=== PATIENT | male | born 1955 | race Caucasian/White ===

== ENCOUNTER 2017-11-30 12:35 | Inpatient (IN) ==
[2017-11-30] MEDS ORDERED: DUONEB 0.5 MG/3 MG ONE (12:55)
--- NOTE | 2017-11-30 13:34 | DR.GENAD ---
HPI - PCP Primary Care Physician: carolyn weller - HPI Comment HPI Comment: GETTING WORSE. NO FEVER. - Complaint/Symptoms Chief Complaint Doctors Comments: SWELLING AND REDNESS RT LEG TIMES 9 DAYS. Chief Complaint:: pt. stated his right lower leg has been swelling and very red for 9 days and it hasnt got any better - Nurses notes reviewed Nurses Notes Review: Yes - Source History Provided: Patient - Mode of Arrival Mode of Arrival: Ambulatory - Timing Onset of Chief Complaint: 11/27/17 Came on: Suddenly - Duration Duration: Constant Duration: Days - Severity Severity: Moderate PMH - PMH Past Medical History: Yes Past Medical History: Asthma Past Surgical History: Yes Surgical History: Tonsillectomy - Family History History of Family Medical Conditions: Yes Family Medical History: Cancer - Social History Does patient currently use any type of tobacco product: Yes Have you used tobacco products in the last 12 months: Yes Type of Tobacco Use: Cigarettes How many years tobacco product used: 25 Does any household member use tobacco: No Alcohol Use: Occasionally Do you use any recreational Drugs:: No Lives With: Mom Lives Where: Home - infectious screening In the last 2 months have you had wt loss of >10#?: NO Have you had fever, night sweats or hemotysis?: No Have you traveled outside the country in the last 6 months?: No Isolation: Standard ROS - Review of Systems Constitutional: No Symptoms Reported Eyes: No Symptoms Reported ENTM: No Symptoms Reported Respiratoy: No Symptoms Reported Cardiovascular: No Symptoms Reported Gastrointestinal/Abdominal: No Symptoms Reported Genitourinary: No Symptoms Reported Neurological: No Symptoms Reported Musculoskeletal: Right, Leg (SWELLING AND PAIN.) Integumentary: Bruises Hematologic/Lymphatic: No Symptoms Reported Endocrine: No Symptoms Reported All Other Systems: Reviewed and Negative PE - General Limitations: No Limitations General Appearance: Alert - Head Head Exam: Normal Inspection - Eyes Eye exam: Normal Appearance - ENT ENT Exam: Normal External Ear Exam External Ear Exam: Normal External Inspection TM/Canal Exam: Bilateral Normal Nose Exam: Normal Nose Exam Mouth Exam: Normal Inspection Throat Exam: Normal Inspection - Neck Neck Exam: Normal Inspection - Chest Chest Inspection: Symmetric Chest Wall Rise - Respiratory Respiratory Exam: Normal Lung Sounds Bilat Respiratory Exam: Bilateral Clear to Auscultation - Cardiovascular Cardiovascular Exam: Regular Rate, Normal Rhythm, Normal Heart Sounds - Abdominal Exam Abdominal Exam: Normal Inspection - Extremities Extremities Exam: Tenderness (RT LEG TENDER AND SWOLLEN.) - Vital Signs Vitals: Temperature 96.6 F Pulse Rate 99 Respiratory Rate 16 Blood Pressure 122/86 O2 Sat by Pulse Oximetry 97 MDM - Additional Information Additional Information Obtained From: Family - Differential Diagnosis Differential Diagnosis: CELLULITIS, CONTUSION, FRACTURE, STRAIN. Course - Treatment Treatment: SEE ORDERS. - Education/Counseling Education/Counseling: Patient, Education Educated On: Treatment, Needs for Follow Up ROR - Labs Reviewed Laboratory Results Reviewed?: Yes Result Diagrams: 12/18/17 06:17 12/18/17 06:17 - XRAY XRAY Findings: REPORT DISCUSS WITH PATIENT. - Diagnosis Discharge Problem: Cellulitis of right lower leg - Discharge Plan Condition: Stable
[2017-11-30 13:47] LABS: BASOPHILS # (AUTO) 0.1 X10^3/uL (0.0-0.1); BASOPHILS % (AUTO) 0.5 % (0.2-1.0); HEMATOCRIT 44.7 % (42.0-54.0); HEMOGLOBIN 15.7 g/dL (13.5-18.0); LYMPHOCYTES # (AUTO) 0.7 X10^3/uL (1.3-2.9); LYMPHOCYTES % (AUTO) 3.8 % (21.0-51.0); MEAN CORPUSCULAR HEMOGLOBIN 33.8 pg (27.0-34.0); MEAN CORPUSCULAR HGB CONC 35.1 g/dL (33.0-35.0); MEAN CORPUSCULAR VOLUME 96.3 fL (80.0-100.0); MEAN PLATELET VOLUME 8.4 fL (7.4-11.0); MONOCYTES # (AUTO) 0.5 x10^3/uL (0.3-0.8); NEUTROPHILS % (AUTO) 92.7 % (42.0-75.0); PLATELET COUNT 205 X10^3/uL (150.0-450.0); RED BLOOD COUNT 4.64 X10^6/uL (4.7-6.0); RED CELL DISTRIBUTION WIDTH 13.3 % (11.6-16.5); WHITE BLOOD COUNT 17.3 X10^3/uL (3.6-10.0)
--- NOTE | 2017-11-30 13:50 | RAD ---
Examination: Right lower leg, AP and lateral views History: Redness and swelling, infection Findings: No tibial or fibular abnormality is noted. There is no evidence for trauma or osteomyelitis . There is diffuse soft tissue swelling involving the lower leg. No abnormal calcification is identif ied. Impression: Soft tissue swelling, no significant osseous abnormality. Reported By:
[2017-11-30 14:09] LABS: ALANINE AMINOTRANSFERASE 17 Units/L (12-78); ALBUMIN 3.1 g/dL (3.4-5.0); ALKALINE PHOSPHATASE 94 Units/L (46-116); ASPARTATE AMINO TRANSFERASE 15 Units/L (15-37); BLOOD UREA NITROGEN 18 mg/dL (7-18); CALCIUM 8.3 mg/dL (8.5-10.1); CARBON DIOXIDE 28.3 mmol/L (21-32); CHLORIDE 98 mmol/L (98-107); COR NA(FOR HYPERGLY) 136 mmol/L (136-145); CREATININE 1.44 mg/dL (0.70-1.30); SODIUM 135 mmol/L (136-145); TOTAL PROTEIN 7.6 g/dL (6.4-8.2); eGFR NON BLACK RACES 52 (>60)
[2017-11-30 14:31] LABS: BAND NEUTROPHILS % 5 % (0-10); PLATELET MORPHOLOGY COMMENT NORMAL (NORMAL)
[2017-11-30 14:54] LABS: LACTIC ACID 1.4 mmol/L (0.4-2.0)
--- NOTE | 2017-11-30 16:24 | VAS ---
HISTORY: Right leg pain, infection, elevated D-dimer, edema, erythema Study: Right lower extremity venous Doppler Comparison: None TECHNIQUE: Multiple bundy scale as well as spectral and color flow Doppler images of the deep venous system were obtained of the right lower extremity. FINDINGS: The deep venous system of the Right lower extremity was evaluated from the level of the common femora l vein through the popliteal vein. Normal color flow and augmentation can be observed. In addition, normal compression is seen throughout the deep venous system. There is right inguinal lymphadenopath y with preservation of a echogenic fatty fibrovascular core and which is likely reactive. IMPRESSION: Negative for DVT. Probable reactive right inguinal lymphadenopathy. Reported By:
[2017-11-30] MEDS ORDERED: VANCOMYCIN HCL 1 GM VIAL 1 G in D5W 250 ML IV 250 ML IV SCH (17:00)
[2017-11-30] MEDS ORDERED: PHARMACY CONSULT - VANCOMYCIN XX SCH (17:00)
[2017-11-30] MEDS: NS 1000 ML 1,000 ML IV SCH (17:30)
[2017-11-30] MEDS ORDERED: NS 250 ML IV 250 ML IV ONE (18:19)
[2017-11-30] MEDS ORDERED: VANCOMYCIN HCL 1 GM VIAL ONE (18:19)
[2017-11-30] MEDS ORDERED: VANCOMYCIN HCL 500 MG VIAL ONE (18:20)
[2017-11-30] MEDS: VANCOMYCIN HCL 500 MG VIAL 250 MG, VANCOMYCIN HCL 1 GM VIAL 1 G in NS 250 ML IV 250 ML IV SCH (18:22)
[2017-11-30] MEDS: ZOSYN VIAL 3.375 GRAMS 3.375 G in NS 100 ML IV + SPIKE MINIBAG* 100 ML IV SCH (21:34)
[2017-12-01] MEDS: DUONEB 0.5 MG/3 MG NEB SCH ×5 (00:15→20:52)
[2017-12-01] MEDS ORDERED: TYLENOL 325 MG TAB PO PRN (04:55)
[2017-12-01] MEDS: ZOSYN VIAL 3.375 GRAMS 3.375 G in NS 100 ML IV + SPIKE MINIBAG* 100 ML IV SCH ×2 (05:07→13:57)
[2017-12-01] MEDS: NS 1000 ML 1,000 ML IV SCH ×2 (05:07→11:19)
[2017-12-01 06:31] LABS: BASOPHILS % (AUTO) 0.3 % (0.2-1.0); EOSINOPHILS % (AUTO) 0.1 % (0.9-2.9); HEMATOCRIT 38.5 % (42.0-54.0); HEMOGLOBIN 13.4 g/dL (13.5-18.0); LYMPHOCYTES # (AUTO) 0.7 X10^3/uL (1.3-2.9); LYMPHOCYTES % (AUTO) 4.2 % (21.0-51.0); MEAN CORPUSCULAR HEMOGLOBIN 33.5 pg (27.0-34.0); MEAN CORPUSCULAR HGB CONC 34.7 g/dL (33.0-35.0); MEAN CORPUSCULAR VOLUME 96.4 fL (80.0-100.0); MEAN PLATELET VOLUME 9.2 fL (7.4-11.0); MONOCYTES # (AUTO) 0.6 x10^3/uL (0.3-0.8); MONOCYTES % (AUTO) 4.2 % (0.0-13.0); NEUTROPHILS % (AUTO) 91.2 % (42.0-75.0); PLATELET COUNT 175 X10^3/uL (150.0-450.0); RED BLOOD COUNT 3.99 X10^6/uL (4.7-6.0); WHITE BLOOD COUNT 15.4 X10^3/uL (3.6-10.0)
[2017-12-01 06:47] LABS: ALANINE AMINOTRANSFERASE 15 Units/L (12-78); ALBUMIN 2.4 g/dL (3.4-5.0); ALKALINE PHOSPHATASE 77 Units/L (46-116); ASPARTATE AMINO TRANSFERASE 17 Units/L (15-37); BLOOD UREA NITROGEN 16 mg/dL (7-18); CALCIUM 7.6 mg/dL (8.5-10.1); CARBON DIOXIDE 25.5 mmol/L (21-32); CHLORIDE 98 mmol/L (98-107); COR CA(FOR HYPOALB) 8.9 mg/dL (8.5-10.1); COR NA(FOR HYPERGLY) 135 mmol/L (136-145); CREATININE 1.12 mg/dL (0.70-1.30); SODIUM 133 mmol/L (136-145); TOTAL PROTEIN 6.5 g/dL (6.4-8.2); eGFR NON BLACK RACES > 60 (>60)
[2017-12-01 07:24] LABS: BAND NEUTROPHILS % 6 % (0-10)
[2017-12-01 07:25] LABS: PLATELET MORPHOLOGY COMMENT NORMAL (NORMAL)
[2017-12-01] MEDS: VANCOMYCIN HCL 500 MG VIAL 250 MG, VANCOMYCIN HCL 1 GM VIAL 1 G in NS 250 ML IV 250 ML IV SCH (11:19)
[2017-12-01] MEDS: VANCOMYCIN HCL 500 MG VIAL 750 MG in D5W 250 ML IV 250 ML IV SCH ×2 (16:11→22:46)
--- NOTE | 2017-12-01 18:21 | DR.H&P ---
H&P - History & Physical for Day of: H&P Date: 11/30/17 - Chief Complaint Chief Complaint: RIGHT LOWER LEG PAIN, REDNESS - History of Present Illness History of Present Illness: 62 WM ER AMISSION AFTER PRESENTING WITH CIRUMFERENCIAL REDNESS AND CO SWELLING AND REDNESS TO RLE, PT DENIES KNOWN INJURY. 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 PT HAS PMH OF COPD, CURRENT SMOKER. PT HAS NEGATIVE US IN ER AND STABLE TIB/FIB XRAY. PT ADMITTED FOR IV ATBX, BLOOD AND WOUND CULTURES - Past Medical History Past Medical History: Asthma - Past Surgical History Surgical History: Tonsillectomy - Family History Family Medical History: Diabetes Mellitus, Cancer - Social History Does patient currently use any type of tobacco product: Yes Have you used tobacco products in the last 12 months: Yes Type of Tobacco Use: Cigarettes How many years tobacco product used: 20 Does any household member use tobacco: No Alcohol Use: Occasionally Drug Use: Prescription Drugs - Medications Home Medications: albuterol sulfate [Ventolin HFA] 1 inh INHALATION QIDRESP PRN 11/30/17 [History Confirmed 11/30/17] - Review of Systems Constitutional: Fever Eyes: No Symptoms Reported ENT: No Symptoms Reported Respiratory: Shortness of Breath Cardiovascular: No Symptoms Reported Gastrointestinal: No Symptoms Reported Genitourinary: No Symptoms Reported Musculoskeletal: Leg Pain Skin: Rash, Wound Neurological: No Symptoms Reported - Physical Exam Vital Signs: Temperature 98.9 F Pulse Rate [Bilateral Brachial 105 ] Pulse Rate 112 Respiratory Rate 18 Blood Pressure [Left Arm] 104/94 Blood Pressure 122/86 O2 Sat by Pulse Oximetry 95 Oriented: Normal Eyes: Normal Ear: Normal Nose: Normal Throat: Normal Respiratory: RLL Exp. Wheeze, LLL Exp. Wheeze Cardiovascular: Normal, Edema : Normal Auscultation: Bowel Sounds: Normal Palpation: Normal Tenderness: Normal Skin: Rash, Red, Tender, Hot, Wound (RUPTURED VESICULAR LESIONS TO RLE WITH DIFFUSE CIRCUMFERENTIAL REDNESS) Musculoskeletal: Right, Leg, Swelling, Tender Psychiatric: Normal Speech Pattern: Clear - Assessment/Plan (1) Cellulitis of right lower leg Status: Acute Plan: ADMIT, VANCOMYCIN IV, BLOOD AND WOUND CULTURES. BP MONITORING, COPD RESP CONSULT. REPEAT AM LABS, VERIFY HOME MEDS. PAIN CONTROL (2) Open wound of right lower extremity Status: Acute (3) COPD (chronic obstructive pulmonary disease) Status: Acute - Allergies Allergies/Adverse Reactions: Allergies Allergy/AdvReac Type Severity Reaction Status Date / Time No Known Drug Allergies Allergy Verified 11/30/17 12:36
--- NOTE | 2017-12-01 18:25 | PCM.PROG ---
Progress Note - Progress Note for Day of Date: 12/01/17 - Subjective Subjective: 62 WM ER ADMISSION ON 11/30 WITH RLE CELLULITIS. PT CO PAIN TO RLE, REDNESS ACCESSENDING UP INNER THIGH. PLAN TO CONTINUE PAIN CONTROL, IV ATBX, CULTURES PENDING - Past Medical Family Social History Past Med/Fam/Surg Hx: No changes since H&P Allergies: Allergies No Known Drug Allergies Allergy (Verified 11/30/17 12:36) - Review of Systems ROS: No change since H&P - Vital Signs and I&O's Vital Signs: Temperature 98.9 F Pulse Rate [Bilateral Brachial 105 ] Pulse Rate 112 Respiratory Rate 18 Blood Pressure [Left Arm] 104/94 Blood Pressure 122/86 O2 Sat by Pulse Oximetry 95 Intake and Output: Intake & Output 11/29/17 11/30/17 12/01/17 12/02/17 11:59 11:59 11:59 11:59 Intake Total 1600 / 1600 1320 / 1320 Balance 1600 / 1600 1320 / 1320 - Physical Exam Oriented: Normal Eyes: Normal Ear: Normal Nose: Normal Throat: Normal Respiratory: Wheezes Cardiovascular: Normal, Edema : Normal Auscultation: Bowel Sounds: Normal Tenderness: Normal Skin: Rash, Red, Tender, Hot, Wound (RUPTURED VESICULAR LESIONS TO RLE WITH DIFFUSE CIRCUMFERENTIAL REDNESS) Musculoskeletal: Right, Leg, Swelling, Tender Psychiatric: Normal Speech Pattern: Clear - Laboratory and Diagnostics Result Diagrams: 12/01/17 05:33 12/01/17 05:33 Labs: 11/30/17 13:44 Leg - Right Gram Stain - Final 11/30/17 13:44 Leg - Right Wound Culture - Preliminary Laboratory WBC 15.4 X10^3/uL (3.6-10.0) H 12/01/17 05:33 RBC 3.99 X10^6/uL (4.7-6.0) L 12/01/17 05:33 Hgb 13.4 g/dL (13.5-18.0) L D 12/01/17 05:33 Hct 38.5 % (42.0-54.0) L 12/01/17 05:33 MCV 96.4 fL (80.0-100.0) 12/01/17 05:33 MCH 33.5 pg (27.0-34.0) 12/01/17 05:33 MCHC 34.7 g/dL (33.0-35.0) 12/01/17 05:33 RDW 13.0 % (11.6-16.5) 12/01/17 05:33 Plt Count 175 X10^3/uL (150.0-450.0) 12/01/17 05:33 Plt Count Comment Adequate (ADEQUATE) 12/01/17 05:33 MPV 9.2 fL (7.4-11.0) 12/01/17 05:33 Neut % (Auto) 91.2 % (42.0-75.0) H 12/01/17 05:33 Lymph % (Auto) 4.2 % (21.0-51.0) L 12/01/17 05:33 [place] % (Auto) 4.2 % (0.0-13.0) 12/01/17 05:33 Eos % (Auto) 0.1 % (0.9-2.9) L 12/01/17 05:33 Baso % (Auto) 0.3 % (0.2-1.0) 12/01/17 05:33 Neut # (Auto) 14.0 x10^3/uL (2.2-4.8) H 12/01/17 05:33 Lymph # (Auto) 0.7 X10^3/uL (1.3-2.9) L 12/01/17 05:33 [place] # (Auto) 0.6 x10^3/uL (0.3-0.8) 12/01/17 05:33 Eos # (Auto) 0.0 x10^3/uL (0.0-0.2) 12/01/17 05:33 Baso # (Auto) 0.0 X10^3/uL (0.0-0.1) 12/01/17 05:33 Absolute Nucleated RBC 0.0 /100WBC 12/01/17 05:33 Total Counted 100 12/01/17 05:33 Neutrophils % (Manual) 82 % (39-76) H 12/01/17 05:33 Band Neutrophils % 6 % (0-10) 12/01/17 05:33 Lymphocytes % (Manual) 9 % (13-43) L 12/01/17 05:33 Monocytes % (Manual) 3 % (4-9) L 12/01/17 05:33 Plt Morphology Comment Normal (NORMAL) 12/01/17 05:33 RBC Morphology Normal (NORMAL) 12/01/17 05:33 D-Dimer 1990 ng/mL (0-400) H* 11/30/17 14:07 Sodium 133 mmol/L (136-145) L 12/01/17 05:33 Corrected Sodium 135 mmol/L (136-145) L 12/01/17 05:33 Potassium 3.6 mmol/L (3.5-5.1) 12/01/17 05:33 Chloride 98 mmol/L (98-107) 12/01/17 05:33 Carbon Dioxide 25.5 mmol/L (21-32) 12/01/17 05:33 BUN 16 mg/dL (7-18) 12/01/17 05:33 Creatinine 1.12 mg/dL (0.70-1.30) 12/01/17 05:33 Est GFR (MDRD) Af Amer > 60 (>60) 12/01/17 05:33 Est GFR (MDRD) Non-Af > 60 (>60) 12/01/17 05:33 Glucose 168 mg/dL (65-99) H 12/01/17 05:33 Lactic Acid 1.4 mmol/L (0.4-2.0) 11/30/17 14:07 Calcium 7.6 mg/dL (8.5-10.1) L 12/01/17 05:33 Corrected Calcium 8.9 mg/dL (8.5-10.1) 12/01/17 05:33 Total Bilirubin 0.50 mg/dL (0.2-1.0) 12/01/17 05:33 AST 17 Units/L (15-37) 12/01/17 05:33 ALT 15 Units/L (12-78) 12/01/17 05:33 Alkaline Phosphatase 77 Units/L (46-116) 12/01/17 05:33 C-Reactive Protein 290.00 mg/L (0-3.0) H 11/30/17 13:41 Total Protein 6.5 g/dL (6.4-8.2) 12/01/17 05:33 Albumin 2.4 g/dL (3.4-5.0) L 12/01/17 05:33 Globulin 4.1 g/dL (2.5-4.5) 12/01/17 05:33 Albumin/Globulin Ratio 0.6 Ratio (1.1-2.1) L 12/01/17 05:33 - Plan (1) Cellulitis of right lower leg Status: Acute Plan: VANCOMYCIN IV, BLOOD AND WOUND CULTURES. BP MONITORING, COPD RESP CONSULT. REPEAT AM LABS, VERIFY HOME MEDS. PAIN CONTROL (2) Open wound of right lower extremity Status: Acute (3) COPD (chronic obstructive pulmonary disease) Status: Acute
[2017-12-01 20:56] LABS: CREATININE 1.13 mg/dL (0.70-1.30); VANCOMYCIN,TROUGH 16.8 ug/mL (15-20)
[2017-12-01] MEDS: NORCO 10/325 TAB PO PRN (21:00)
[2017-12-01] MEDS: COLACE CAP 100 MG PO SCH (22:44)
[2017-12-01] MEDS: ZOSYN VIAL 4.5 GRAMS 4.5 G in NS 100 ML IV + SPIKE MINIBAG* 100 ML IV SCH (22:50)
[2017-12-02] MEDS: NS 1000 ML 1,000 ML IV SCH ×3 (02:00→16:46)
[2017-12-02] MEDS: ZOSYN VIAL 4.5 GRAMS 4.5 G in NS 100 ML IV + SPIKE MINIBAG* 100 ML IV SCH ×3 (05:51→22:22)
[2017-12-02] MEDS: VANCOMYCIN HCL 500 MG VIAL 750 MG in D5W 250 ML IV 250 ML IV SCH ×3 (05:51→22:10)
[2017-12-02] MEDS: DUONEB 0.5 MG/3 MG NEB SCH ×4 (07:47→20:46)
[2017-12-02 09:23] LABS: BASOPHILS # (AUTO) 0.1 X10^3/uL (0.0-0.1); BASOPHILS % (AUTO) 0.6 % (0.2-1.0); EOSINOPHILS # (AUTO) 0.1 x10^3/uL (0.0-0.2); EOSINOPHILS % (AUTO) 0.9 % (0.9-2.9); HEMATOCRIT 38.3 % (42.0-54.0); HEMOGLOBIN 13.1 g/dL (13.5-18.0); LYMPHOCYTES # (AUTO) 0.9 X10^3/uL (1.3-2.9); LYMPHOCYTES % (AUTO) 7.6 % (21.0-51.0); MEAN CORPUSCULAR HEMOGLOBIN 33.2 pg (27.0-34.0); MEAN CORPUSCULAR HGB CONC 34.2 g/dL (33.0-35.0); MEAN CORPUSCULAR VOLUME 97.2 fL (80.0-100.0); MEAN PLATELET VOLUME 9.2 fL (7.4-11.0); MONOCYTES # (AUTO) 0.7 x10^3/uL (0.3-0.8); MONOCYTES % (AUTO) 5.8 % (0.0-13.0); NEUTROPHILS # (AUTO) 10.5 x10^3/uL (2.2-4.8); NEUTROPHILS % (AUTO) 85.1 % (42.0-75.0); PLATELET COUNT 185 X10^3/uL (150.0-450.0); RED BLOOD COUNT 3.94 X10^6/uL (4.7-6.0); RED CELL DISTRIBUTION WIDTH 12.8 % (11.6-16.5); WHITE BLOOD COUNT 12.4 X10^3/uL (3.6-10.0)
[2017-12-02 09:38] LABS: ALANINE AMINOTRANSFERASE 22 Units/L (12-78); ALBUMIN 2.3 g/dL (3.4-5.0); ALKALINE PHOSPHATASE 82 Units/L (46-116); ASPARTATE AMINO TRANSFERASE 27 Units/L (15-37); BLOOD UREA NITROGEN 11 mg/dL (7-18); CALCIUM 7.5 mg/dL (8.5-10.1); CARBON DIOXIDE 30.5 mmol/L (21-32); CHLORIDE 100 mmol/L (98-107); COR CA(FOR HYPOALB) 8.9 mg/dL (8.5-10.1); COR NA(FOR HYPERGLY) 137 mmol/L (136-145); SODIUM 136 mmol/L (136-145); TOTAL PROTEIN 6.4 g/dL (6.4-8.2); eGFR NON BLACK RACES > 60 (>60)
--- NOTE | 2017-12-02 09:41 | RAD ---
HISTORY: COPD, shortness of breath Study: Single-view chest Comparison: No priors Findings: Trachea is midline. There is cardiomegaly with aortic uncoiling and very mild pulmonary vascular armando estion. There is mild lung hyperinflation. Increased interstitial markings are present bilaterally wh ich may be chronic. No consolidation, pleural fluid or pneumothorax is seen. Osseous structures are i ntact. Osseous structures are intact. IMPRESSION: Hypertensive configuration. Hyperinflation of the lungs with increased interstitial markings which may be chronic. No consolidati on is seen. Reported By:
[2017-12-02] MEDS: NORCO 10/325 TAB PO PRN (11:31)
[2017-12-02] MEDS ORDERED: PHARMACY COMMENT IV NR (13:30)
--- NOTE | 2017-12-02 17:46 | PCM.PROG ---
Progress Note - Progress Note for Day of Date: 12/09/17 - Subjective Subjective: 62 WM ER ADMISSION ON 11/30 WITH RLE CELLULITIS. PT CO PAIN TO RLE, REDNESS ACCESSENDING UP INNER THIGH, WHICH HAS IMPROVED SLIGHTLY SINCE ADDING ZOSYN AND VANCOMYCIN IV. PLAN TO CONTINUE PAIN CONTROL, IV ATBX, CULTURES PENDING - Past Medical Family Social History Past Med/Fam/Surg Hx: No changes since H&P Allergies: Allergies No Known Drug Allergies Allergy (Verified 11/30/17 12:36) - Review of Systems ROS: No change since H&P - Vital Signs and I&O's Vital Signs: Temperature 97.4 F Pulse Rate [Bilateral Brachial 102 ] Pulse Rate 104 Respiratory Rate 20 Blood Pressure [Left Arm] 127/79 Blood Pressure 122/86 O2 Sat by Pulse Oximetry 95 Intake and Output: Intake & Output 11/30/17 12/01/17 12/02/17 12/03/17 11:59 11:59 11:59 11:59 Intake Total 1600 / 1600 5490 / 5490 2220 / 2220 Balance 1600 / 1600 5490 / 5490 2220 / 2220 - Physical Exam Oriented: Normal Eyes: Normal Ear: Normal Nose: Normal Throat: Normal Respiratory: Wheezes Cardiovascular: Normal, Edema : Normal Auscultation: Bowel Sounds: Normal Tenderness: Normal Skin: Rash, Red, Tender, Hot, Wound (RUPTURED VESICULAR LESIONS TO RLE WITH DIFFUSE CIRCUMFERENTIAL REDNESS) Musculoskeletal: Right, Leg, Swelling, Tender Psychiatric: Normal Speech Pattern: Clear, Appropriate - Laboratory and Diagnostics Result Diagrams: 12/02/17 09:10 12/02/17 09:10 Labs: 11/30/17 14:13 Blood Blood Culture - Preliminary 11/30/17 14:07 Blood Blood Culture - Preliminary 11/30/17 13:44 Leg - Right Gram Stain - Final 11/30/17 13:44 Leg - Right Wound Culture - Preliminary Laboratory WBC 12.4 X10^3/uL (3.6-10.0) H 12/02/17 09:10 RBC 3.94 X10^6/uL (4.7-6.0) L 12/02/17 09:10 Hgb 13.1 g/dL (13.5-18.0) L 12/02/17 09:10 Hct 38.3 % (42.0-54.0) L 12/02/17 09:10 MCV 97.2 fL (80.0-100.0) 12/02/17 09:10 MCH 33.2 pg (27.0-34.0) 12/02/17 09:10 MCHC 34.2 g/dL (33.0-35.0) 12/02/17 09:10 RDW 12.8 % (11.6-16.5) 12/02/17 09:10 Plt Count 185 X10^3/uL (150.0-450.0) 12/02/17 09:10 Plt Count Comment Adequate (ADEQUATE) 12/01/17 05:33 MPV 9.2 fL (7.4-11.0) 12/02/17 09:10 Neut % (Auto) 85.1 % (42.0-75.0) H 12/02/17 09:10 Lymph % (Auto) 7.6 % (21.0-51.0) L 12/02/17 09:10 [place] % (Auto) 5.8 % (0.0-13.0) 12/02/17 09:10 Eos % (Auto) 0.9 % (0.9-2.9) 12/02/17 09:10 Baso % (Auto) 0.6 % (0.2-1.0) 12/02/17 09:10 Neut # (Auto) 10.5 x10^3/uL (2.2-4.8) H 12/02/17 09:10 Lymph # (Auto) 0.9 X10^3/uL (1.3-2.9) L 12/02/17 09:10 [place] # (Auto) 0.7 x10^3/uL (0.3-0.8) 12/02/17 09:10 Eos # (Auto) 0.1 x10^3/uL (0.0-0.2) 12/02/17 09:10 Baso # (Auto) 0.1 X10^3/uL (0.0-0.1) 12/02/17 09:10 Absolute Nucleated RBC 0.1 /100WBC 12/02/17 09:10 Total Counted 100 12/01/17 05:33 Neutrophils % (Manual) 82 % (39-76) H 12/01/17 05:33 Band Neutrophils % 6 % (0-10) 12/01/17 05:33 Lymphocytes % (Manual) 9 % (13-43) L 12/01/17 05:33 Monocytes % (Manual) 3 % (4-9) L 12/01/17 05:33 Plt Morphology Comment Normal (NORMAL) 12/01/17 05:33 RBC Morphology Normal (NORMAL) 12/01/17 05:33 D-Dimer 1990 ng/mL (0-400) H* 11/30/17 14:07 Sodium 136 mmol/L (136-145) 12/02/17 09:10 Corrected Sodium 137 mmol/L (136-145) 12/02/17 09:10 Potassium 3.6 mmol/L (3.5-5.1) 12/02/17 09:10 Chloride 100 mmol/L (98-107) 12/02/17 09:10 Carbon Dioxide 30.5 mmol/L (21-32) 12/02/17 09:10 BUN 11 mg/dL (7-18) 12/02/17 09:10 Creatinine 1.10 mg/dL (0.70-1.30) 12/02/17 09:10 Est GFR (MDRD) Af Amer > 60 (>60) 12/02/17 09:10 Est GFR (MDRD) Non-Af > 60 (>60) 12/02/17 09:10 Glucose 134 mg/dL (65-99) H 12/02/17 09:10 Lactic Acid 1.4 mmol/L (0.4-2.0) 11/30/17 14:07 Calcium 7.5 mg/dL (8.5-10.1) L 12/02/17 09:10 Corrected Calcium 8.9 mg/dL (8.5-10.1) 12/02/17 09:10 Total Bilirubin 0.50 mg/dL (0.2-1.0) 12/02/17 09:10 AST 27 Units/L (15-37) 12/02/17 09:10 ALT 22 Units/L (12-78) 12/02/17 09:10 Alkaline Phosphatase 82 Units/L (46-116) 12/02/17 09:10 C-Reactive Protein 290.00 mg/L (0-3.0) H 11/30/17 13:41 Total Protein 6.4 g/dL (6.4-8.2) 12/02/17 09:10 Albumin 2.3 g/dL (3.4-5.0) L 12/02/17 09:10 Globulin 4.1 g/dL (2.5-4.5) 12/02/17 09:10 Albumin/Globulin Ratio 0.6 Ratio (1.1-2.1) L 12/02/17 09:10 Vancomycin Trough 16.8 ug/mL (15-20) 12/01/17 20:36 - Plan (1) Cellulitis of right lower leg Status: Acute Plan: IV ANTIBIOTICS, BLOOD AND WOUND CULTURES. BP MONITORING, COPD RESP CONSULT. REPEAT AM LABS, VERIFY HOME MEDS. PAIN CONTROL (2) Open wound of right lower extremity Status: Acute (3) COPD (chronic obstructive pulmonary disease) Status: Acute
[2017-12-02] MEDS: COLACE CAP 100 MG PO SCH (22:10)
[2017-12-03] MEDS: DUONEB 0.5 MG/3 MG NEB SCH ×5 (03:03→20:25)
[2017-12-03 05:50] LABS: VANCOMYCIN,TROUGH 11.2 ug/mL (15-20)
[2017-12-03] MEDS: ZOSYN VIAL 4.5 GRAMS 4.5 G in NS 100 ML IV + SPIKE MINIBAG* 100 ML IV SCH ×3 (06:03→22:05)
[2017-12-03 06:12] LABS: BASOPHILS % (AUTO) 0.3 % (0.2-1.0); EOSINOPHILS # (AUTO) 0.1 x10^3/uL (0.0-0.2); HEMOGLOBIN 12.8 g/dL (13.5-18.0); LYMPHOCYTES # (AUTO) 0.8 X10^3/uL (1.3-2.9); LYMPHOCYTES % (AUTO) 6.6 % (21.0-51.0); MEAN CORPUSCULAR HEMOGLOBIN 33.5 pg (27.0-34.0); MEAN CORPUSCULAR HGB CONC 34.5 g/dL (33.0-35.0); MEAN CORPUSCULAR VOLUME 97.1 fL (80.0-100.0); MEAN PLATELET VOLUME 9.2 fL (7.4-11.0); MONOCYTES # (AUTO) 0.8 x10^3/uL (0.3-0.8); MONOCYTES % (AUTO) 6.7 % (0.0-13.0); NEUTROPHILS # (AUTO) 10.4 x10^3/uL (2.2-4.8); NEUTROPHILS % (AUTO) 85.4 % (42.0-75.0); PLATELET COUNT 203 X10^3/uL (150.0-450.0); RED BLOOD COUNT 3.81 X10^6/uL (4.7-6.0); WHITE BLOOD COUNT 12.2 X10^3/uL (3.6-10.0)
[2017-12-03] MEDS: NS 1000 ML 1,000 ML IV SCH ×3 (06:22→23:54)
[2017-12-03] MEDS: VANCOMYCIN HCL 500 MG VIAL 750 MG in D5W 250 ML IV 250 ML IV SCH ×3 (06:23→21:08)
[2017-12-03 06:30] LABS: ALANINE AMINOTRANSFERASE 37 Units/L (12-78); ALBUMIN 2.1 g/dL (3.4-5.0); ALKALINE PHOSPHATASE 95 Units/L (46-116); ASPARTATE AMINO TRANSFERASE 45 Units/L (15-37); BLOOD UREA NITROGEN 7 mg/dL (7-18); CALCIUM 7.2 mg/dL (8.5-10.1); CHLORIDE 105 mmol/L (98-107); COR CA(FOR HYPOALB) 8.7 mg/dL (8.5-10.1); COR NA(FOR HYPERGLY) 142 mmol/L (136-145); CREATININE 1.06 mg/dL (0.70-1.30); SODIUM 141 mmol/L (136-145); TOTAL PROTEIN 6.1 g/dL (6.4-8.2); eGFR NON BLACK RACES > 60 (>60)
[2017-12-03] MEDS ORDERED: K-RIDER 10 MEQ/NS 100 ML 10 MEQ/100 ML BAG IV PRN (07:03)
[2017-12-03] MEDS ORDERED: POTASSIUM CHLORIDE LIQ 20 MEQ UDC PO PRN (07:03)
[2017-12-03] MEDS ORDERED: POTASSIUM CHL 60 MEQ/NS 0.45% 500 ML IV PRN (07:03)
--- NOTE | 2017-12-03 07:26 | RAD ---
HISTORY: Shortness of breath Study: Chest AP portable Comparison: 12/02/2017 Findings: The heart is enlarged. No congestive heart failure is noted. The lungs are well inflated and free of acute alveolar infiltrates. No pleural effusions are identified. The bony thorax is unremarkable. IMPRESSION: Moderate cardiomegaly without congestive heart failure No infiltrates Reported By:
[2017-12-03] MEDS: K-LYTE EFFERVESCENT PO PRN (09:31)
[2017-12-03] MEDS: SILVADENE TOP SCH ×2 (11:28→22:05)
--- NOTE | 2017-12-03 13:06 | PCM.PROG ---
Progress Note - Progress Note for Day of Date: 12/03/17 - Subjective Subjective: 62 WM ER ADMISSION ON 11/30 WITH RLE CELLULITIS. PT CO PAIN TO RLE, REDNESS ACCESSENDING UP INNER THIGH, WHICH HAS IMPROVED SLIGHTLY SINCE ADDING ZOSYN AND VANCOMYCIN IV. PLAN TO CONTINUE PAIN CONTROL, IV ATBX, CULTURES POSTIVE FOR STAPH. PT CO INCREASED PRESSURE AND SWELLING WHEN HE AMBULATED, INCREASED FLUID COLLECTION TO INSIDE RIGHT LOWER LEG POSSIBLE ABSCESS, DISCUSSED SURGICAL CONSULT - Past Medical Family Social History Past Med/Fam/Surg Hx: No changes since H&P Allergies: Allergies No Known Drug Allergies Allergy (Verified 11/30/17 12:36) - Review of Systems ROS: No change since H&P - Vital Signs and I&O's Vital Signs: Temperature 98.2 F Pulse Rate [Apical] 102 Pulse Rate [Bilateral Brachial 112 ] Pulse Rate 102 Respiratory Rate 22 Blood Pressure [Left Arm] 156/96 Blood Pressure 122/86 O2 Sat by Pulse Oximetry 97 Intake and Output: Intake & Output 12/01/17 12/02/17 12/03/17 12/04/17 11:59 11:59 11:59 11:59 Intake Total 1600 / 1600 5490 / 5490 3980 / 3980 Balance 1600 / 1600 5490 / 5490 3980 / 3980 - Physical Exam Oriented: Normal Eyes: Normal Ear: Normal Nose: Normal Throat: Normal Respiratory: Wheezes Cardiovascular: Normal, Edema : Normal Auscultation: Bowel Sounds: Normal Tenderness: Normal Skin: Rash, Red, Tender, Hot, Wound (RUPTURED VESICULAR LESIONS TO RLE WITH DIFFUSE CIRCUMFERENTIAL REDNESS) Musculoskeletal: Right, Leg, Swelling, Tender Psychiatric: Normal Speech Pattern: Clear, Appropriate - Laboratory and Diagnostics Result Diagrams: 12/03/17 05:28 12/03/17 05:28 Labs: 12/03/17 10:51 Leg - Right Gram Stain - Final 12/01/17 05:45 Blood Blood Culture - Preliminary 12/01/17 05:33 Blood Blood Culture - Preliminary 11/30/17 13:44 Leg - Right Gram Stain - Final 11/30/17 13:44 Leg - Right Wound Culture - Final 11/30/17 14:13 Blood Blood Culture - Preliminary 11/30/17 14:07 Blood Blood Culture - Preliminary Laboratory WBC 12.2 X10^3/uL (3.6-10.0) H 12/03/17 05:28 RBC 3.81 X10^6/uL (4.7-6.0) L 12/03/17 05:28 Hgb 12.8 g/dL (13.5-18.0) L 12/03/17 05:28 Hct 37.0 % (42.0-54.0) L 12/03/17 05:28 MCV 97.1 fL (80.0-100.0) 12/03/17 05:28 MCH 33.5 pg (27.0-34.0) 12/03/17 05:28 MCHC 34.5 g/dL (33.0-35.0) 12/03/17 05:28 RDW 13.0 % (11.6-16.5) 12/03/17 05:28 Plt Count 203 X10^3/uL (150.0-450.0) 12/03/17 05:28 Plt Count Comment Adequate (ADEQUATE) 12/01/17 05:33 MPV 9.2 fL (7.4-11.0) 12/03/17 05:28 Neut % (Auto) 85.4 % (42.0-75.0) H 12/03/17 05:28 Lymph % (Auto) 6.6 % (21.0-51.0) L 12/03/17 05:28 [place] % (Auto) 6.7 % (0.0-13.0) 12/03/17 05:28 Eos % (Auto) 1.0 % (0.9-2.9) 12/03/17 05:28 Baso % (Auto) 0.3 % (0.2-1.0) 12/03/17 05:28 Neut # (Auto) 10.4 x10^3/uL (2.2-4.8) H 12/03/17 05:28 Lymph # (Auto) 0.8 X10^3/uL (1.3-2.9) L 12/03/17 05:28 [place] # (Auto) 0.8 x10^3/uL (0.3-0.8) 12/03/17 05:28 Eos # (Auto) 0.1 x10^3/uL (0.0-0.2) 12/03/17 05:28 Baso # (Auto) 0.0 X10^3/uL (0.0-0.1) 12/03/17 05:28 Absolute Nucleated RBC 0.0 /100WBC 12/03/17 05:28 Total Counted 100 12/01/17 05:33 Neutrophils % (Manual) 82 % (39-76) H 12/01/17 05:33 Band Neutrophils % 6 % (0-10) 12/01/17 05:33 Lymphocytes % (Manual) 9 % (13-43) L 12/01/17 05:33 Monocytes % (Manual) 3 % (4-9) L 12/01/17 05:33 Plt Morphology Comment Normal (NORMAL) 12/01/17 05:33 RBC Morphology Normal (NORMAL) 12/01/17 05:33 D-Dimer 1990 ng/mL (0-400) H* 11/30/17 14:07 Sodium 141 mmol/L (136-145) 12/03/17 05:28 Corrected Sodium 142 mmol/L (136-145) 12/03/17 05:28 Potassium 3.4 mmol/L (3.5-5.1) L 12/03/17 05:28 Chloride 105 mmol/L (98-107) 12/03/17 05:28 Carbon Dioxide 28.0 mmol/L (21-32) 12/03/17 05:28 BUN 7 mg/dL (7-18) 12/03/17 05:28 Creatinine 1.06 mg/dL (0.70-1.30) 12/03/17 05:28 Est GFR (MDRD) Af Amer > 60 (>60) 12/03/17 05:28 Est GFR (MDRD) Non-Af > 60 (>60) 12/03/17 05:28 Glucose 148 mg/dL (65-99) H 12/03/17 05:28 Lactic Acid 1.4 mmol/L (0.4-2.0) 11/30/17 14:07 Calcium 7.2 mg/dL (8.5-10.1) L 12/03/17 05:28 Corrected Calcium 8.7 mg/dL (8.5-10.1) 12/03/17 05:28 Magnesium 2.0 mg/dL (1.7-2.9) 12/03/17 05:28 Total Bilirubin 0.60 mg/dL (0.2-1.0) 12/03/17 05:28 AST 45 Units/L (15-37) H 12/03/17 05:28 ALT 37 Units/L (12-78) 12/03/17 05:28 Alkaline Phosphatase 95 Units/L (46-116) 12/03/17 05:28 C-Reactive Protein 290.00 mg/L (0-3.0) H 11/30/17 13:41 Total Protein 6.1 g/dL (6.4-8.2) L 12/03/17 05:28 Albumin 2.1 g/dL (3.4-5.0) L 12/03/17 05:28 Globulin 4.0 g/dL (2.5-4.5) 12/03/17 05:28 Albumin/Globulin Ratio 0.5 Ratio (1.1-2.1) L 12/03/17 05:28 Vancomycin Trough 11.2 ug/mL (15-20) L 12/03/17 05:28 - Plan (1) Cellulitis of right lower leg Status: Acute Plan: IV ANTIBIOTICS, BLOOD AND WOUND CULTURES. BP MONITORING, COPD RESP CONSULT. REPEAT AM LABS, VERIFY HOME MEDS. PAIN CONTROL (2) Open wound of right lower extremity Status: Acute (3) COPD (chronic obstructive pulmonary disease) Status: Acute (4) Leg abscess Status: Acute Plan: RLE CELLULITIS WITH POSSIBLE ABSCESS FORMATION, CONSULT SURGEON
[2017-12-03] MEDS: LOVENOX INJ 40 MG SYR SC SCH (14:54)
[2017-12-03] MEDS: NORCO 10/325 TAB PO PRN ×2 (15:02→21:07)
[2017-12-03] MEDS: TORADOL 30 MG VIAL IVP PRN ×2 (15:25→23:54)
--- NOTE | 2017-12-03 15:34 | CT ---
Indication: Cellulitis . Exam: CT scan right lower leg without contrast. Technique: Axial spiral images were obtained from the distal femur through the left ankle without con trast. Coronal and sagittal MPGR reconstructions were performed. Findings: The distal visualized distal femoral condyle is intact. The tibia and fibula are intact . T he ankle mortise is intact and the visualized ankle is unremarkable . There is moderate to severe str anding and edema in the subcutaneous soft tissues beginning along the distal femur and extending infe riorly around the knee and calf region down to the ankle and along the dorsum of the foot . There is no obvious focal fluid collection or mass seen . There is no air in the soft tissues . The underlying musculature is intact and normal density. There is a small effusion in the knee joint with asymmetry of femoral notch . The patella is intact . There is no periosteal reaction. Impression: Extensive cellulitis and/or edema throughout the visualized right lower leg extending around the ankl e and into the dorsum of the foot with no obvious focal fluid collection or abscess seen. No acute bony abnormality seen. Small effusion in the right knee. Reported By:
[2017-12-03] MEDS: COLACE CAP 100 MG PO SCH (21:08)
[2017-12-03] MEDS ORDERED: STERILE WATER IRRIGATION IR ONE (22:29)
[2017-12-04 06:01] LABS: BASOPHILS # (AUTO) 0.1 X10^3/uL (0.0-0.1); BASOPHILS % (AUTO) 1.2 % (0.2-1.0); EOSINOPHILS # (AUTO) 0.3 x10^3/uL (0.0-0.2); EOSINOPHILS % (AUTO) 3.1 % (0.9-2.9); HEMATOCRIT 38.2 % (42.0-54.0); HEMOGLOBIN 13.3 g/dL (13.5-18.0); LYMPHOCYTES # (AUTO) 1.1 X10^3/uL (1.3-2.9); LYMPHOCYTES % (AUTO) 9.9 % (21.0-51.0); MEAN CORPUSCULAR HEMOGLOBIN 33.8 pg (27.0-34.0); MEAN CORPUSCULAR HGB CONC 34.7 g/dL (33.0-35.0); MEAN CORPUSCULAR VOLUME 97.4 fL (80.0-100.0); MEAN PLATELET VOLUME 9.6 fL (7.4-11.0); MONOCYTES # (AUTO) 0.8 x10^3/uL (0.3-0.8); MONOCYTES % (AUTO) 7.7 % (0.0-13.0); NEUTROPHILS # (AUTO) 8.4 x10^3/uL (2.2-4.8); NEUTROPHILS % (AUTO) 78.1 % (42.0-75.0); PLATELET COUNT 241 X10^3/uL (150.0-450.0); RED BLOOD COUNT 3.93 X10^6/uL (4.7-6.0); RED CELL DISTRIBUTION WIDTH 13.3 % (11.6-16.5); WHITE BLOOD COUNT 10.7 X10^3/uL (3.6-10.0)
[2017-12-04 06:06] LABS: ALANINE AMINOTRANSFERASE 41 Units/L (12-78); ALBUMIN 2.1 g/dL (3.4-5.0); ALKALINE PHOSPHATASE 130 Units/L (46-116); ASPARTATE AMINO TRANSFERASE 37 Units/L (15-37); BLOOD UREA NITROGEN 9 mg/dL (7-18); CALCIUM 8.5 mg/dL (8.5-10.1); CARBON DIOXIDE 28.7 mmol/L (21-32); CHLORIDE 102 mmol/L (98-107); COR NA(FOR HYPERGLY) 139 mmol/L (136-145); CREATININE 1.03 mg/dL (0.70-1.30); SODIUM 138 mmol/L (136-145); TOTAL PROTEIN 6.4 g/dL (6.4-8.2); eGFR NON BLACK RACES > 60 (>60)
[2017-12-04] MEDS: ZOSYN VIAL 4.5 GRAMS 4.5 G in NS 100 ML IV + SPIKE MINIBAG* 100 ML IV SCH ×3 (06:10→21:05)
[2017-12-04] MEDS: VANCOMYCIN HCL 500 MG VIAL 750 MG in D5W 250 ML IV 250 ML IV SCH ×2 (06:10→14:34)
[2017-12-04] MEDS: DUONEB 0.5 MG/3 MG NEB SCH ×5 (07:08→21:51)
[2017-12-04] MEDS: LOVENOX INJ 40 MG SYR SC SCH (08:34)
[2017-12-04] MEDS: SILVADENE TOP SCH ×2 (08:35→21:15)
[2017-12-04] MEDS: POTASSIUM CHL 40 MEQ/NS 0.45% 500 ML IV PRN (08:53)
[2017-12-04] MEDS: NS 1000 ML 1,000 ML IV SCH ×3 (09:14→17:10)
--- NOTE | 2017-12-04 11:22 | DR.PROGNOT ---
Hospital Progress Notes - Progress Note for Day of: Progress Note Date: 12/04/17 - Chief Complaint Chief Complaint: feeling better today with less pain and pressure .. still having serous drainage from the open areas . all cultures are negative so far . Vancomycin level 11.2 with normal renal function . afebrile - Past Medical Family Social History Past Med/Fam/Surg Hx: No changes since H&P Allergies: Allergies No Known Drug Allergies Allergy (Verified 11/30/17 12:36) - Review Of Systems ROS: No change since H&P - Vital Signs Vital Signs: Temperature 97.4 F Pulse Rate [Right Brachial] 98 Pulse Rate [Apical] 102 Pulse Rate [Bilateral Brachial 123 ] Pulse Rate 111 Respiratory Rate 22 Blood Pressure [Right Arm] 128/77 Blood Pressure [Left Arm] 157/73 Blood Pressure 122/86 O2 Sat by Pulse Oximetry 92 - Physical Exam Oriented: Normal Eyes: Normal Ear: Normal Nose: Normal Throat: Normal Respiratory: Wheezes Cardiovascular: Normal, Edema : Normal GI:Auscultation: Normal GI:Palpation: Normal GI: Tenderness: Normal Skin: Rash, Red, Tender, Hot, Wound (DIFFUSE CIRCUMFERENTIAL erythema involving the whole RT LEG UP TO THE KNEE with streaks of erythema extending to the groin .), Other Musculoskeletal: Right, Leg, Swelling, Tender Psychiatric: Normal Speech Pattern: Clear, Appropriate - Laboratory and Diagnostics Result Diagrams: 12/04/17 04:26 12/04/17 04:26 Labs: 12/03/17 10:51 Leg - Right Gram Stain - Final 12/03/17 10:51 Leg - Right Wound Culture - Preliminary 12/01/17 05:45 Blood Blood Culture - Preliminary 12/01/17 05:33 Blood Blood Culture - Preliminary 11/30/17 13:44 Leg - Right Gram Stain - Final 11/30/17 13:44 Leg - Right Wound Culture - Final 11/30/17 14:13 Blood Blood Culture - Preliminary 11/30/17 14:07 Blood Blood Culture - Preliminary Laboratory WBC 10.7 X10^3/uL (3.6-10.0) H 12/04/17 04:26 RBC 3.93 X10^6/uL (4.7-6.0) L 12/04/17 04:26 Hgb 13.3 g/dL (13.5-18.0) L 12/04/17 04:26 Hct 38.2 % (42.0-54.0) L 12/04/17 04:26 MCV 97.4 fL (80.0-100.0) 12/04/17 04:26 MCH 33.8 pg (27.0-34.0) 12/04/17 04:26 MCHC 34.7 g/dL (33.0-35.0) 12/04/17 04:26 RDW 13.3 % (11.6-16.5) 12/04/17 04:26 Plt Count 241 X10^3/uL (150.0-450.0) 12/04/17 04:26 Plt Count Comment Adequate (ADEQUATE) 12/01/17 05:33 MPV 9.6 fL (7.4-11.0) 12/04/17 04:26 Neut % (Auto) 78.1 % (42.0-75.0) H 12/04/17 04:26 Lymph % (Auto) 9.9 % (21.0-51.0) L 12/04/17 04:26 [place] % (Auto) 7.7 % (0.0-13.0) 12/04/17 04:26 Eos % (Auto) 3.1 % (0.9-2.9) H 12/04/17 04:26 Baso % (Auto) 1.2 % (0.2-1.0) H 12/04/17 04:26 Neut # (Auto) 8.4 x10^3/uL (2.2-4.8) H 12/04/17 04:26 Lymph # (Auto) 1.1 X10^3/uL (1.3-2.9) L 12/04/17 04:26 [place] # (Auto) 0.8 x10^3/uL (0.3-0.8) 12/04/17 04:26 Eos # (Auto) 0.3 x10^3/uL (0.0-0.2) H 12/04/17 04:26 Baso # (Auto) 0.1 X10^3/uL (0.0-0.1) 12/04/17 04:26 Absolute Nucleated RBC 0.0 /100WBC 12/04/17 04:26 Total Counted 100 12/01/17 05:33 Neutrophils % (Manual) 82 % (39-76) H 12/01/17 05:33 Band Neutrophils % 6 % (0-10) 12/01/17 05:33 Lymphocytes % (Manual) 9 % (13-43) L 12/01/17 05:33 Monocytes % (Manual) 3 % (4-9) L 12/01/17 05:33 Plt Morphology Comment Normal (NORMAL) 12/01/17 05:33 RBC Morphology Normal (NORMAL) 12/01/17 05:33 D-Dimer 1990 ng/mL (0-400) H* 11/30/17 14:07 Sodium 138 mmol/L (136-145) 12/04/17 04:26 Corrected Sodium 139 mmol/L (136-145) 12/04/17 04:26 Potassium 3.2 mmol/L (3.5-5.1) L 12/04/17 04:26 Chloride 102 mmol/L (98-107) 12/04/17 04:26 Carbon Dioxide 28.7 mmol/L (21-32) 12/04/17 04:26 BUN 9 mg/dL (7-18) 12/04/17 04:26 Creatinine 1.03 mg/dL (0.70-1.30) 12/04/17 04:26 Est GFR (MDRD) Af Amer > 60 (>60) 12/04/17 04:26 Est GFR (MDRD) Non-Af > 60 (>60) 12/04/17 04:26 Glucose 135 mg/dL (65-99) H 12/04/17 04:26 Lactic Acid 1.4 mmol/L (0.4-2.0) 11/30/17 14:07 Calcium 8.5 mg/dL (8.5-10.1) 12/04/17 04:26 Corrected Calcium 10.0 mg/dL (8.5-10.1) 12/04/17 04:26 Magnesium 2.0 mg/dL (1.7-2.9) 12/03/17 05:28 Total Bilirubin 0.30 mg/dL (0.2-1.0) 12/04/17 04:26 AST 37 Units/L (15-37) 12/04/17 04:26 ALT 41 Units/L (12-78) 12/04/17 04:26 Alkaline Phosphatase 130 Units/L (46-116) H 12/04/17 04:26 C-Reactive Protein 290.00 mg/L (0-3.0) H 11/30/17 13:41 Total Protein 6.4 g/dL (6.4-8.2) 12/04/17 04:26 Albumin 2.1 g/dL (3.4-5.0) L 12/04/17 04:26 Globulin 4.3 g/dL (2.5-4.5) 12/04/17 04:26 Albumin/Globulin Ratio 0.5 Ratio (1.1-2.1) L 12/04/17 04:26 Vancomycin Trough 11.2 ug/mL (15-20) L 12/03/17 05:28 - Assessment and Plan 1: extensive cellulitis Rt leg up to the knee and medial thigh . no abscess formation or necrosis. no compartment syndrom. improving with IV ATB , local Silvadene ,leg elevation and DVT prophylaxis - Problem Patient Problems: Patient Problems Cellulitis of right lower leg (Acute) L03.115 Open wound of right lower extremity (Acute) S81.801A COPD (chronic obstructive pulmonary disease) (Acute) J44.9 Leg abscess (Acute) L02.419
[2017-12-04] MEDS ORDERED: NS 250 ML IV 250 ML IV ONE (13:26)
[2017-12-04 14:33] LABS: CREATININE 1.01 mg/dL (0.70-1.30); VANCOMYCIN,TROUGH 10.1 ug/mL (15-20)
--- NOTE | 2017-12-04 16:51 | PCM.PROG ---
Progress Note - Progress Note for Day of Date: 12/04/17 - Subjective Subjective: 62 WM ER ADMISSION ON 11/30 WITH RLE CELLULITIS. PT CO PAIN TO RLE, REDNESS ACCESSENDING UP INNER THIGH, WHICH HAS IMPROVED SLIGHTLY SINCE ADDING ZOSYN AND VANCOMYCIN IV. PLAN TO CONTINUE PAIN CONTROL, IV ATBX, CULTURES POSTIVE FOR STAPH. PT CO INCREASED PRESSURE AND SWELLING WHEN HE AMBULATED, INCREASED FLUID COLLECTION TO INSIDE RIGHT LOWER LEG POSSIBLE ABSCESS, DR COLBY CONSULTING, CONTINUE WOUND CARE, LOVENOX PROPHALAXIS - Past Medical Family Social History Past Med/Fam/Surg Hx: No changes since H&P Allergies: Allergies No Known Drug Allergies Allergy (Verified 11/30/17 12:36) - Review of Systems ROS: No change since H&P - Vital Signs and I&O's Vital Signs: Temperature 98.8 F Pulse Rate [Right Brachial] 98 Pulse Rate [Apical] 102 Pulse Rate [Bilateral Brachial 104 ] Pulse Rate 105 Respiratory Rate 18 Blood Pressure [Right Arm] 145/82 Blood Pressure [Left Arm] 157/73 Blood Pressure 122/86 O2 Sat by Pulse Oximetry 91 Intake and Output: Intake & Output 12/02/17 12/03/17 12/04/17 12/05/17 11:59 11:59 11:59 11:59 Intake Total 5490 / 5490 3980 / 3980 4375 / 4375 1400 / 1400 Balance 5490 / 5490 3980 / 3980 4375 / 4375 1400 / 1400 - Physical Exam Oriented: Normal Eyes: Normal Ear: Normal Nose: Normal Throat: Normal Respiratory: Wheezes Cardiovascular: Normal, Edema : Normal Auscultation: Bowel Sounds: Normal Tenderness: Normal Skin: Rash, Red, Tender, Hot, Wound (DIFFUSE CIRCUMFERENTIAL erythema involving the whole RT LEG UP TO THE KNEE with streaks of erythema extending to the groin .), Other Musculoskeletal: Right, Leg, Swelling, Tender Psychiatric: Normal Speech Pattern: Clear, Appropriate - Laboratory and Diagnostics Result Diagrams: 12/04/17 04:26 12/04/17 13:40 Labs: 12/03/17 10:51 Leg - Right Gram Stain - Final 12/03/17 10:51 Leg - Right Wound Culture - Preliminary 12/01/17 05:45 Blood Blood Culture - Preliminary 12/01/17 05:33 Blood Blood Culture - Preliminary 11/30/17 13:44 Leg - Right Gram Stain - Final 11/30/17 13:44 Leg - Right Wound Culture - Final 11/30/17 14:13 Blood Blood Culture - Preliminary 11/30/17 14:07 Blood Blood Culture - Preliminary Laboratory WBC 10.7 X10^3/uL (3.6-10.0) H 12/04/17 04:26 RBC 3.93 X10^6/uL (4.7-6.0) L 12/04/17 04:26 Hgb 13.3 g/dL (13.5-18.0) L 12/04/17 04:26 Hct 38.2 % (42.0-54.0) L 12/04/17 04:26 MCV 97.4 fL (80.0-100.0) 12/04/17 04:26 MCH 33.8 pg (27.0-34.0) 12/04/17 04:26 MCHC 34.7 g/dL (33.0-35.0) 12/04/17 04:26 RDW 13.3 % (11.6-16.5) 12/04/17 04:26 Plt Count 241 X10^3/uL (150.0-450.0) 12/04/17 04:26 Plt Count Comment Adequate (ADEQUATE) 12/01/17 05:33 MPV 9.6 fL (7.4-11.0) 12/04/17 04:26 Neut % (Auto) 78.1 % (42.0-75.0) H 12/04/17 04:26 Lymph % (Auto) 9.9 % (21.0-51.0) L 12/04/17 04:26 [place] % (Auto) 7.7 % (0.0-13.0) 12/04/17 04:26 Eos % (Auto) 3.1 % (0.9-2.9) H 12/04/17 04:26 Baso % (Auto) 1.2 % (0.2-1.0) H 12/04/17 04:26 Neut # (Auto) 8.4 x10^3/uL (2.2-4.8) H 12/04/17 04:26 Lymph # (Auto) 1.1 X10^3/uL (1.3-2.9) L 12/04/17 04:26 [place] # (Auto) 0.8 x10^3/uL (0.3-0.8) 12/04/17 04:26 Eos # (Auto) 0.3 x10^3/uL (0.0-0.2) H 12/04/17 04:26 Baso # (Auto) 0.1 X10^3/uL (0.0-0.1) 12/04/17 04:26 Absolute Nucleated RBC 0.0 /100WBC 12/04/17 04:26 Total Counted 100 12/01/17 05:33 Neutrophils % (Manual) 82 % (39-76) H 12/01/17 05:33 Band Neutrophils % 6 % (0-10) 12/01/17 05:33 Lymphocytes % (Manual) 9 % (13-43) L 12/01/17 05:33 Monocytes % (Manual) 3 % (4-9) L 12/01/17 05:33 Plt Morphology Comment Normal (NORMAL) 12/01/17 05:33 RBC Morphology Normal (NORMAL) 12/01/17 05:33 D-Dimer 1990 ng/mL (0-400) H* 11/30/17 14:07 Sodium 138 mmol/L (136-145) 12/04/17 04:26 Corrected Sodium 139 mmol/L (136-145) 12/04/17 04:26 Potassium 3.2 mmol/L (3.5-5.1) L 12/04/17 04:26 Chloride 102 mmol/L (98-107) 12/04/17 04:26 Carbon Dioxide 28.7 mmol/L (21-32) 12/04/17 04:26 BUN 9 mg/dL (7-18) 12/04/17 04:26 Creatinine 1.01 mg/dL (0.70-1.30) 12/04/17 13:40 Est GFR (MDRD) Af Amer > 60 (>60) 12/04/17 04:26 Est GFR (MDRD) Non-Af > 60 (>60) 12/04/17 04:26 Glucose 135 mg/dL (65-99) H 12/04/17 04:26 Lactic Acid 1.4 mmol/L (0.4-2.0) 11/30/17 14:07 Calcium 8.5 mg/dL (8.5-10.1) 12/04/17 04:26 Corrected Calcium 10.0 mg/dL (8.5-10.1) 12/04/17 04:26 Magnesium 2.0 mg/dL (1.7-2.9) 12/03/17 05:28 Total Bilirubin 0.30 mg/dL (0.2-1.0) 12/04/17 04:26 AST 37 Units/L (15-37) 12/04/17 04:26 ALT 41 Units/L (12-78) 12/04/17 04:26 Alkaline Phosphatase 130 Units/L (46-116) H 12/04/17 04:26 C-Reactive Protein 290.00 mg/L (0-3.0) H 11/30/17 13:41 Total Protein 6.4 g/dL (6.4-8.2) 12/04/17 04:26 Albumin 2.1 g/dL (3.4-5.0) L 12/04/17 04:26 Globulin 4.3 g/dL (2.5-4.5) 12/04/17 04:26 Albumin/Globulin Ratio 0.5 Ratio (1.1-2.1) L 12/04/17 04:26 Vancomycin Trough 10.1 ug/mL (15-20) L 12/04/17 13:40 - Plan (1) Cellulitis of right lower leg Status: Acute Plan: IV ANTIBIOTICS, BLOOD AND WOUND CULTURES. BP MONITORING, COPD RESP CONSULT. REPEAT AM LABS, VERIFY HOME MEDS. PAIN CONTROL (2) Open wound of right lower extremity Status: Acute (3) COPD (chronic obstructive pulmonary disease) Status: Acute (4) Leg abscess Status: Acute Plan: RLE CELLULITIS WITH POSSIBLE ABSCESS FORMATION, CONSULT SURGEON
[2017-12-04] MEDS: COLACE CAP 100 MG PO SCH ×2 (21:05→21:15)
[2017-12-04] MEDS ORDERED: VANCOMYCIN HCL 500 MG VIAL ONE (21:08)
[2017-12-04] MEDS: VANCOMYCIN HCL 1 GM VIAL 1 G in D5W 250 ML IV 250 ML IV SCH (21:14)
[2017-12-05] MEDS ORDERED: NS 500 ML IV 500 ML IV ONE (00:08)
[2017-12-05] MEDS: VANCOMYCIN HCL 1 GM VIAL 1 G in D5W 250 ML IV 250 ML IV SCH ×3 (05:16→21:36)
[2017-12-05] MEDS: ZOSYN VIAL 4.5 GRAMS 4.5 G in NS 100 ML IV + SPIKE MINIBAG* 100 ML IV SCH ×3 (05:18→22:47)
[2017-12-05 06:00] LABS: BASOPHILS # (AUTO) 0.1 X10^3/uL (0.0-0.1); BASOPHILS % (AUTO) 0.7 % (0.2-1.0); EOSINOPHILS # (AUTO) 0.4 x10^3/uL (0.0-0.2); EOSINOPHILS % (AUTO) 3.7 % (0.9-2.9); HEMATOCRIT 38.5 % (42.0-54.0); LYMPHOCYTES # (AUTO) 0.8 X10^3/uL (1.3-2.9); LYMPHOCYTES % (AUTO) 8.6 % (21.0-51.0); MEAN CORPUSCULAR HEMOGLOBIN 33.2 pg (27.0-34.0); MEAN CORPUSCULAR HGB CONC 33.8 g/dL (33.0-35.0); MEAN CORPUSCULAR VOLUME 98.4 fL (80.0-100.0); MEAN PLATELET VOLUME 8.8 fL (7.4-11.0); MONOCYTES # (AUTO) 0.8 x10^3/uL (0.3-0.8); MONOCYTES % (AUTO) 8.4 % (0.0-13.0); NEUTROPHILS # (AUTO) 7.6 x10^3/uL (2.2-4.8); NEUTROPHILS % (AUTO) 78.6 % (42.0-75.0); PLATELET COUNT 309 X10^3/uL (150.0-450.0); RED BLOOD COUNT 3.91 X10^6/uL (4.7-6.0); RED CELL DISTRIBUTION WIDTH 13.3 % (11.6-16.5); WHITE BLOOD COUNT 9.6 X10^3/uL (3.6-10.0)
[2017-12-05 06:08] LABS: ALANINE AMINOTRANSFERASE 38 Units/L (12-78); ALBUMIN 2.1 g/dL (3.4-5.0); ALKALINE PHOSPHATASE 110 Units/L (46-116); ASPARTATE AMINO TRANSFERASE 33 Units/L (15-37); BLOOD UREA NITROGEN 6 mg/dL (7-18); CALCIUM 8.3 mg/dL (8.5-10.1); CARBON DIOXIDE 28.5 mmol/L (21-32); CHLORIDE 105 mmol/L (98-107); COR CA(FOR HYPOALB) 9.8 mg/dL (8.5-10.1); COR NA(FOR HYPERGLY) 142 mmol/L (136-145); CREATININE 1.02 mg/dL (0.70-1.30); SODIUM 141 mmol/L (136-145); TOTAL PROTEIN 6.3 g/dL (6.4-8.2); eGFR NON BLACK RACES > 60 (>60)
[2017-12-05] MEDS: DUONEB 0.5 MG/3 MG NEB SCH ×4 (07:40→21:45)
[2017-12-05] MEDS ORDERED: K-LYTE EFFERVESCENT PO ONE (08:59)
[2017-12-05] MEDS: SILVADENE TOP SCH ×2 (09:13→20:23)
[2017-12-05] MEDS: LOVENOX INJ 40 MG SYR SC SCH (09:14)
[2017-12-05] MEDS: NS 1000 ML 1,000 ML IV SCH ×3 (09:15→18:51)
--- NOTE | 2017-12-05 13:25 | DR.PROGNOT ---
Hospital Progress Notes - Progress Note for Day of: Progress Note Date: 12/05/17 - Chief Complaint Chief Complaint: feels the same today , large amount of serous drainage with less pain and pressure .. all cultures are negative so far . Vancomycin level 11.2 with normal renal function . afebrile - Past Medical Family Social History Past Med/Fam/Surg Hx: No changes since H&P Allergies: Allergies No Known Drug Allergies Allergy (Verified 11/30/17 12:36) - Review Of Systems ROS: No change since H&P - Vital Signs Vital Signs: Temperature 98.5 F Pulse Rate [Right Brachial] 106 Pulse Rate [Apical] 102 Pulse Rate [Bilateral Brachial 104 ] Pulse Rate 102 Respiratory Rate 20 Blood Pressure [Right Arm] 134/71 Blood Pressure [Left Arm] 157/73 Blood Pressure 122/86 O2 Sat by Pulse Oximetry 94 - Physical Exam Oriented: Normal Eyes: Normal Ear: Normal Nose: Normal Throat: Normal Respiratory: Wheezes Cardiovascular: Normal, Edema : Normal GI:Auscultation: Normal GI:Palpation: Normal GI: Tenderness: Normal Skin: Rash, Red, Tender, Hot, Wound (DIFFUSE CIRCUMFERENTIAL erythema involving the whole RT LEG UP TO THE KNEE with streaks of erythema extending to the groin .), Other Musculoskeletal: Right, Leg, Swelling, Tender Psychiatric: Normal Speech Pattern: Clear, Appropriate - Laboratory and Diagnostics Result Diagrams: 12/05/17 05:25 12/05/17 05:25 Labs: 12/05/17 11:52 Foot - Right Gram Stain - Final 12/03/17 10:51 Leg - Right Gram Stain - Final 12/03/17 10:51 Leg - Right Wound Culture - Preliminary 12/04/17 23:26 Sputum - Expectorated Sputum - Final 12/01/17 05:45 Blood Blood Culture - Preliminary 12/01/17 05:33 Blood Blood Culture - Preliminary 11/30/17 13:44 Leg - Right Gram Stain - Final 11/30/17 13:44 Leg - Right Wound Culture - Final 11/30/17 14:13 Blood Blood Culture - Preliminary 11/30/17 14:07 Blood Blood Culture - Preliminary Laboratory WBC 9.6 X10^3/uL (3.6-10.0) 12/05/17 05:25 RBC 3.91 X10^6/uL (4.7-6.0) L 12/05/17 05:25 Hgb 13.0 g/dL (13.5-18.0) L 12/05/17 05:25 Hct 38.5 % (42.0-54.0) L 12/05/17 05:25 MCV 98.4 fL (80.0-100.0) 12/05/17 05:25 MCH 33.2 pg (27.0-34.0) 12/05/17 05:25 MCHC 33.8 g/dL (33.0-35.0) 12/05/17 05:25 RDW 13.3 % (11.6-16.5) 12/05/17 05:25 Plt Count 309 X10^3/uL (150.0-450.0) 12/05/17 05:25 Plt Count Comment Adequate (ADEQUATE) 12/01/17 05:33 MPV 8.8 fL (7.4-11.0) 12/05/17 05:25 Neut % (Auto) 78.6 % (42.0-75.0) H 12/05/17 05:25 Lymph % (Auto) 8.6 % (21.0-51.0) L 12/05/17 05:25 [place] % (Auto) 8.4 % (0.0-13.0) 12/05/17 05:25 Eos % (Auto) 3.7 % (0.9-2.9) H 12/05/17 05:25 Baso % (Auto) 0.7 % (0.2-1.0) 12/05/17 05:25 Neut # (Auto) 7.6 x10^3/uL (2.2-4.8) H 12/05/17 05:25 Lymph # (Auto) 0.8 X10^3/uL (1.3-2.9) L 12/05/17 05:25 [place] # (Auto) 0.8 x10^3/uL (0.3-0.8) 12/05/17 05:25 Eos # (Auto) 0.4 x10^3/uL (0.0-0.2) H 12/05/17 05:25 Baso # (Auto) 0.1 X10^3/uL (0.0-0.1) 12/05/17 05:25 Absolute Nucleated RBC 0.0 /100WBC 12/05/17 05:25 Total Counted 100 12/01/17 05:33 Neutrophils % (Manual) 82 % (39-76) H 12/01/17 05:33 Band Neutrophils % 6 % (0-10) 12/01/17 05:33 Lymphocytes % (Manual) 9 % (13-43) L 12/01/17 05:33 Monocytes % (Manual) 3 % (4-9) L 12/01/17 05:33 Plt Morphology Comment Normal (NORMAL) 12/01/17 05:33 RBC Morphology Normal (NORMAL) 12/01/17 05:33 D-Dimer 1990 ng/mL (0-400) H* 11/30/17 14:07 Sodium 141 mmol/L (136-145) 12/05/17 05:25 Corrected Sodium 142 mmol/L (136-145) 12/05/17 05:25 Potassium 3.1 mmol/L (3.5-5.1) L 12/05/17 05:25 Chloride 105 mmol/L (98-107) 12/05/17 05:25 Carbon Dioxide 28.5 mmol/L (21-32) 12/05/17 05:25 BUN 6 mg/dL (7-18) L 12/05/17 05:25 Creatinine 1.02 mg/dL (0.70-1.30) 12/05/17 05:25 Est GFR (MDRD) Af Amer > 60 (>60) 12/05/17 05:25 Est GFR (MDRD) Non-Af > 60 (>60) 12/05/17 05:25 Glucose 131 mg/dL (65-99) H 12/05/17 05:25 Lactic Acid 1.4 mmol/L (0.4-2.0) 11/30/17 14:07 Calcium 8.3 mg/dL (8.5-10.1) L 12/05/17 05:25 Corrected Calcium 9.8 mg/dL (8.5-10.1) 12/05/17 05:25 Magnesium 2.0 mg/dL (1.7-2.9) 12/05/17 05:25 Total Bilirubin 0.60 mg/dL (0.2-1.0) 12/05/17 05:25 AST 33 Units/L (15-37) 12/05/17 05:25 ALT 38 Units/L (12-78) 12/05/17 05:25 Alkaline Phosphatase 110 Units/L (46-116) 12/05/17 05:25 C-Reactive Protein 290.00 mg/L (0-3.0) H 11/30/17 13:41 Total Protein 6.3 g/dL (6.4-8.2) L 12/05/17 05:25 Albumin 2.1 g/dL (3.4-5.0) L 12/05/17 05:25 Globulin 4.2 g/dL (2.5-4.5) 12/05/17 05:25 Albumin/Globulin Ratio 0.5 Ratio (1.1-2.1) L 12/05/17 05:25 Vancomycin Trough 10.1 ug/mL (15-20) L 12/04/17 13:40 - Assessment and Plan 1: extensive cellulitis Rt leg up to the knee and medial thigh . no abscess formation or necrosis. no compartment syndrom. improving with IV ATB , local Silvadene ,leg elevation and DVT prophylaxis - Problem Patient Problems: Patient Problems Cellulitis of right lower leg (Acute) L03.115 Open wound of right lower extremity (Acute) S81.801A COPD (chronic obstructive pulmonary disease) (Acute) J44.9 Leg abscess (Acute) L02.419
[2017-12-05] MEDS: COLACE CAP 100 MG PO SCH (20:23)
[2017-12-05 21:34] LABS: CREATININE 1.07 mg/dL (0.70-1.30); VANCOMYCIN,TROUGH 14.4 ug/mL (15-20)
[2017-12-06] MEDS: NS 1000 ML 1,000 ML IV SCH ×3 (04:15→21:21)
[2017-12-06] MEDS: VANCOMYCIN HCL 1 GM VIAL 1 G in D5W 250 ML IV 250 ML IV SCH ×3 (05:12→21:49)
[2017-12-06 06:07] LABS: BASOPHILS # (AUTO) 0.1 X10^3/uL (0.0-0.1); EOSINOPHILS # (AUTO) 0.4 x10^3/uL (0.0-0.2); EOSINOPHILS % (AUTO) 5.4 % (0.9-2.9); HEMATOCRIT 36.6 % (42.0-54.0); HEMOGLOBIN 12.6 g/dL (13.5-18.0); LYMPHOCYTES # (AUTO) 1.1 X10^3/uL (1.3-2.9); LYMPHOCYTES % (AUTO) 13.6 % (21.0-51.0); MEAN CORPUSCULAR HEMOGLOBIN 33.8 pg (27.0-34.0); MEAN CORPUSCULAR HGB CONC 34.5 g/dL (33.0-35.0); MEAN PLATELET VOLUME 8.8 fL (7.4-11.0); MONOCYTES # (AUTO) 0.7 x10^3/uL (0.3-0.8); MONOCYTES % (AUTO) 8.4 % (0.0-13.0); NEUTROPHILS # (AUTO) 5.8 x10^3/uL (2.2-4.8); NEUTROPHILS % (AUTO) 71.6 % (42.0-75.0); PLATELET COUNT 327 X10^3/uL (150.0-450.0); RED BLOOD COUNT 3.73 X10^6/uL (4.7-6.0); RED CELL DISTRIBUTION WIDTH 13.4 % (11.6-16.5); WHITE BLOOD COUNT 8.1 X10^3/uL (3.6-10.0)
[2017-12-06 06:35] LABS: ALANINE AMINOTRANSFERASE 40 Units/L (12-78); ALKALINE PHOSPHATASE 104 Units/L (46-116); ASPARTATE AMINO TRANSFERASE 39 Units/L (15-37); BLOOD UREA NITROGEN 5 mg/dL (7-18); CALCIUM 8.4 mg/dL (8.5-10.1); CARBON DIOXIDE 28.3 mmol/L (21-32); CHLORIDE 106 mmol/L (98-107); COR NA(FOR HYPERGLY) 143 mmol/L (136-145); CREATININE 1.02 mg/dL (0.70-1.30); SODIUM 142 mmol/L (136-145); TOTAL PROTEIN 6.3 g/dL (6.4-8.2); eGFR NON BLACK RACES > 60 (>60)
[2017-12-06] MEDS: ZOSYN VIAL 4.5 GRAMS 4.5 G in NS 100 ML IV + SPIKE MINIBAG* 100 ML IV SCH ×3 (06:45→21:20)
[2017-12-06] MEDS ORDERED: K-LYTE EFFERVESCENT PO ONE ×2 (08:19→09:00)
[2017-12-06] MEDS: LOVENOX INJ 40 MG SYR SC SCH (08:28)
[2017-12-06] MEDS: NORCO 10/325 TAB PO PRN ×3 (08:30→17:37)
[2017-12-06] MEDS: SILVADENE TOP SCH ×2 (08:59→21:21)
[2017-12-06] MEDS: DUONEB 0.5 MG/3 MG NEB SCH ×4 (09:30→20:54)
[2017-12-06] MEDS: POTASSIUM CHL 40 MEQ/NS 0.45% 500 ML IV PRN (17:35)
[2017-12-06] MEDS: COLACE CAP 100 MG PO SCH (21:21)
[2017-12-06 21:43] LABS: CREATININE 1.1 mg/dL (0.70-1.30); VANCOMYCIN,TROUGH 19.4 ug/mL (15-20)
[2017-12-06] MEDS: TORADOL 30 MG VIAL IVP PRN (23:49)
[2017-12-07] MEDS: NS 1000 ML 1,000 ML IV SCH ×4 (04:43→18:51)
[2017-12-07] MEDS: VANCOMYCIN HCL 1 GM VIAL 1 G in D5W 250 ML IV 250 ML IV SCH ×3 (06:15→21:09)
[2017-12-07] MEDS: ZOSYN VIAL 4.5 GRAMS 4.5 G in NS 100 ML IV + SPIKE MINIBAG* 100 ML IV SCH ×3 (06:15→21:45)
[2017-12-07 06:46] LABS: BASOPHILS # (AUTO) 0.1 X10^3/uL (0.0-0.1); BASOPHILS % (AUTO) 0.9 % (0.2-1.0); EOSINOPHILS # (AUTO) 0.4 x10^3/uL (0.0-0.2); EOSINOPHILS % (AUTO) 4.6 % (0.9-2.9); HEMATOCRIT 37.8 % (42.0-54.0); HEMOGLOBIN 12.9 g/dL (13.5-18.0); LYMPHOCYTES % (AUTO) 12.5 % (21.0-51.0); MEAN CORPUSCULAR HEMOGLOBIN 33.8 pg (27.0-34.0); MEAN CORPUSCULAR HGB CONC 34.1 g/dL (33.0-35.0); MEAN PLATELET VOLUME 8.5 fL (7.4-11.0); MONOCYTES # (AUTO) 0.7 x10^3/uL (0.3-0.8); MONOCYTES % (AUTO) 8.5 % (0.0-13.0); NEUTROPHILS # (AUTO) 5.7 x10^3/uL (2.2-4.8); NEUTROPHILS % (AUTO) 73.5 % (42.0-75.0); PLATELET COUNT 353 X10^3/uL (150.0-450.0); RED BLOOD COUNT 3.82 X10^6/uL (4.7-6.0); RED CELL DISTRIBUTION WIDTH 13.3 % (11.6-16.5); WHITE BLOOD COUNT 7.7 X10^3/uL (3.6-10.0)
[2017-12-07 07:02] LABS: ALANINE AMINOTRANSFERASE 37 Units/L (12-78); ALKALINE PHOSPHATASE 98 Units/L (46-116); ASPARTATE AMINO TRANSFERASE 31 Units/L (15-37); BLOOD UREA NITROGEN 5 mg/dL (7-18); CALCIUM 8.3 mg/dL (8.5-10.1); CARBON DIOXIDE 28.6 mmol/L (21-32); CHLORIDE 104 mmol/L (98-107); COR CA(FOR HYPOALB) 9.9 mg/dL (8.5-10.1); COR NA(FOR HYPERGLY) 140 mmol/L (136-145); CREATININE 1.12 mg/dL (0.70-1.30); SODIUM 139 mmol/L (136-145); TOTAL PROTEIN 6.5 g/dL (6.4-8.2); eGFR NON BLACK RACES > 60 (>60)
[2017-12-07] MEDS: DUONEB 0.5 MG/3 MG NEB SCH ×4 (08:42→20:30)
[2017-12-07] MEDS: LOVENOX INJ 40 MG SYR SC SCH (08:51)
[2017-12-07] MEDS: NORCO 10/325 TAB PO PRN ×2 (08:54→14:12)
[2017-12-07] MEDS: SILVADENE TOP SCH ×2 (09:13→21:09)
--- NOTE | 2017-12-07 19:14 | PCM.PROG ---
Progress Note - Progress Note for Day of Date: 12/07/17 - Subjective Subjective: 62 WM ER ADMISSION ON 11/30 WITH RLE CELLULITIS. PT CO PAIN TO RLE WITH ERYTHEMA AND EDEMA. PLAN TO CONTINUE PAIN CONTROL, IV ATBX, CULTURES POSTIVE FOR STAPH. REPEAT WOUND CULTURES ARE PENDING. PT CO INCREASED PRESSURE AND SWELLING WHEN HE AMBULATED, INCREASED FLUID COLLECTION TO INSIDE RIGHT LOWER LEG. VITALS TODAY ARE 98.6-102-20-93%-163/65. WBC NORMAL. POTASSIUM 3.2, OTHERWISE, HE IS HEMODYNAMICALLY STABLE. WE WILL CONTINUE WOUND CARE, IV ANTIBIOTICS, AND LOVENOX PROPHALAXIS TODAY. WE WILL REPLACE POTASSIUM. OTHERWISE , WE WILL FOLLOW UP WITH AM LABS AND CONTINUE TO MONITOR PATIENT. - Past Medical Family Social History Past Med/Fam/Surg Hx: No changes since H&P Allergies: Allergies No Known Drug Allergies Allergy (Verified 11/30/17 12:36) - Review of Systems ROS: No change since H&P - Vital Signs and I&O's Vital Signs: Temperature 98.4 F Pulse Rate [Right Brachial] 97 Pulse Rate [Apical] 102 Pulse Rate [Bilateral Brachial 104 ] Pulse Rate 97 Respiratory Rate 20 Blood Pressure [Right Arm] 135/77 Blood Pressure [Left Arm] 157/73 Blood Pressure 122/86 O2 Sat by Pulse Oximetry 93 Intake and Output: Intake & Output 12/05/17 12/06/17 12/07/17 12/08/17 11:59 11:59 11:59 11:59 Intake Total 3640 / 3640 6010 / 6010 3430 / 3430 800 / 800 Balance 3640 / 3640 6010 / 6010 3430 / 3430 800 / 800 - Physical Exam Oriented: Normal Eyes: Normal Ear: Normal Nose: Normal Throat: Normal Respiratory: Wheezes Cardiovascular: Normal, Edema : Normal Auscultation: Bowel Sounds: Normal Palpation: Normal Tenderness: Normal Skin: Rash, Red, Tender, Hot, Wound (DIFFUSE CIRCUMFERENTIAL erythema involving the whole RT LEG UP TO THE KNEE with streaks of erythema extending to the groin .), Other Musculoskeletal: Right, Leg, Swelling, Tender Psychiatric: Normal Speech Pattern: Clear, Appropriate - Laboratory and Diagnostics Result Diagrams: 12/07/17 06:31 12/07/17 06:31 Labs: 12/03/17 10:51 Leg - Right Gram Stain - Final 12/03/17 10:51 Leg - Right Wound Culture - Preliminary 12/04/17 23:26 Sputum - Expectorated Sputum Sputum Culture - Final 12/04/17 23:26 Sputum - Expectorated Sputum - Final 12/05/17 11:52 Foot - Right Gram Stain - Final 12/05/17 11:52 Foot - Right Wound Culture - Preliminary 12/01/17 05:45 Blood Blood Culture - Final 12/01/17 05:33 Blood Blood Culture - Final 11/30/17 14:13 Blood Blood Culture - Final 11/30/17 14:07 Blood Blood Culture - Final 11/30/17 13:44 Leg - Right Gram Stain - Final 11/30/17 13:44 Leg - Right Wound Culture - Final Laboratory WBC 7.7 X10^3/uL (3.6-10.0) 12/07/17 06:31 RBC 3.82 X10^6/uL (4.7-6.0) L 12/07/17 06:31 Hgb 12.9 g/dL (13.5-18.0) L 12/07/17 06:31 Hct 37.8 % (42.0-54.0) L 12/07/17 06:31 MCV 99.0 fL (80.0-100.0) 12/07/17 06:31 MCH 33.8 pg (27.0-34.0) 12/07/17 06:31 MCHC 34.1 g/dL (33.0-35.0) 12/07/17 06:31 RDW 13.3 % (11.6-16.5) 12/07/17 06:31 Plt Count 353 X10^3/uL (150.0-450.0) 12/07/17 06:31 Plt Count Comment Adequate (ADEQUATE) 12/01/17 05:33 MPV 8.5 fL (7.4-11.0) 12/07/17 06:31 Neut % (Auto) 73.5 % (42.0-75.0) 12/07/17 06:31 Lymph % (Auto) 12.5 % (21.0-51.0) L 12/07/17 06:31 [place] % (Auto) 8.5 % (0.0-13.0) 12/07/17 06:31 Eos % (Auto) 4.6 % (0.9-2.9) H 12/07/17 06:31 Baso % (Auto) 0.9 % (0.2-1.0) 12/07/17 06:31 Neut # (Auto) 5.7 x10^3/uL (2.2-4.8) H 12/07/17 06:31 Lymph # (Auto) 1.0 X10^3/uL (1.3-2.9) L 12/07/17 06:31 [place] # (Auto) 0.7 x10^3/uL (0.3-0.8) 12/07/17 06:31 Eos # (Auto) 0.4 x10^3/uL (0.0-0.2) H 12/07/17 06:31 Baso # (Auto) 0.1 X10^3/uL (0.0-0.1) 12/07/17 06:31 Absolute Nucleated RBC 0.0 /100WBC 12/07/17 06:31 Total Counted 100 12/01/17 05:33 Neutrophils % (Manual) 82 % (39-76) H 12/01/17 05:33 Band Neutrophils % 6 % (0-10) 12/01/17 05:33 Lymphocytes % (Manual) 9 % (13-43) L 12/01/17 05:33 Monocytes % (Manual) 3 % (4-9) L 12/01/17 05:33 Plt Morphology Comment Normal (NORMAL) 12/01/17 05:33 RBC Morphology Normal (NORMAL) 12/01/17 05:33 D-Dimer 1990 ng/mL (0-400) H* 11/30/17 14:07 Sodium 139 mmol/L (136-145) 12/07/17 06:31 Corrected Sodium 140 mmol/L (136-145) 12/07/17 06:31 Potassium 3.6 mmol/L (3.5-5.1) 12/07/17 06:31 Chloride 104 mmol/L (98-107) 12/07/17 06:31 Carbon Dioxide 28.6 mmol/L (21-32) 12/07/17 06:31 BUN 5 mg/dL (7-18) L 12/07/17 06:31 Creatinine 1.12 mg/dL (0.70-1.30) 12/07/17 06:31 Est GFR (MDRD) Af Amer > 60 (>60) 12/07/17 06:31 Est GFR (MDRD) Non-Af > 60 (>60) 12/07/17 06:31 Glucose 144 mg/dL (65-99) H 12/07/17 06:31 Lactic Acid 1.4 mmol/L (0.4-2.0) 11/30/17 14:07 Calcium 8.3 mg/dL (8.5-10.1) L 12/07/17 06:31 Corrected Calcium 9.9 mg/dL (8.5-10.1) 12/07/17 06:31 Magnesium 2.2 mg/dL (1.7-2.9) 12/06/17 17:35 Total Bilirubin 0.30 mg/dL (0.2-1.0) 12/07/17 06:31 AST 31 Units/L (15-37) 12/07/17 06:31 ALT 37 Units/L (12-78) 12/07/17 06:31 Alkaline Phosphatase 98 Units/L (46-116) 12/07/17 06:31 C-Reactive Protein 290.00 mg/L (0-3.0) H 11/30/17 13:41 Total Protein 6.5 g/dL (6.4-8.2) 12/07/17 06:31 Albumin 2.0 g/dL (3.4-5.0) L 12/07/17 06:31 Globulin 4.5 g/dL (2.5-4.5) 12/07/17 06:31 Albumin/Globulin Ratio 0.4 Ratio (1.1-2.1) L 12/07/17 06:31 Vancomycin Trough 19.4 ug/mL (15-20) 12/06/17 20:57
--- NOTE | 2017-12-07 19:17 | PCM.PROG ---
Progress Note - Progress Note for Day of Date: 12/07/17 - Subjective Subjective: 62 WM ER ADMISSION ON 11/30 WITH RLE CELLULITIS. PT CO PAIN TO RLE WITH ERYTHEMA AND EDEMA. WOUND CULTURES POSTIVE FOR STAPH. REPEAT WOUND CULTURES ARE PENDING. PT CO INCREASED PRESSURE AND SWELLING WHEN HE AMBULATED, INCREASED FLUID COLLECTION TO INSIDE RIGHT LOWER LEG. VITALS TODAY ARE 98.8-87- 20-90%RA-147/72. WBC NORMAL. HE IS HEMODYNAMICALLY STABLE TODAY. WE WILL CONTINUE WOUND CARE, IV ANTIBIOTICS, AND LOVENOX PROPHALAXIS TODAY. OTHERWISE, WE WILL FOLLOW UP WITH AM LABS AND CONTINUE TO MONITOR PATIENT. - Past Medical Family Social History Past Med/Fam/Surg Hx: No changes since H&P Allergies: Allergies No Known Drug Allergies Allergy (Verified 11/30/17 12:36) - Review of Systems ROS: No change since H&P - Vital Signs and I&O's Vital Signs: Temperature 98.4 F Pulse Rate [Right Brachial] 97 Pulse Rate [Apical] 102 Pulse Rate [Bilateral Brachial 104 ] Pulse Rate 97 Respiratory Rate 20 Blood Pressure [Right Arm] 135/77 Blood Pressure [Left Arm] 157/73 Blood Pressure 122/86 O2 Sat by Pulse Oximetry 93 Intake and Output: Intake & Output 12/05/17 12/06/17 12/07/17 12/08/17 11:59 11:59 11:59 11:59 Intake Total 3640 / 3640 6010 / 6010 3430 / 3430 800 / 800 Balance 3640 / 3640 6010 / 6010 3430 / 3430 800 / 800 - Physical Exam Oriented: Normal Eyes: Normal Ear: Normal Nose: Normal Throat: Normal Respiratory: Wheezes Cardiovascular: Normal, Edema : Normal Auscultation: Bowel Sounds: Normal Tenderness: Normal Skin: Rash, Red, Tender, Hot, Wound (DIFFUSE CIRCUMFERENTIAL erythema involving the whole RT LEG UP TO THE KNEE with streaks of erythema extending to the groin .), Other Musculoskeletal: Right, Leg, Swelling, Tender Psychiatric: Normal Speech Pattern: Clear, Appropriate - Laboratory and Diagnostics Result Diagrams: 12/07/17 06:31 12/07/17 06:31 Labs: 12/03/17 10:51 Leg - Right Gram Stain - Final 12/03/17 10:51 Leg - Right Wound Culture - Preliminary 12/04/17 23:26 Sputum - Expectorated Sputum Sputum Culture - Final 12/04/17 23:26 Sputum - Expectorated Sputum - Final 12/05/17 11:52 Foot - Right Gram Stain - Final 12/05/17 11:52 Foot - Right Wound Culture - Preliminary 12/01/17 05:45 Blood Blood Culture - Final 12/01/17 05:33 Blood Blood Culture - Final 11/30/17 14:13 Blood Blood Culture - Final 11/30/17 14:07 Blood Blood Culture - Final 11/30/17 13:44 Leg - Right Gram Stain - Final 11/30/17 13:44 Leg - Right Wound Culture - Final Laboratory WBC 7.7 X10^3/uL (3.6-10.0) 12/07/17 06:31 RBC 3.82 X10^6/uL (4.7-6.0) L 12/07/17 06:31 Hgb 12.9 g/dL (13.5-18.0) L 12/07/17 06:31 Hct 37.8 % (42.0-54.0) L 12/07/17 06:31 MCV 99.0 fL (80.0-100.0) 12/07/17 06:31 MCH 33.8 pg (27.0-34.0) 12/07/17 06:31 MCHC 34.1 g/dL (33.0-35.0) 12/07/17 06:31 RDW 13.3 % (11.6-16.5) 12/07/17 06:31 Plt Count 353 X10^3/uL (150.0-450.0) 12/07/17 06:31 Plt Count Comment Adequate (ADEQUATE) 12/01/17 05:33 MPV 8.5 fL (7.4-11.0) 12/07/17 06:31 Neut % (Auto) 73.5 % (42.0-75.0) 12/07/17 06:31 Lymph % (Auto) 12.5 % (21.0-51.0) L 12/07/17 06:31 [place] % (Auto) 8.5 % (0.0-13.0) 12/07/17 06:31 Eos % (Auto) 4.6 % (0.9-2.9) H 12/07/17 06:31 Baso % (Auto) 0.9 % (0.2-1.0) 12/07/17 06:31 Neut # (Auto) 5.7 x10^3/uL (2.2-4.8) H 12/07/17 06:31 Lymph # (Auto) 1.0 X10^3/uL (1.3-2.9) L 12/07/17 06:31 [place] # (Auto) 0.7 x10^3/uL (0.3-0.8) 12/07/17 06:31 Eos # (Auto) 0.4 x10^3/uL (0.0-0.2) H 12/07/17 06:31 Baso # (Auto) 0.1 X10^3/uL (0.0-0.1) 12/07/17 06:31 Absolute Nucleated RBC 0.0 /100WBC 12/07/17 06:31 Total Counted 100 12/01/17 05:33 Neutrophils % (Manual) 82 % (39-76) H 12/01/17 05:33 Band Neutrophils % 6 % (0-10) 12/01/17 05:33 Lymphocytes % (Manual) 9 % (13-43) L 12/01/17 05:33 Monocytes % (Manual) 3 % (4-9) L 12/01/17 05:33 Plt Morphology Comment Normal (NORMAL) 12/01/17 05:33 RBC Morphology Normal (NORMAL) 12/01/17 05:33 D-Dimer 1990 ng/mL (0-400) H* 11/30/17 14:07 Sodium 139 mmol/L (136-145) 12/07/17 06:31 Corrected Sodium 140 mmol/L (136-145) 12/07/17 06:31 Potassium 3.6 mmol/L (3.5-5.1) 12/07/17 06:31 Chloride 104 mmol/L (98-107) 12/07/17 06:31 Carbon Dioxide 28.6 mmol/L (21-32) 12/07/17 06:31 BUN 5 mg/dL (7-18) L 12/07/17 06:31 Creatinine 1.12 mg/dL (0.70-1.30) 12/07/17 06:31 Est GFR (MDRD) Af Amer > 60 (>60) 12/07/17 06:31 Est GFR (MDRD) Non-Af > 60 (>60) 12/07/17 06:31 Glucose 144 mg/dL (65-99) H 12/07/17 06:31 Lactic Acid 1.4 mmol/L (0.4-2.0) 11/30/17 14:07 Calcium 8.3 mg/dL (8.5-10.1) L 12/07/17 06:31 Corrected Calcium 9.9 mg/dL (8.5-10.1) 12/07/17 06:31 Magnesium 2.2 mg/dL (1.7-2.9) 12/06/17 17:35 Total Bilirubin 0.30 mg/dL (0.2-1.0) 12/07/17 06:31 AST 31 Units/L (15-37) 12/07/17 06:31 ALT 37 Units/L (12-78) 12/07/17 06:31 Alkaline Phosphatase 98 Units/L (46-116) 12/07/17 06:31 C-Reactive Protein 290.00 mg/L (0-3.0) H 11/30/17 13:41 Total Protein 6.5 g/dL (6.4-8.2) 12/07/17 06:31 Albumin 2.0 g/dL (3.4-5.0) L 12/07/17 06:31 Globulin 4.5 g/dL (2.5-4.5) 12/07/17 06:31 Albumin/Globulin Ratio 0.4 Ratio (1.1-2.1) L 12/07/17 06:31 Vancomycin Trough 19.4 ug/mL (15-20) 12/06/17 20:57
[2017-12-07] MEDS: COLACE CAP 100 MG PO SCH (20:33)
[2017-12-08] MEDS: NS 1000 ML 1,000 ML IV SCH ×4 (01:42→19:30)
[2017-12-08 06:29] LABS: BASOPHILS % (AUTO) 0.4 % (0.2-1.0); EOSINOPHILS # (AUTO) 0.4 x10^3/uL (0.0-0.2); EOSINOPHILS % (AUTO) 3.8 % (0.9-2.9); HEMATOCRIT 35.5 % (42.0-54.0); HEMOGLOBIN 12.3 g/dL (13.5-18.0); LYMPHOCYTES # (AUTO) 0.9 X10^3/uL (1.3-2.9); LYMPHOCYTES % (AUTO) 8.7 % (21.0-51.0); MEAN CORPUSCULAR HEMOGLOBIN 33.7 pg (27.0-34.0); MEAN CORPUSCULAR HGB CONC 34.8 g/dL (33.0-35.0); MEAN CORPUSCULAR VOLUME 96.8 fL (80.0-100.0); MEAN PLATELET VOLUME 8.4 fL (7.4-11.0); MONOCYTES % (AUTO) 9.8 % (0.0-13.0); NEUTROPHILS % (AUTO) 77.3 % (42.0-75.0); PLATELET COUNT 365 X10^3/uL (150.0-450.0); RED BLOOD COUNT 3.66 X10^6/uL (4.7-6.0); RED CELL DISTRIBUTION WIDTH 13.1 % (11.6-16.5); WHITE BLOOD COUNT 10.4 X10^3/uL (3.6-10.0)
[2017-12-08] MEDS: VANCOMYCIN HCL 1 GM VIAL 1 G in D5W 250 ML IV 250 ML IV SCH ×2 (06:59→13:32)
[2017-12-08 07:03] LABS: ALANINE AMINOTRANSFERASE 34 Units/L (12-78); ALBUMIN 2.1 g/dL (3.4-5.0); ALKALINE PHOSPHATASE 87 Units/L (46-116); ASPARTATE AMINO TRANSFERASE 29 Units/L (15-37); BLOOD UREA NITROGEN 6 mg/dL (7-18); CALCIUM 8.5 mg/dL (8.5-10.1); CARBON DIOXIDE 29.3 mmol/L (21-32); CHLORIDE 106 mmol/L (98-107); COR NA(FOR HYPERGLY) 142 mmol/L (136-145); SODIUM 141 mmol/L (136-145); TOTAL PROTEIN 6.6 g/dL (6.4-8.2); eGFR NON BLACK RACES 50 (>60)
--- NOTE | 2017-12-08 08:23 | DR.PROGNOT ---
Hospital Progress Notes - Progress Note for Day of: Progress Note Date: 12/08/17 - Chief Complaint Chief Complaint: less pain today but having more swelling of the whole leg . had temp 100.2 yesterday. GFR 50. mild leukocytosis . - Past Medical Family Social History Past Med/Fam/Surg Hx: No changes since H&P Allergies: Allergies No Known Drug Allergies Allergy (Verified 11/30/17 12:36) - Review Of Systems ROS: No change since H&P - Vital Signs Vital Signs: Temperature 99.1 F Pulse Rate [Right Brachial] 98 Pulse Rate [Apical] 102 Pulse Rate [Bilateral Brachial 104 ] Pulse Rate 105 Respiratory Rate 22 Blood Pressure [Right Arm] 127/72 Blood Pressure [Left Arm] 157/73 Blood Pressure 122/86 O2 Sat by Pulse Oximetry 92 - Physical Exam Oriented: Normal Eyes: Normal Ear: Normal Nose: Normal Throat: Normal Respiratory: Wheezes Cardiovascular: Normal, Edema : Normal GI:Auscultation: Normal GI:Palpation: Normal GI: Tenderness: Normal Skin: Other (multiple skin ulcers , no necrosis or abscess formation ..) Musculoskeletal: Right (still having erythema extending above the knee with edema 2 +.. distal pulses present ), Leg Psychiatric: Normal Speech Pattern: Clear, Appropriate - Laboratory and Diagnostics Result Diagrams: 12/08/17 06:02 12/08/17 06:02 Labs: 12/03/17 10:51 Leg - Right Gram Stain - Final 12/03/17 10:51 Leg - Right Wound Culture - Preliminary 12/04/17 23:26 Sputum - Expectorated Sputum Sputum Culture - Final 12/04/17 23:26 Sputum - Expectorated Sputum - Final 12/05/17 11:52 Foot - Right Gram Stain - Final 12/05/17 11:52 Foot - Right Wound Culture - Preliminary 12/01/17 05:45 Blood Blood Culture - Final 12/01/17 05:33 Blood Blood Culture - Final 11/30/17 14:13 Blood Blood Culture - Final 11/30/17 14:07 Blood Blood Culture - Final 11/30/17 13:44 Leg - Right Gram Stain - Final 11/30/17 13:44 Leg - Right Wound Culture - Final Laboratory WBC 10.4 X10^3/uL (3.6-10.0) H 12/08/17 06:02 RBC 3.66 X10^6/uL (4.7-6.0) L 12/08/17 06:02 Hgb 12.3 g/dL (13.5-18.0) L 12/08/17 06:02 Hct 35.5 % (42.0-54.0) L 12/08/17 06:02 MCV 96.8 fL (80.0-100.0) 12/08/17 06:02 MCH 33.7 pg (27.0-34.0) 12/08/17 06:02 MCHC 34.8 g/dL (33.0-35.0) 12/08/17 06:02 RDW 13.1 % (11.6-16.5) 12/08/17 06:02 Plt Count 365 X10^3/uL (150.0-450.0) 12/08/17 06:02 Plt Count Comment Adequate (ADEQUATE) 12/01/17 05:33 MPV 8.4 fL (7.4-11.0) 12/08/17 06:02 Neut % (Auto) 77.3 % (42.0-75.0) H 12/08/17 06:02 Lymph % (Auto) 8.7 % (21.0-51.0) L 12/08/17 06:02 [place] % (Auto) 9.8 % (0.0-13.0) 12/08/17 06:02 Eos % (Auto) 3.8 % (0.9-2.9) H 12/08/17 06:02 Baso % (Auto) 0.4 % (0.2-1.0) 12/08/17 06:02 Neut # (Auto) 8.0 x10^3/uL (2.2-4.8) H 12/08/17 06:02 Lymph # (Auto) 0.9 X10^3/uL (1.3-2.9) L 12/08/17 06:02 [place] # (Auto) 1.0 x10^3/uL (0.3-0.8) H 12/08/17 06:02 Eos # (Auto) 0.4 x10^3/uL (0.0-0.2) H 12/08/17 06:02 Baso # (Auto) 0.0 X10^3/uL (0.0-0.1) 12/08/17 06:02 Absolute Nucleated RBC 0.0 /100WBC 12/08/17 06:02 Total Counted 100 12/01/17 05:33 Neutrophils % (Manual) 82 % (39-76) H 12/01/17 05:33 Band Neutrophils % 6 % (0-10) 12/01/17 05:33 Lymphocytes % (Manual) 9 % (13-43) L 12/01/17 05:33 Monocytes % (Manual) 3 % (4-9) L 12/01/17 05:33 Plt Morphology Comment Normal (NORMAL) 12/01/17 05:33 RBC Morphology Normal (NORMAL) 12/01/17 05:33 D-Dimer 1990 ng/mL (0-400) H* 11/30/17 14:07 Sodium 141 mmol/L (136-145) 12/08/17 06:02 Corrected Sodium 142 mmol/L (136-145) 12/08/17 06:02 Potassium 3.6 mmol/L (3.5-5.1) 12/08/17 06:02 Chloride 106 mmol/L (98-107) 12/08/17 06:02 Carbon Dioxide 29.3 mmol/L (21-32) 12/08/17 06:02 BUN 6 mg/dL (7-18) L 12/08/17 06:02 Creatinine 1.50 mg/dL (0.70-1.30) H 12/08/17 06:02 Est GFR (MDRD) Af Amer > 60 (>60) 12/08/17 06:02 Est GFR (MDRD) Non-Af 50 (>60) L 12/08/17 06:02 Glucose 130 mg/dL (65-99) H 12/08/17 06:02 Lactic Acid 1.4 mmol/L (0.4-2.0) 11/30/17 14:07 Calcium 8.5 mg/dL (8.5-10.1) 12/08/17 06:02 Corrected Calcium 10.0 mg/dL (8.5-10.1) 12/08/17 06:02 Magnesium 2.2 mg/dL (1.7-2.9) 12/06/17 17:35 Total Bilirubin 0.30 mg/dL (0.2-1.0) 12/08/17 06:02 AST 29 Units/L (15-37) 12/08/17 06:02 ALT 34 Units/L (12-78) 12/08/17 06:02 Alkaline Phosphatase 87 Units/L (46-116) 12/08/17 06:02 C-Reactive Protein 290.00 mg/L (0-3.0) H 11/30/17 13:41 Total Protein 6.6 g/dL (6.4-8.2) 12/08/17 06:02 Albumin 2.1 g/dL (3.4-5.0) L 12/08/17 06:02 Globulin 4.5 g/dL (2.5-4.5) 12/08/17 06:02 Albumin/Globulin Ratio 0.5 Ratio (1.1-2.1) L 12/08/17 06:02 Vancomycin Trough 19.0 ug/mL (15-20) 12/08/17 06:02 - Assessment and Plan 1: extensive cellulitis Rt leg. no abscess formation or necrosis. no compartment clear syndrom. improving with IV ATB , local Silvadene ,leg elevation and DVT prophylaxis. to repeat venous study today.. - Problem Patient Problems: Patient Problems Cellulitis of right lower leg (Acute) L03.115 Open wound of right lower extremity (Acute) S81.801A COPD (chronic obstructive pulmonary disease) (Acute) J44.9 Leg abscess (Acute) L02.419
[2017-12-08] MEDS: DUONEB 0.5 MG/3 MG NEB SCH ×4 (08:42→20:44)
[2017-12-08] MEDS: ZOSYN VIAL 4.5 GRAMS 4.5 G in NS 100 ML IV + SPIKE MINIBAG* 100 ML IV SCH ×2 (09:05→14:40)
[2017-12-08] MEDS: LOVENOX INJ 40 MG SYR SC SCH (09:05)
[2017-12-08] MEDS: SILVADENE TOP SCH ×2 (09:07→21:20)
--- NOTE | 2017-12-08 09:33 | RAD ---
Examination: Portable AP upright chest History: Fever, COPD Comparison reference 12/03/2017 Findings: Persistent cardiomegaly. Increasing vascular congestion. The left diaphragm is now partly o bscured by a developing airspace process in the left base. There is no large pleural effusion or pneu mothorax. Impression: Persistent cardiomegaly with increasing vascular congestion suggesting CHF. Retrocardiac opacity described may represent localized edema or developing pneumonia. Follow-up suggested. Reported By:
--- NOTE | 2017-12-08 13:50 | PCM.PROG ---
Progress Note - Progress Note for Day of Date: 12/08/17 - Subjective Subjective: 62 WM ER ADMISSION ON 11/30 WITH RLE CELLULITIS. PT CO PAIN TO RLE WITH ERYTHEMA AND EDEMA. WOUND CULTURES POSTIVE FOR STAPH. REPEAT WOUND CULTURES ARE PENDING. PT CO INCREASED PRESSURE AND SWELLING WHEN HE AMBULATED, INCREASED FLUID COLLECTION TO INSIDE RIGHT LOWER LEG, PT HAS INCREASED SWELLING TO RIGHT THIGH. VENOUS DOPPLER ORDERED THIS AM, WILL GIVEN LASIX 40MG IV, IVP KVO ONLY. WE WILL CONTINUE WOUND CARE, IV ANTIBIOTICS, AND LOVENOX PROPHALAXIS TODAY. OTHERWISE, WE WILL FOLLOW UP WITH AM LABS AND CONTINUE TO MONITOR PATIENT. - Past Medical Family Social History Past Med/Fam/Surg Hx: No changes since H&P Allergies: Allergies No Known Drug Allergies Allergy (Verified 11/30/17 12:36) - Review of Systems ROS: No change since H&P - Vital Signs and I&O's Vital Signs: Temperature 98.1 F Pulse Rate [Right Brachial] 105 Pulse Rate [Apical] 102 Pulse Rate [Bilateral Brachial 104 ] Pulse Rate 105 Respiratory Rate 20 Blood Pressure [Right Arm] 125/84 Blood Pressure [Left Arm] 157/73 Blood Pressure 122/86 O2 Sat by Pulse Oximetry 92 Intake and Output: Intake & Output 12/06/17 12/07/17 12/08/17 12/09/17 11:59 11:59 11:59 11:59 Intake Total 6010 / 6010 3430 / 3430 4370 / 4370 Balance 6010 / 6010 3430 / 3430 4370 / 4370 - Physical Exam Oriented: Normal Eyes: Normal Ear: Normal Nose: Normal Throat: Normal Respiratory: Wheezes, Rhonchi Cardiovascular: Normal, Edema : Normal Auscultation: Bowel Sounds: Normal Tenderness: Normal Skin: Other (multiple skin ulcers , no necrosis or abscess formation ..) Musculoskeletal: Right (still having erythema extending above the knee with edema 2 +.. distal pulses present ), Leg Psychiatric: Normal Speech Pattern: Clear, Appropriate - Laboratory and Diagnostics Result Diagrams: 12/08/17 06:02 12/08/17 06:02 Labs: 12/05/17 11:52 Foot - Right Gram Stain - Final 12/05/17 11:52 Foot - Right Wound Culture - Final Staphylococcus Haemolyticus 12/03/17 10:51 Leg - Right Gram Stain - Final 12/03/17 10:51 Leg - Right Wound Culture - Final 12/04/17 23:26 Sputum - Expectorated Sputum Sputum Culture - Final 12/04/17 23:26 Sputum - Expectorated Sputum - Final 12/01/17 05:45 Blood Blood Culture - Final 12/01/17 05:33 Blood Blood Culture - Final 11/30/17 14:13 Blood Blood Culture - Final 11/30/17 14:07 Blood Blood Culture - Final 11/30/17 13:44 Leg - Right Gram Stain - Final 11/30/17 13:44 Leg - Right Wound Culture - Final Laboratory WBC 10.4 X10^3/uL (3.6-10.0) H 12/08/17 06:02 RBC 3.66 X10^6/uL (4.7-6.0) L 12/08/17 06:02 Hgb 12.3 g/dL (13.5-18.0) L 12/08/17 06:02 Hct 35.5 % (42.0-54.0) L 12/08/17 06:02 MCV 96.8 fL (80.0-100.0) 12/08/17 06:02 MCH 33.7 pg (27.0-34.0) 12/08/17 06:02 MCHC 34.8 g/dL (33.0-35.0) 12/08/17 06:02 RDW 13.1 % (11.6-16.5) 12/08/17 06:02 Plt Count 365 X10^3/uL (150.0-450.0) 12/08/17 06:02 Plt Count Comment Adequate (ADEQUATE) 12/01/17 05:33 MPV 8.4 fL (7.4-11.0) 12/08/17 06:02 Neut % (Auto) 77.3 % (42.0-75.0) H 12/08/17 06:02 Lymph % (Auto) 8.7 % (21.0-51.0) L 12/08/17 06:02 [place] % (Auto) 9.8 % (0.0-13.0) 12/08/17 06:02 Eos % (Auto) 3.8 % (0.9-2.9) H 12/08/17 06:02 Baso % (Auto) 0.4 % (0.2-1.0) 12/08/17 06:02 Neut # (Auto) 8.0 x10^3/uL (2.2-4.8) H 12/08/17 06:02 Lymph # (Auto) 0.9 X10^3/uL (1.3-2.9) L 12/08/17 06:02 [place] # (Auto) 1.0 x10^3/uL (0.3-0.8) H 12/08/17 06:02 Eos # (Auto) 0.4 x10^3/uL (0.0-0.2) H 12/08/17 06:02 Baso # (Auto) 0.0 X10^3/uL (0.0-0.1) 12/08/17 06:02 Absolute Nucleated RBC 0.0 /100WBC 12/08/17 06:02 Total Counted 100 12/01/17 05:33 Neutrophils % (Manual) 82 % (39-76) H 12/01/17 05:33 Band Neutrophils % 6 % (0-10) 12/01/17 05:33 Lymphocytes % (Manual) 9 % (13-43) L 12/01/17 05:33 Monocytes % (Manual) 3 % (4-9) L 12/01/17 05:33 Plt Morphology Comment Normal (NORMAL) 12/01/17 05:33 RBC Morphology Normal (NORMAL) 12/01/17 05:33 D-Dimer 1990 ng/mL (0-400) H* 11/30/17 14:07 Sodium 141 mmol/L (136-145) 12/08/17 06:02 Corrected Sodium 142 mmol/L (136-145) 12/08/17 06:02 Potassium 3.6 mmol/L (3.5-5.1) 12/08/17 06:02 Chloride 106 mmol/L (98-107) 12/08/17 06:02 Carbon Dioxide 29.3 mmol/L (21-32) 12/08/17 06:02 BUN 6 mg/dL (7-18) L 12/08/17 06:02 Creatinine 1.50 mg/dL (0.70-1.30) H 12/08/17 06:02 Est GFR (MDRD) Af Amer > 60 (>60) 12/08/17 06:02 Est GFR (MDRD) Non-Af 50 (>60) L 12/08/17 06:02 Glucose 130 mg/dL (65-99) H 12/08/17 06:02 Lactic Acid 1.4 mmol/L (0.4-2.0) 11/30/17 14:07 Calcium 8.5 mg/dL (8.5-10.1) 12/08/17 06:02 Corrected Calcium 10.0 mg/dL (8.5-10.1) 12/08/17 06:02 Magnesium 2.2 mg/dL (1.7-2.9) 12/06/17 17:35 Total Bilirubin 0.30 mg/dL (0.2-1.0) 12/08/17 06:02 AST 29 Units/L (15-37) 12/08/17 06:02 ALT 34 Units/L (12-78) 12/08/17 06:02 Alkaline Phosphatase 87 Units/L (46-116) 12/08/17 06:02 C-Reactive Protein 290.00 mg/L (0-3.0) H 11/30/17 13:41 Total Protein 6.6 g/dL (6.4-8.2) 12/08/17 06:02 Albumin 2.1 g/dL (3.4-5.0) L 12/08/17 06:02 Globulin 4.5 g/dL (2.5-4.5) 12/08/17 06:02 Albumin/Globulin Ratio 0.5 Ratio (1.1-2.1) L 12/08/17 06:02 Vancomycin Trough 19.0 ug/mL (15-20) 12/08/17 06:02 - Plan (1) Cellulitis of right lower leg Status: Acute Plan: IV ANTIBIOTICS, BLOOD AND WOUND CULTURES. BP MONITORING, COPD RESP CONSULT. REPEAT AM LABS, VERIFY HOME MEDS. PAIN CONTROL (2) Open wound of right lower extremity Status: Acute (3) COPD (chronic obstructive pulmonary disease) Status: Acute (4) Leg abscess Status: Acute Plan: RLE CELLULITIS WITH POSSIBLE ABSCESS FORMATION, CONSULT SURGEON (5) CHF (congestive heart failure) Status: Acute Plan: IV LASIX. REPEAT AM CXR
[2017-12-08] MEDS: LASIX IVP SCH ×2 (14:39→20:34)
[2017-12-08] MEDS: ZYVOX 600MG IV 600 MG/300 ML BAG IV SCH ×2 (15:14→22:28)
--- NOTE | 2017-12-08 15:28 | VAS ---
History: Lower extremity swelling and possible cellulitis Study: Doppler ultrasound of the deep veins of both lower extremities Comparison: November 30 Findings: The deep veins from the common femoral to the popliteal veins are widely patent with augmen tation and compression and good Doppler flow. Impression: No evidence for deep venous thrombosis in either lower extremity Reported By:
--- NOTE | 2017-12-08 18:15 | PCM.PROG ---
Progress Note - Progress Note for Day of Date: 12/05/17 - Subjective Subjective: 62 WM ER ADMISSION ON 11/30 WITH RLE CELLULITIS. PT CO PAIN TO RLE WITH ERYTHEMA AND EDEMA. WOUND CULTURES POSTIVE FOR STAPH. REPEAT WOUND CULTURES ARE PENDING. WE WILL CONTINUE WOUND CARE, IV ANTIBIOTICS, AND LOVENOX PROPHALAXIS TODAY. OTHERWISE, WE WILL FOLLOW UP WITH AM LABS AND CONTINUE TO MONITOR PATIENT. - Past Medical Family Social History Past Med/Fam/Surg Hx: No changes since H&P Allergies: Allergies No Known Drug Allergies Allergy (Verified 11/30/17 12:36) - Review of Systems ROS: No change since H&P - Vital Signs and I&O's Vital Signs: Temperature 98.0 F Pulse Rate [Right Brachial] 103 Pulse Rate [Apical] 102 Pulse Rate [Bilateral Brachial 104 ] Pulse Rate 105 Respiratory Rate 20 Blood Pressure [Right Arm] 120/78 Blood Pressure [Left Arm] 157/73 Blood Pressure 122/86 O2 Sat by Pulse Oximetry 95 Intake and Output: Intake & Output 12/06/17 12/07/17 12/08/17 12/09/17 11:59 11:59 11:59 11:59 Intake Total 6010 / 6010 3430 / 3430 4370 / 4370 [id number] / [id number] Balance 6010 / 6010 3430 / 3430 4370 / 4370 99051 / [id number] - Physical Exam Oriented: Normal Eyes: Normal Ear: Normal Nose: Normal Throat: Normal Respiratory: Wheezes, Rhonchi Cardiovascular: Normal, Edema : Normal Auscultation: Bowel Sounds: Normal Tenderness: Normal Skin: Other (multiple skin ulcers , no necrosis or abscess formation ..) Musculoskeletal: Right (still having erythema extending above the knee with edema 2 +.. distal pulses present ), Leg Psychiatric: Normal Speech Pattern: Clear, Appropriate - Laboratory and Diagnostics Result Diagrams: 12/08/17 06:02 12/08/17 06:02 Labs: 12/05/17 11:52 Foot - Right Gram Stain - Final 12/05/17 11:52 Foot - Right Wound Culture - Final Staphylococcus Haemolyticus 12/03/17 10:51 Leg - Right Gram Stain - Final 12/03/17 10:51 Leg - Right Wound Culture - Final 12/04/17 23:26 Sputum - Expectorated Sputum Sputum Culture - Final 12/04/17 23:26 Sputum - Expectorated Sputum - Final 12/01/17 05:45 Blood Blood Culture - Final 12/01/17 05:33 Blood Blood Culture - Final 11/30/17 14:13 Blood Blood Culture - Final 11/30/17 14:07 Blood Blood Culture - Final 11/30/17 13:44 Leg - Right Gram Stain - Final 11/30/17 13:44 Leg - Right Wound Culture - Final Laboratory WBC 10.4 X10^3/uL (3.6-10.0) H 12/08/17 06:02 RBC 3.66 X10^6/uL (4.7-6.0) L 12/08/17 06:02 Hgb 12.3 g/dL (13.5-18.0) L 12/08/17 06:02 Hct 35.5 % (42.0-54.0) L 12/08/17 06:02 MCV 96.8 fL (80.0-100.0) 12/08/17 06:02 MCH 33.7 pg (27.0-34.0) 12/08/17 06:02 MCHC 34.8 g/dL (33.0-35.0) 12/08/17 06:02 RDW 13.1 % (11.6-16.5) 12/08/17 06:02 Plt Count 365 X10^3/uL (150.0-450.0) 12/08/17 06:02 Plt Count Comment Adequate (ADEQUATE) 12/01/17 05:33 MPV 8.4 fL (7.4-11.0) 12/08/17 06:02 Neut % (Auto) 77.3 % (42.0-75.0) H 12/08/17 06:02 Lymph % (Auto) 8.7 % (21.0-51.0) L 12/08/17 06:02 [place] % (Auto) 9.8 % (0.0-13.0) 12/08/17 06:02 Eos % (Auto) 3.8 % (0.9-2.9) H 12/08/17 06:02 Baso % (Auto) 0.4 % (0.2-1.0) 12/08/17 06:02 Neut # (Auto) 8.0 x10^3/uL (2.2-4.8) H 12/08/17 06:02 Lymph # (Auto) 0.9 X10^3/uL (1.3-2.9) L 12/08/17 06:02 [place] # (Auto) 1.0 x10^3/uL (0.3-0.8) H 12/08/17 06:02 Eos # (Auto) 0.4 x10^3/uL (0.0-0.2) H 12/08/17 06:02 Baso # (Auto) 0.0 X10^3/uL (0.0-0.1) 12/08/17 06:02 Absolute Nucleated RBC 0.0 /100WBC 12/08/17 06:02 Total Counted 100 12/01/17 05:33 Neutrophils % (Manual) 82 % (39-76) H 12/01/17 05:33 Band Neutrophils % 6 % (0-10) 12/01/17 05:33 Lymphocytes % (Manual) 9 % (13-43) L 12/01/17 05:33 Monocytes % (Manual) 3 % (4-9) L 12/01/17 05:33 Plt Morphology Comment Normal (NORMAL) 12/01/17 05:33 RBC Morphology Normal (NORMAL) 12/01/17 05:33 D-Dimer 1990 ng/mL (0-400) H* 11/30/17 14:07 Sodium 141 mmol/L (136-145) 12/08/17 06:02 Corrected Sodium 142 mmol/L (136-145) 12/08/17 06:02 Potassium 3.6 mmol/L (3.5-5.1) 12/08/17 06:02 Chloride 106 mmol/L (98-107) 12/08/17 06:02 Carbon Dioxide 29.3 mmol/L (21-32) 12/08/17 06:02 BUN 6 mg/dL (7-18) L 12/08/17 06:02 Creatinine 1.50 mg/dL (0.70-1.30) H 12/08/17 06:02 Est GFR (MDRD) Af Amer > 60 (>60) 12/08/17 06:02 Est GFR (MDRD) Non-Af 50 (>60) L 12/08/17 06:02 Glucose 130 mg/dL (65-99) H 12/08/17 06:02 Lactic Acid 1.4 mmol/L (0.4-2.0) 11/30/17 14:07 Calcium 8.5 mg/dL (8.5-10.1) 12/08/17 06:02 Corrected Calcium 10.0 mg/dL (8.5-10.1) 12/08/17 06:02 Magnesium 2.2 mg/dL (1.7-2.9) 12/06/17 17:35 Total Bilirubin 0.30 mg/dL (0.2-1.0) 12/08/17 06:02 AST 29 Units/L (15-37) 12/08/17 06:02 ALT 34 Units/L (12-78) 12/08/17 06:02 Alkaline Phosphatase 87 Units/L (46-116) 12/08/17 06:02 C-Reactive Protein 290.00 mg/L (0-3.0) H 11/30/17 13:41 Total Protein 6.6 g/dL (6.4-8.2) 12/08/17 06:02 Albumin 2.1 g/dL (3.4-5.0) L 12/08/17 06:02 Globulin 4.5 g/dL (2.5-4.5) 12/08/17 06:02 Albumin/Globulin Ratio 0.5 Ratio (1.1-2.1) L 12/08/17 06:02 Vancomycin Trough 19.0 ug/mL (15-20) 12/08/17 06:02 - Plan (1) Cellulitis of right lower leg Status: Acute Plan: IV ANTIBIOTICS, BLOOD AND WOUND CULTURES. BP MONITORING, COPD RESP CONSULT. REPEAT AM LABS, VERIFY HOME MEDS. PAIN CONTROL (2) Open wound of right lower extremity Status: Acute (3) COPD (chronic obstructive pulmonary disease) Status: Acute (4) Leg abscess Status: Acute Plan: RLE CELLULITIS WITH POSSIBLE ABSCESS FORMATION, CONSULT SURGEON (5) CHF (congestive heart failure) Status: Acute Plan: IV LASIX. REPEAT AM CXR
[2017-12-08] MEDS: NORCO 10/325 TAB PO PRN (19:27)
[2017-12-08] MEDS: COLACE CAP 100 MG PO SCH (20:32)
[2017-12-09] MEDS: NORCO 10/325 TAB PO PRN ×3 (00:19→23:02)
[2017-12-09] MEDS: NS 1000 ML 1,000 ML IV SCH ×3 (01:34→18:06)
[2017-12-09 05:29] LABS: BASOPHILS # (AUTO) 0.1 X10^3/uL (0.0-0.1); BASOPHILS % (AUTO) 0.5 % (0.2-1.0); EOSINOPHILS # (AUTO) 0.4 x10^3/uL (0.0-0.2); EOSINOPHILS % (AUTO) 3.4 % (0.9-2.9); HEMOGLOBIN 12.7 g/dL (13.5-18.0); LYMPHOCYTES # (AUTO) 1.2 X10^3/uL (1.3-2.9); LYMPHOCYTES % (AUTO) 11.1 % (21.0-51.0); MEAN CORPUSCULAR HEMOGLOBIN 33.6 pg (27.0-34.0); MEAN CORPUSCULAR HGB CONC 34.3 g/dL (33.0-35.0); MEAN CORPUSCULAR VOLUME 98.1 fL (80.0-100.0); MEAN PLATELET VOLUME 8.5 fL (7.4-11.0); MONOCYTES # (AUTO) 0.7 x10^3/uL (0.3-0.8); MONOCYTES % (AUTO) 7.1 % (0.0-13.0); NEUTROPHILS # (AUTO) 8.2 x10^3/uL (2.2-4.8); NEUTROPHILS % (AUTO) 77.9 % (42.0-75.0); PLATELET COUNT 379 X10^3/uL (150.0-450.0); RED BLOOD COUNT 3.77 X10^6/uL (4.7-6.0); RED CELL DISTRIBUTION WIDTH 13.1 % (11.6-16.5); WHITE BLOOD COUNT 10.5 X10^3/uL (3.6-10.0)
[2017-12-09 05:33] LABS: ALBUMIN 2.1 g/dL (3.4-5.0); CALCIUM 8.8 mg/dL (8.5-10.1); CARBON DIOXIDE 31.5 mmol/L (21-32); COR CA(FOR HYPOALB) 10.3 mg/dL (8.5-10.1); CREATININE 1.77 mg/dL (0.70-1.30); TOTAL PROTEIN 6.7 g/dL (6.4-8.2)
--- NOTE | 2017-12-09 08:12 | RAD ---
HISTORY: CHF. Possible pneumonia. Study: AP portable chest Comparison: 12/08/2017 Findings: Slight interval decrease in the pulmonary vascular congestion is noted. Persistent left lower lobe a telectatic change/infiltrate is noted. Moderate cardiomegaly is present. No acute bony abnormalitie s are identified. IMPRESSION: 1. Moderate cardiomegaly with slight interval decrease in the pulmonary vascular congestion. 2. Persistent left lower lobe atelectatic change/infiltrate. Reported By:
[2017-12-09] MEDS: LASIX IVP SCH (08:32)
[2017-12-09] MEDS: ZYVOX 600MG IV 600 MG/300 ML BAG IV SCH ×2 (08:40→20:36)
[2017-12-09] MEDS: LOVENOX INJ 40 MG SYR SC SCH (08:40)
[2017-12-09] MEDS: DUONEB 0.5 MG/3 MG NEB SCH ×4 (08:42→21:46)
[2017-12-09] MEDS: K-LYTE EFFERVESCENT PO SCH ×2 (09:00→20:36)
[2017-12-09] MEDS: SILVADENE TOP SCH ×2 (10:10→20:36)
[2017-12-09] MEDS: PULMICORT NEB TX 0.5 MG NEB SCH ×2 (12:02→21:46)
[2017-12-09] MEDS ORDERED: NS 100 ML IV 100 ML IV ONE (13:15)
--- NOTE | 2017-12-09 13:23 | PCM.PROG ---
Progress Note - Progress Note for Day of Date: 12/09/17 - Subjective Subjective: 62 WM ER ADMISSION ON 11/30 WITH RLE CELLULITIS. PT CO PAIN TO RLE WITH ERYTHEMA AND EDEMA. WE WILL CONTINUE WOUND CARE, IV ANTIBIOTICS, AND LOVENOX PROPHALAXIS. PT HAS SLIGHT IMPROVEMENT IN CHEST CONGESTION AND RLE EDEMA S/P IV LASIX. PT HYPOKALEMIC THIS AM, RECEIVING POTASSIUM REPLACEMENT. CTA OF CHEST DUE TO CONTINUED CO SOB, PT ON RESP THERAPY. WE WILL FOLLOW UP WITH AM LABS AND CONTINUE TO MONITOR PATIENT. - Past Medical Family Social History Past Med/Fam/Surg Hx: No changes since H&P Allergies: Allergies No Known Drug Allergies Allergy (Verified 11/30/17 12:36) - Review of Systems ROS: No change since H&P - Vital Signs and I&O's Vital Signs: Temperature 98.6 F Pulse Rate [Right Brachial] 103 Pulse Rate [Apical] 102 Pulse Rate [Bilateral Brachial 104 ] Pulse Rate 118 Respiratory Rate 20 Blood Pressure [Right Arm] 133/81 Blood Pressure [Left Arm] 157/73 Blood Pressure 122/86 O2 Sat by Pulse Oximetry 96 Intake and Output: Intake & Output 12/07/17 12/08/17 12/09/17 12/10/17 11:59 11:59 11:59 11:59 Intake Total 3430 / 3430 4370 / 4370 55070 / 26682 Balance 3430 / 3430 4370 / 4370 59967 / 79134 - Physical Exam Oriented: Normal Eyes: Normal Ear: Normal Nose: Normal Throat: Normal Respiratory: Diminished, Wheezes Cardiovascular: Normal, Edema : Normal Auscultation: Bowel Sounds: Normal Tenderness: Normal Skin: Other (multiple skin ulcers , no necrosis or abscess formation ..) Musculoskeletal: Right (still having erythema extending above the knee with edema 2 +.. distal pulses present ), Leg Psychiatric: Normal Speech Pattern: Clear, Appropriate - Laboratory and Diagnostics Result Diagrams: 12/09/17 04:42 12/09/17 04:42 Labs: 12/05/17 11:52 Foot - Right Gram Stain - Final 12/05/17 11:52 Foot - Right Wound Culture - Final Staphylococcus Haemolyticus 12/03/17 10:51 Leg - Right Gram Stain - Final 12/03/17 10:51 Leg - Right Wound Culture - Final 12/04/17 23:26 Sputum - Expectorated Sputum Sputum Culture - Final 12/04/17 23:26 Sputum - Expectorated Sputum - Final 12/01/17 05:45 Blood Blood Culture - Final 12/01/17 05:33 Blood Blood Culture - Final 11/30/17 14:13 Blood Blood Culture - Final 11/30/17 14:07 Blood Blood Culture - Final 11/30/17 13:44 Leg - Right Gram Stain - Final 11/30/17 13:44 Leg - Right Wound Culture - Final Laboratory WBC 10.5 X10^3/uL (3.6-10.0) H 12/09/17 04:42 RBC 3.77 X10^6/uL (4.7-6.0) L 12/09/17 04:42 Hgb 12.7 g/dL (13.5-18.0) L 12/09/17 04:42 Hct 37.0 % (42.0-54.0) L 12/09/17 04:42 MCV 98.1 fL (80.0-100.0) 12/09/17 04:42 MCH 33.6 pg (27.0-34.0) 12/09/17 04:42 MCHC 34.3 g/dL (33.0-35.0) 12/09/17 04:42 RDW 13.1 % (11.6-16.5) 12/09/17 04:42 Plt Count 379 X10^3/uL (150.0-450.0) 12/09/17 04:42 Plt Count Comment Adequate (ADEQUATE) 12/01/17 05:33 MPV 8.5 fL (7.4-11.0) 12/09/17 04:42 Neut % (Auto) 77.9 % (42.0-75.0) H 12/09/17 04:42 Lymph % (Auto) 11.1 % (21.0-51.0) L 12/09/17 04:42 [place] % (Auto) 7.1 % (0.0-13.0) 12/09/17 04:42 Eos % (Auto) 3.4 % (0.9-2.9) H 12/09/17 04:42 Baso % (Auto) 0.5 % (0.2-1.0) 12/09/17 04:42 Neut # (Auto) 8.2 x10^3/uL (2.2-4.8) H 12/09/17 04:42 Lymph # (Auto) 1.2 X10^3/uL (1.3-2.9) L 12/09/17 04:42 [place] # (Auto) 0.7 x10^3/uL (0.3-0.8) 12/09/17 04:42 Eos # (Auto) 0.4 x10^3/uL (0.0-0.2) H 12/09/17 04:42 Baso # (Auto) 0.1 X10^3/uL (0.0-0.1) 12/09/17 04:42 Absolute Nucleated RBC 0.0 /100WBC 12/09/17 04:42 Total Counted 100 12/01/17 05:33 Neutrophils % (Manual) 82 % (39-76) H 12/01/17 05:33 Band Neutrophils % 6 % (0-10) 12/01/17 05:33 Lymphocytes % (Manual) 9 % (13-43) L 12/01/17 05:33 Monocytes % (Manual) 3 % (4-9) L 12/01/17 05:33 Plt Morphology Comment Normal (NORMAL) 12/01/17 05:33 RBC Morphology Normal (NORMAL) 12/01/17 05:33 D-Dimer 1990 ng/mL (0-400) H* 11/30/17 14:07 Sodium 142 mmol/L (136-145) 12/09/17 04:42 Corrected Sodium 143 mmol/L (136-145) 12/09/17 04:42 Potassium 3.0 mmol/L (3.5-5.1) L* 12/09/17 04:42 Chloride 103 mmol/L (98-107) 12/09/17 04:42 Carbon Dioxide 31.5 mmol/L (21-32) 12/09/17 04:42 BUN 7 mg/dL (7-18) 12/09/17 04:42 Creatinine 1.77 mg/dL (0.70-1.30) H 12/09/17 04:42 Est GFR (MDRD) Af Amer 50 (>60) L 12/09/17 04:42 Est GFR (MDRD) Non-Af 41 (>60) L 12/09/17 04:42 Glucose 160 mg/dL (65-99) H 12/09/17 04:42 Lactic Acid 1.4 mmol/L (0.4-2.0) 11/30/17 14:07 Calcium 8.8 mg/dL (8.5-10.1) 12/09/17 04:42 Corrected Calcium 10.3 mg/dL (8.5-10.1) H 12/09/17 04:42 Magnesium 2.2 mg/dL (1.7-2.9) 12/06/17 17:35 Total Bilirubin 0.20 mg/dL (0.2-1.0) 12/09/17 04:42 AST 26 Units/L (15-37) 12/09/17 04:42 ALT 30 Units/L (12-78) 12/09/17 04:42 Alkaline Phosphatase 91 Units/L (46-116) 12/09/17 04:42 C-Reactive Protein 290.00 mg/L (0-3.0) H 11/30/17 13:41 Total Protein 6.7 g/dL (6.4-8.2) 12/09/17 04:42 Albumin 2.1 g/dL (3.4-5.0) L 12/09/17 04:42 Globulin 4.6 g/dL (2.5-4.5) H 12/09/17 04:42 Albumin/Globulin Ratio 0.5 Ratio (1.1-2.1) L 12/09/17 04:42 Vancomycin Trough 19.0 ug/mL (15-20) 12/08/17 06:02 - Plan (1) Cellulitis of right lower leg Status: Acute Plan: IV ANTIBIOTICS, BLOOD AND WOUND CULTURES. BP MONITORING, COPD RESP CONSULT. REPEAT AM LABS, VERIFY HOME MEDS. PAIN CONTROL (2) Open wound of right lower extremity Status: Acute (3) COPD (chronic obstructive pulmonary disease) Status: Acute (4) Leg abscess Status: Acute Plan: RLE CELLULITIS, CONSULTING SURGEON (5) CHF (congestive heart failure) Status: Acute Plan: IV LASIX X DOSES, HOLDING THIS AFTERNOON DUE TO DECREASED RENAL FUNCTION. I & O, SUPPLEMENTAL O2 PRN (6) SOB (shortness of breath) Status: Acute Plan: HX COPD, CTA CHEST R/O PE
--- NOTE | 2017-12-09 14:39 | CT ---
History: Elevated D-dimer Study: CTA chest utilizing 100 mL Omnipaque 350 IV contrast. Sagittal and coronal and axial MIPS of t he pulmonary arteries were displayed. Findings: There are bilateral small pleural effusions. There is some focal consolidation peripherally in the lingula and subsegmental atelectasis at the lung bases. There is perihilar bronchial wall thi ckening. There is tubular bronchiectasis extending into the right upper lobe. There is a thick linear irregular density peripherally and laterally in the right upper lobe. There are prominent lymph node s in the aortopulmonary window and lateral to the aortic arch measuring up to 1.4 cm diameter. There is a 1.67 cm precarinal mediastinal lymph node. There is 2.5 cm subcarinal adenopathy. There are prom inent anterior superior mediastinal lymph nodes as well. No pulmonary embolus is demonstrated. There are prominent degenerative osteophytes about the lower thoracic spine. The visualized upper abdomen i s unremarkable. Impression: 1. No evidence for pulmonary embolus 2. Small bilateral pleural effusions and nonspecific mild mediastinal adenopathy with subsegmental at electasis at both lung bases and in the lingula. 3. Nonspecific irregular right upper lobe lateral noncalcified 2 cm long and 4 mm thick density that may represent a scar. 4. Tubular bronchiectasis in the right upper lobe. Reported By:
[2017-12-09 16:17] LABS: CALCIUM 9.4 mg/dL (8.5-10.1); CARBON DIOXIDE 32.2 mmol/L (21-32); CREATININE 1.77 mg/dL (0.70-1.30)
[2017-12-09] MEDS: COLACE CAP 100 MG PO SCH (20:36)
[2017-12-10] MEDS: NORCO 10/325 TAB PO PRN ×2 (02:56→14:50)
[2017-12-10] MEDS: NS 1000 ML 1,000 ML IV SCH ×3 (02:56→16:09)
[2017-12-10 05:57] LABS: BASOPHILS # (AUTO) 0.1 X10^3/uL (0.0-0.1); BASOPHILS % (AUTO) 0.6 % (0.2-1.0); EOSINOPHILS # (AUTO) 0.4 x10^3/uL (0.0-0.2); EOSINOPHILS % (AUTO) 3.8 % (0.9-2.9); HEMATOCRIT 37.8 % (42.0-54.0); LYMPHOCYTES # (AUTO) 1.1 X10^3/uL (1.3-2.9); LYMPHOCYTES % (AUTO) 11.3 % (21.0-51.0); MEAN CORPUSCULAR HEMOGLOBIN 33.6 pg (27.0-34.0); MEAN CORPUSCULAR HGB CONC 34.5 g/dL (33.0-35.0); MEAN CORPUSCULAR VOLUME 97.4 fL (80.0-100.0); MEAN PLATELET VOLUME 8.3 fL (7.4-11.0); MONOCYTES # (AUTO) 0.7 x10^3/uL (0.3-0.8); MONOCYTES % (AUTO) 7.3 % (0.0-13.0); NEUTROPHILS # (AUTO) 7.4 x10^3/uL (2.2-4.8); PLATELET COUNT 381 X10^3/uL (150.0-450.0); RED BLOOD COUNT 3.88 X10^6/uL (4.7-6.0); WHITE BLOOD COUNT 9.6 X10^3/uL (3.6-10.0)
[2017-12-10 06:13] LABS: ALBUMIN 2.2 g/dL (3.4-5.0); CALCIUM 8.7 mg/dL (8.5-10.1); CARBON DIOXIDE 33.1 mmol/L (21-32); COR CA(FOR HYPOALB) 10.1 mg/dL (8.5-10.1); CREATININE 1.76 mg/dL (0.70-1.30); TOTAL PROTEIN 6.9 g/dL (6.4-8.2)
[2017-12-10] MEDS: LOVENOX INJ 40 MG SYR SC SCH (08:26)
[2017-12-10] MEDS: ZYVOX 600MG IV 600 MG/300 ML BAG IV SCH ×2 (08:27→20:42)
[2017-12-10] MEDS: SILVADENE TOP SCH ×2 (08:27→21:35)
[2017-12-10] MEDS: DUONEB 0.5 MG/3 MG NEB SCH ×4 (09:00→21:56)
[2017-12-10] MEDS: PULMICORT NEB TX 0.5 MG NEB SCH ×2 (09:00→21:56)
[2017-12-10] MEDS ORDERED: K-LYTE EFFERVESCENT PO ONE (11:40)
[2017-12-10 16:18] LABS: CALCIUM 9.1 mg/dL (8.5-10.1); CARBON DIOXIDE 35.6 mmol/L (21-32); CREATININE 1.75 mg/dL (0.70-1.30)
--- NOTE | 2017-12-10 17:21 | PCM.PROG ---
Progress Note - Progress Note for Day of Date: 12/10/17 - Subjective Subjective: 62 WM ER ADMISSION ON 11/30 WITH RLE CELLULITIS. PT CO PAIN TO RLE WITH ERYTHEMA AND EDEMA. WE WILL CONTINUE WOUND CARE, IV ANTIBIOTICS, AND LOVENOX PROPHALAXIS. PT HAS SLIGHT IMPROVEMENT IN CHEST CONGESTION AND RLE EDEMA S/P IV LASIX. CONTINUES WITH PITTING EDEMA TO RIGHT THIGH. WE WILL FOLLOW UP WITH AM LABS AND CONTINUE TO MONITOR PATIENT, CT WITH CONTRAST TO RLE INCLUDING GROIN R/O OBSTRUCTIVE ADENOPATHY. ENCOURAGE ORAL HYDRATION - Past Medical Family Social History Past Med/Fam/Surg Hx: No changes since H&P Allergies: Allergies No Known Drug Allergies Allergy (Verified 11/30/17 12:36) - Review of Systems ROS: No change since H&P - Vital Signs and I&O's Vital Signs: Temperature 98.1 F Pulse Rate [Right Brachial] 94 Pulse Rate [Apical] 102 Pulse Rate [Bilateral Brachial 104 ] Pulse Rate 94 Respiratory Rate 18 Blood Pressure [Right Arm] 141/74 Blood Pressure [Left Arm] 157/73 Blood Pressure 122/86 O2 Sat by Pulse Oximetry 99 Intake and Output: Intake & Output 12/08/17 12/09/17 12/10/17 12/11/17 11:59 11:59 11:59 11:59 Intake Total 4370 / 4370 60358 / 77560 2940 / 2940 1870 / 1870 Balance 4370 / 4370 13818 / 99378 2940 / 2940 1870 / 1870 - Physical Exam Oriented: Normal Eyes: Normal Ear: Normal Nose: Normal Throat: Normal Respiratory: Diminished, Wheezes Cardiovascular: Normal, Edema : Normal Auscultation: Bowel Sounds: Normal Tenderness: Normal Skin: Other (multiple skin ulcers , no necrosis or abscess formation ..) Musculoskeletal: Right (still having erythema extending above the knee with edema 2 +.. distal pulses present ), Leg Psychiatric: Normal Speech Pattern: Clear, Appropriate - Laboratory and Diagnostics Result Diagrams: 12/10/17 05:27 12/10/17 16:00 Labs: 12/05/17 11:52 Foot - Right Gram Stain - Final 12/05/17 11:52 Foot - Right Wound Culture - Final Staphylococcus Haemolyticus 12/03/17 10:51 Leg - Right Gram Stain - Final 12/03/17 10:51 Leg - Right Wound Culture - Final 12/04/17 23:26 Sputum - Expectorated Sputum Sputum Culture - Final 12/04/17 23:26 Sputum - Expectorated Sputum - Final 12/01/17 05:45 Blood Blood Culture - Final 12/01/17 05:33 Blood Blood Culture - Final 11/30/17 14:13 Blood Blood Culture - Final 11/30/17 14:07 Blood Blood Culture - Final 11/30/17 13:44 Leg - Right Gram Stain - Final 11/30/17 13:44 Leg - Right Wound Culture - Final Laboratory WBC 9.6 X10^3/uL (3.6-10.0) 12/10/17 05:27 RBC 3.88 X10^6/uL (4.7-6.0) L 12/10/17 05:27 Hgb 13.0 g/dL (13.5-18.0) L 12/10/17 05:27 Hct 37.8 % (42.0-54.0) L 12/10/17 05:27 MCV 97.4 fL (80.0-100.0) 12/10/17 05:27 MCH 33.6 pg (27.0-34.0) 12/10/17 05:27 MCHC 34.5 g/dL (33.0-35.0) 12/10/17 05:27 RDW 13.0 % (11.6-16.5) 12/10/17 05:27 Plt Count 381 X10^3/uL (150.0-450.0) 12/10/17 05:27 Plt Count Comment Adequate (ADEQUATE) 12/01/17 05:33 MPV 8.3 fL (7.4-11.0) 12/10/17 05:27 Neut % (Auto) 77.0 % (42.0-75.0) H 12/10/17 05:27 Lymph % (Auto) 11.3 % (21.0-51.0) L 12/10/17 05:27 [place] % (Auto) 7.3 % (0.0-13.0) 12/10/17 05:27 Eos % (Auto) 3.8 % (0.9-2.9) H 12/10/17 05:27 Baso % (Auto) 0.6 % (0.2-1.0) 12/10/17 05:27 Neut # (Auto) 7.4 x10^3/uL (2.2-4.8) H 12/10/17 05:27 Lymph # (Auto) 1.1 X10^3/uL (1.3-2.9) L 12/10/17 05:27 [place] # (Auto) 0.7 x10^3/uL (0.3-0.8) 12/10/17 05:27 Eos # (Auto) 0.4 x10^3/uL (0.0-0.2) H 12/10/17 05:27 Baso # (Auto) 0.1 X10^3/uL (0.0-0.1) 12/10/17 05:27 Absolute Nucleated RBC 0.0 /100WBC 12/10/17 05:27 Total Counted 100 12/01/17 05:33 Neutrophils % (Manual) 82 % (39-76) H 12/01/17 05:33 Band Neutrophils % 6 % (0-10) 12/01/17 05:33 Lymphocytes % (Manual) 9 % (13-43) L 12/01/17 05:33 Monocytes % (Manual) 3 % (4-9) L 12/01/17 05:33 Plt Morphology Comment Normal (NORMAL) 12/01/17 05:33 RBC Morphology Normal (NORMAL) 12/01/17 05:33 D-Dimer 1990 ng/mL (0-400) H* 11/30/17 14:07 Sodium 141 mmol/L (136-145) 12/10/17 16:00 Corrected Sodium 141 mmol/L (136-145) 12/10/17 16:00 Potassium 4.0 mmol/L (3.5-5.1) 12/10/17 16:00 Chloride 101 mmol/L (98-107) 12/10/17 16:00 Carbon Dioxide 35.6 mmol/L (21-32) H 12/10/17 16:00 BUN 7 mg/dL (7-18) 12/10/17 16:00 Creatinine 1.75 mg/dL (0.70-1.30) H 12/10/17 16:00 Est GFR (MDRD) Af Amer 51 (>60) L 12/10/17 16:00 Est GFR (MDRD) Non-Af 42 (>60) L 12/10/17 16:00 Glucose 116 mg/dL (65-99) H 12/10/17 16:00 Lactic Acid 1.4 mmol/L (0.4-2.0) 11/30/17 14:07 Calcium 9.1 mg/dL (8.5-10.1) 12/10/17 16:00 Corrected Calcium 10.1 mg/dL (8.5-10.1) 12/10/17 05:27 Magnesium 2.2 mg/dL (1.7-2.9) 12/06/17 17:35 Total Bilirubin 0.20 mg/dL (0.2-1.0) 12/10/17 05:27 AST 27 Units/L (15-37) 12/10/17 05:27 ALT 29 Units/L (12-78) 12/10/17 05:27 Alkaline Phosphatase 84 Units/L (46-116) 12/10/17 05:27 C-Reactive Protein 290.00 mg/L (0-3.0) H 11/30/17 13:41 Total Protein 6.9 g/dL (6.4-8.2) 12/10/17 05:27 Albumin 2.2 g/dL (3.4-5.0) L 12/10/17 05:27 Globulin 4.7 g/dL (2.5-4.5) H 12/10/17 05:27 Albumin/Globulin Ratio 0.5 Ratio (1.1-2.1) L 12/10/17 05:27 Vancomycin Trough 19.0 ug/mL (15-20) 12/08/17 06:02 - Plan (1) Cellulitis of right lower leg Status: Acute Plan: BLOOD AND WOUND CULTURES. BP MONITORING, COPD RESP CONSULT. REPEAT AM LABS, VERIFY HOME MEDS. PAIN CONTROL (2) Open wound of right lower extremity Status: Acute Plan: WOUND CARE. IV ATBX, SEE CULTURE REPORT. CONTINUE WOUND CARE PER SURGICAL RECOMMENDATION (3) COPD (chronic obstructive pulmonary disease) Status: Acute (4) Leg abscess Status: Acute Plan: RLE CELLULITIS, CONSULTING SURGEON (5) CHF (congestive heart failure) Status: Acute Plan: IV LASIX X DOSES, HOLDING THIS AFTERNOON DUE TO DECREASED RENAL FUNCTION. I & O, SUPPLEMENTAL O2 PRN (6) SOB (shortness of breath) Status: Acute Plan: HX COPD, CTA CHEST R/O PE NEGATIVE FOR PE
[2017-12-10] MEDS: COLACE CAP 100 MG PO SCH (20:42)
[2017-12-11] MEDS: NS 1000 ML 1,000 ML IV SCH ×3 (01:42→16:04)
[2017-12-11 05:24] LABS: BASOPHILS # (AUTO) 0.1 X10^3/uL (0.0-0.1); BASOPHILS % (AUTO) 0.5 % (0.2-1.0); EOSINOPHILS # (AUTO) 0.3 x10^3/uL (0.0-0.2); EOSINOPHILS % (AUTO) 2.8 % (0.9-2.9); HEMATOCRIT 37.4 % (42.0-54.0); HEMOGLOBIN 12.7 g/dL (13.5-18.0); LYMPHOCYTES % (AUTO) 10.5 % (21.0-51.0); MEAN CORPUSCULAR HEMOGLOBIN 33.4 pg (27.0-34.0); MEAN CORPUSCULAR VOLUME 98.1 fL (80.0-100.0); MEAN PLATELET VOLUME 8.5 fL (7.4-11.0); MONOCYTES # (AUTO) 0.6 x10^3/uL (0.3-0.8); MONOCYTES % (AUTO) 6.4 % (0.0-13.0); NEUTROPHILS # (AUTO) 7.9 x10^3/uL (2.2-4.8); NEUTROPHILS % (AUTO) 79.8 % (42.0-75.0); PLATELET COUNT 347 X10^3/uL (150.0-450.0); RED BLOOD COUNT 3.82 X10^6/uL (4.7-6.0); RED CELL DISTRIBUTION WIDTH 13.1 % (11.6-16.5); WHITE BLOOD COUNT 9.9 X10^3/uL (3.6-10.0)
[2017-12-11 05:51] LABS: ALANINE AMINOTRANSFERASE 24 Units/L (12-78); ALBUMIN 2.3 g/dL (3.4-5.0); ALKALINE PHOSPHATASE 83 Units/L (46-116); ASPARTATE AMINO TRANSFERASE 24 Units/L (15-37); BLOOD UREA NITROGEN 7 mg/dL (7-18); CALCIUM 8.9 mg/dL (8.5-10.1); CARBON DIOXIDE 31.7 mmol/L (21-32); CHLORIDE 103 mmol/L (98-107); COR CA(FOR HYPOALB) 10.3 mg/dL (8.5-10.1); CREATININE 1.68 mg/dL (0.70-1.30); SODIUM 141 mmol/L (136-145); TOTAL PROTEIN 6.9 g/dL (6.4-8.2); eGFR NON BLACK RACES 44 (>60)
[2017-12-11] MEDS: NORCO 10/325 TAB PO PRN ×3 (06:50→22:03)
[2017-12-11] MEDS: LOVENOX INJ 40 MG SYR SC SCH (08:13)
[2017-12-11] MEDS: SILVADENE TOP SCH ×2 (08:13→21:58)
[2017-12-11] MEDS: ZYVOX 600MG IV 600 MG/300 ML BAG IV SCH ×2 (08:13→21:57)
[2017-12-11] MEDS ORDERED: NS 100 ML IV 100 ML IV ONE (08:17)
[2017-12-11] MEDS: PULMICORT NEB TX 0.5 MG NEB SCH ×2 (09:44→22:45)
[2017-12-11] MEDS: DUONEB 0.5 MG/3 MG NEB SCH ×4 (09:44→22:45)
--- NOTE | 2017-12-11 11:16 | CT ---
CT angiogram of the lower extremities without and with contrast Indication: Right lower extremity cellulitis Comparison: 12/03/2017 Technique: CT images of the mid to lower abdomen, pelvis, and bilateral lower extremities were obtain ed without and with IV contrast. Automatic exposure control was utilized. MIP and 3D images were prov ided. Findings: There is discogenic degenerative disease at L5-S1. No acute skeletal abnormality is seen. T here is diffuse subcutaneous edema throughout both lower extremities, right greater than left, worse distally. No discrete collection the deep muscular compartments are grossly unremarkable Bilateral pleural effusions are partially visualized. Within the limitations of arterial phase exam, the visualized liver, spleen, stomach, duodenum, pancr eas, adrenals, and kidneys are unremarkable. The lower GI tract is unremarkable. The prostate is mild ly enlarged. The urinary bladder and rectum are unremarkable. Small bilateral fat containing inguinal hernias are noted. No free fluid or adenopathy. There is moderate aortoiliac atherosclerosis with calcified and noncalcified plaques prominently seen within the distal infrarenal aorta, without aneurysmal dilatation or significant narrowing. The visu alized celiac axis, SMA, bilateral renal arteries, and GERARD are grossly patent. There are scattered ca lcified and noncalcified plaques of the iliac arteries bilaterally, without aneurysm or flow limiting narrowing. There is questionable central hypoattenuation of the right common iliac vein, which could be secondary to early contrast filling with inhomogeneous mixing of the vein, although thrombus is n ot excluded (for example image 79, series 6). Right lower extremity: There is mild atherosclerosis of the common femoral vein, without significant narrowing. The deep femoral and superficial femoral arteries are unremarkable. The popliteal artery i s normal. There is minimal atherosclerosis of the tibioperoneal trunk just proximal to its bifurcatio n, without significant narrowing. There is asymmetric early venous filling of the distal right lower leg, possibly secondary to inflammation. The anterior tibial, posterior tibial, and peroneal arteries are patent, with three-vessel runoff to the foot. Dorsalis pedis is patent. Left lower extremity: The common, deep, and superficial femoral arteries are within normal limits. Th e popliteal, anterior tibial, posterior tibial, and peroneal arteries are patent. Dorsalis pedis xin ry is patent. Impression: 1. Diffuse bilateral lower extremity subcutaneous edema, right greater than left, suggestive for cell ulitis. No discrete collection. 2. Questionable central filling defect of the right common femoral vein. This may be secondary to inh omogeneous contrast mixing, although correlation for DVT is recommended. Consider ultrasound, if ace cated. 3. Mild aortoiliac atherosclerosis, without aneurysm or flow limiting narrowing. Minimal lower extrem ity atherosclerosis. Three-vessel runoff bilaterally. 4. Bilateral pleural effusions, only partially visualized. Mild prostate enlargement and other findin gs as above. Reported By:
[2017-12-11 12:34] VITALS: BMI 32.1
--- NOTE | 2017-12-11 13:33 | PCM.PROG ---
Progress Note - Progress Note for Day of Date: 12/11/17 - Subjective Subjective: 62 WM ER ADMISSION ON 11/30 WITH RLE CELLULITIS. PT CO PAIN TO RLE WITH ERYTHEMA AND EDEMA. WE WILL CONTINUE WOUND CARE, IV ANTIBIOTICS, AND LOVENOX PROPHALAXIS. PT HAS SLIGHT IMPROVEMENT IN CHEST CONGESTION AND RLE EDEMA S/P IV LASIX. CONTINUES WITH PITTING EDEMA TO RIGHT THIGH. WE WILL FOLLOW UP WITH AM LABS AND CONTINUE TO MONITOR PATIENT, CT WITH CONTRAST TO RLE INCLUDING GROIN R/O OBSTRUCTIVE ADENOPATHY PERFORMED THIS AM, REPORT PENDING. ENCOURAGE ORAL HYDRATION - Past Medical Family Social History Past Med/Fam/Surg Hx: No changes since H&P Allergies: Allergies No Known Drug Allergies Allergy (Verified 11/30/17 12:36) - Review of Systems ROS: No change since H&P - Vital Signs and I&O's Vital Signs: Temperature 98.0 F Pulse Rate [Right Brachial] 93 Pulse Rate [Apical] 102 Pulse Rate [Bilateral Brachial 104 ] Pulse Rate 104 Respiratory Rate 20 Blood Pressure [Right Arm] 120/65 Blood Pressure [Left Arm] 157/73 Blood Pressure 122/86 O2 Sat by Pulse Oximetry 96 Intake and Output: Intake & Output 12/09/17 12/10/17 12/11/17 12/12/17 11:59 11:59 11:59 11:59 Intake Total 80561 / 63187 2940 / 2940 4182 / 4182 Balance 11114 / 75272 2940 / 2940 4182 / 4182 - Physical Exam Oriented: Normal Eyes: Normal Ear: Normal Nose: Normal Throat: Normal Respiratory: Diminished, Wheezes Cardiovascular: Normal, Edema : Normal Auscultation: Bowel Sounds: Normal Tenderness: Normal Skin: Other (multiple skin ulcers , no necrosis or abscess formation ..) Musculoskeletal: Right (still having erythema extending above the knee with edema 2 +.. distal pulses present ), Leg Psychiatric: Normal Speech Pattern: Clear, Appropriate - Laboratory and Diagnostics Result Diagrams: 12/11/17 04:17 12/11/17 04:17 Labs: 12/05/17 11:52 Foot - Right Gram Stain - Final 12/05/17 11:52 Foot - Right Wound Culture - Final Staphylococcus Haemolyticus 12/03/17 10:51 Leg - Right Gram Stain - Final 12/03/17 10:51 Leg - Right Wound Culture - Final 12/04/17 23:26 Sputum - Expectorated Sputum Sputum Culture - Final 12/04/17 23:26 Sputum - Expectorated Sputum - Final 12/01/17 05:45 Blood Blood Culture - Final 12/01/17 05:33 Blood Blood Culture - Final 11/30/17 14:13 Blood Blood Culture - Final 11/30/17 14:07 Blood Blood Culture - Final 11/30/17 13:44 Leg - Right Gram Stain - Final 11/30/17 13:44 Leg - Right Wound Culture - Final Laboratory WBC 9.9 X10^3/uL (3.6-10.0) 12/11/17 04:17 RBC 3.82 X10^6/uL (4.7-6.0) L 12/11/17 04:17 Hgb 12.7 g/dL (13.5-18.0) L 12/11/17 04:17 Hct 37.4 % (42.0-54.0) L 12/11/17 04:17 MCV 98.1 fL (80.0-100.0) 12/11/17 04:17 MCH 33.4 pg (27.0-34.0) 12/11/17 04:17 MCHC 34.0 g/dL (33.0-35.0) 12/11/17 04:17 RDW 13.1 % (11.6-16.5) 12/11/17 04:17 Plt Count 347 X10^3/uL (150.0-450.0) 12/11/17 04:17 Plt Count Comment Adequate (ADEQUATE) 12/01/17 05:33 MPV 8.5 fL (7.4-11.0) 12/11/17 04:17 Neut % (Auto) 79.8 % (42.0-75.0) H 12/11/17 04:17 Lymph % (Auto) 10.5 % (21.0-51.0) L 12/11/17 04:17 [place] % (Auto) 6.4 % (0.0-13.0) 12/11/17 04:17 Eos % (Auto) 2.8 % (0.9-2.9) 12/11/17 04:17 Baso % (Auto) 0.5 % (0.2-1.0) 12/11/17 04:17 Neut # (Auto) 7.9 x10^3/uL (2.2-4.8) H 12/11/17 04:17 Lymph # (Auto) 1.0 X10^3/uL (1.3-2.9) L 12/11/17 04:17 [place] # (Auto) 0.6 x10^3/uL (0.3-0.8) 12/11/17 04:17 Eos # (Auto) 0.3 x10^3/uL (0.0-0.2) H 12/11/17 04:17 Baso # (Auto) 0.1 X10^3/uL (0.0-0.1) 12/11/17 04:17 Absolute Nucleated RBC 0.1 /100WBC 12/11/17 04:17 Total Counted 100 12/01/17 05:33 Neutrophils % (Manual) 82 % (39-76) H 12/01/17 05:33 Band Neutrophils % 6 % (0-10) 12/01/17 05:33 Lymphocytes % (Manual) 9 % (13-43) L 12/01/17 05:33 Monocytes % (Manual) 3 % (4-9) L 12/01/17 05:33 Plt Morphology Comment Normal (NORMAL) 12/01/17 05:33 RBC Morphology Normal (NORMAL) 12/01/17 05:33 D-Dimer 1990 ng/mL (0-400) H* 11/30/17 14:07 Sodium 141 mmol/L (136-145) 12/11/17 04:17 Corrected Sodium TNP 12/11/17 04:17 Potassium 3.7 mmol/L (3.5-5.1) 12/11/17 04:17 Chloride 103 mmol/L (98-107) 12/11/17 04:17 Carbon Dioxide 31.7 mmol/L (21-32) 12/11/17 04:17 BUN 7 mg/dL (7-18) 12/11/17 04:17 Creatinine 1.68 mg/dL (0.70-1.30) H 12/11/17 04:17 Est GFR (MDRD) Af Amer 53 (>60) L 12/11/17 04:17 Est GFR (MDRD) Non-Af 44 (>60) L 12/11/17 04:17 Glucose 104 mg/dL (65-99) H 12/11/17 04:17 Lactic Acid 1.4 mmol/L (0.4-2.0) 11/30/17 14:07 Calcium 8.9 mg/dL (8.5-10.1) 12/11/17 04:17 Corrected Calcium 10.3 mg/dL (8.5-10.1) H 12/11/17 04:17 Magnesium 2.2 mg/dL (1.7-2.9) 12/06/17 17:35 Total Bilirubin 0.20 mg/dL (0.2-1.0) 12/11/17 04:17 AST 24 Units/L (15-37) 12/11/17 04:17 ALT 24 Units/L (12-78) 12/11/17 04:17 Alkaline Phosphatase 83 Units/L (46-116) 12/11/17 04:17 C-Reactive Protein 290.00 mg/L (0-3.0) H 11/30/17 13:41 Total Protein 6.9 g/dL (6.4-8.2) 12/11/17 04:17 Albumin 2.3 g/dL (3.4-5.0) L 12/11/17 04:17 Globulin 4.6 g/dL (2.5-4.5) H 12/11/17 04:17 Albumin/Globulin Ratio 0.5 Ratio (1.1-2.1) L 12/11/17 04:17 Vancomycin Trough 19.0 ug/mL (15-20) 12/08/17 06:02 - Plan (1) Cellulitis of right lower leg Status: Acute Plan: BLOOD AND WOUND CULTURES. BP MONITORING, COPD RESP CONSULT. REPEAT AM LABS, VERIFY HOME MEDS. PAIN CONTROL (2) Open wound of right lower extremity Status: Acute Plan: WOUND CARE. IV ATBX, SEE CULTURE REPORT. CONTINUE WOUND CARE PER SURGICAL RECOMMENDATION (3) COPD (chronic obstructive pulmonary disease) Status: Acute (4) Leg abscess Status: Acute Plan: RLE CELLULITIS, CONSULTING SURGEON (5) CHF (congestive heart failure) Status: Acute Plan: IV LASIX X DOSES, HOLDING THIS AFTERNOON DUE TO DECREASED RENAL FUNCTION. I & O, SUPPLEMENTAL O2 PRN (6) SOB (shortness of breath) Status: Acute Plan: HX COPD, CTA CHEST R/O PE NEGATIVE FOR PE
--- NOTE | 2017-12-11 19:01 | DR.PROGNOT ---
Hospital Progress Notes - Progress Note for Day of: Progress Note Date: 12/11/17 - Chief Complaint Chief Complaint: no changes with moderate pain as before ,. still having seepage from posterior and lateral aspect of Rt leg . CTA showed no obstruction . CBC and CMP are normal - Past Medical Family Social History Past Med/Fam/Surg Hx: No changes since H&P Allergies: Allergies No Known Drug Allergies Allergy (Verified 11/30/17 12:36) - Review Of Systems ROS: No change since H&P - Vital Signs Vital Signs: Temperature 98.0 F Pulse Rate [Right Brachial] 101 Pulse Rate [Apical] 102 Pulse Rate [Bilateral Brachial 104 ] Pulse Rate 104 Respiratory Rate 20 Blood Pressure [Right Arm] 118/71 Blood Pressure [Left Arm] 157/73 Blood Pressure 122/86 O2 Sat by Pulse Oximetry 95 - Physical Exam Oriented: Normal Eyes: Normal Ear: Normal Nose: Normal Throat: Normal Respiratory: Diminished, Wheezes Cardiovascular: Normal, Edema : Normal GI:Auscultation: Normal GI:Palpation: Normal GI: Tenderness: Normal Skin: Other (multiple skin ulcers , no necrosis or abscess formation ..) Musculoskeletal: Right (still having erythema extending above the knee with edema 2 +.. distal pulses present ), Leg Psychiatric: Normal Speech Pattern: Clear, Appropriate - Laboratory and Diagnostics Result Diagrams: 12/11/17 04:17 12/11/17 04:17 Labs: 12/05/17 11:52 Foot - Right Gram Stain - Final 12/05/17 11:52 Foot - Right Wound Culture - Final Staphylococcus Haemolyticus 12/03/17 10:51 Leg - Right Gram Stain - Final 12/03/17 10:51 Leg - Right Wound Culture - Final 12/04/17 23:26 Sputum - Expectorated Sputum Sputum Culture - Final 12/04/17 23:26 Sputum - Expectorated Sputum - Final 12/01/17 05:45 Blood Blood Culture - Final 12/01/17 05:33 Blood Blood Culture - Final 11/30/17 14:13 Blood Blood Culture - Final 11/30/17 14:07 Blood Blood Culture - Final 11/30/17 13:44 Leg - Right Gram Stain - Final 11/30/17 13:44 Leg - Right Wound Culture - Final Laboratory WBC 9.9 X10^3/uL (3.6-10.0) 12/11/17 04:17 RBC 3.82 X10^6/uL (4.7-6.0) L 12/11/17 04:17 Hgb 12.7 g/dL (13.5-18.0) L 12/11/17 04:17 Hct 37.4 % (42.0-54.0) L 12/11/17 04:17 MCV 98.1 fL (80.0-100.0) 12/11/17 04:17 MCH 33.4 pg (27.0-34.0) 12/11/17 04:17 MCHC 34.0 g/dL (33.0-35.0) 12/11/17 04:17 RDW 13.1 % (11.6-16.5) 12/11/17 04:17 Plt Count 347 X10^3/uL (150.0-450.0) 12/11/17 04:17 Plt Count Comment Adequate (ADEQUATE) 12/01/17 05:33 MPV 8.5 fL (7.4-11.0) 12/11/17 04:17 Neut % (Auto) 79.8 % (42.0-75.0) H 12/11/17 04:17 Lymph % (Auto) 10.5 % (21.0-51.0) L 12/11/17 04:17 [place] % (Auto) 6.4 % (0.0-13.0) 12/11/17 04:17 Eos % (Auto) 2.8 % (0.9-2.9) 12/11/17 04:17 Baso % (Auto) 0.5 % (0.2-1.0) 12/11/17 04:17 Neut # (Auto) 7.9 x10^3/uL (2.2-4.8) H 12/11/17 04:17 Lymph # (Auto) 1.0 X10^3/uL (1.3-2.9) L 12/11/17 04:17 [place] # (Auto) 0.6 x10^3/uL (0.3-0.8) 12/11/17 04:17 Eos # (Auto) 0.3 x10^3/uL (0.0-0.2) H 12/11/17 04:17 Baso # (Auto) 0.1 X10^3/uL (0.0-0.1) 12/11/17 04:17 Absolute Nucleated RBC 0.1 /100WBC 12/11/17 04:17 Total Counted 100 12/01/17 05:33 Neutrophils % (Manual) 82 % (39-76) H 12/01/17 05:33 Band Neutrophils % 6 % (0-10) 12/01/17 05:33 Lymphocytes % (Manual) 9 % (13-43) L 12/01/17 05:33 Monocytes % (Manual) 3 % (4-9) L 12/01/17 05:33 Plt Morphology Comment Normal (NORMAL) 12/01/17 05:33 RBC Morphology Normal (NORMAL) 12/01/17 05:33 D-Dimer 1990 ng/mL (0-400) H* 11/30/17 14:07 Sodium 141 mmol/L (136-145) 12/11/17 04:17 Corrected Sodium TNP 12/11/17 04:17 Potassium 3.7 mmol/L (3.5-5.1) 12/11/17 04:17 Chloride 103 mmol/L (98-107) 12/11/17 04:17 Carbon Dioxide 31.7 mmol/L (21-32) 12/11/17 04:17 BUN 7 mg/dL (7-18) 12/11/17 04:17 Creatinine 1.68 mg/dL (0.70-1.30) H 12/11/17 04:17 Est GFR (MDRD) Af Amer 53 (>60) L 12/11/17 04:17 Est GFR (MDRD) Non-Af 44 (>60) L 12/11/17 04:17 Glucose 104 mg/dL (65-99) H 12/11/17 04:17 Lactic Acid 1.4 mmol/L (0.4-2.0) 11/30/17 14:07 Calcium 8.9 mg/dL (8.5-10.1) 12/11/17 04:17 Corrected Calcium 10.3 mg/dL (8.5-10.1) H 12/11/17 04:17 Magnesium 2.2 mg/dL (1.7-2.9) 12/06/17 17:35 Total Bilirubin 0.20 mg/dL (0.2-1.0) 12/11/17 04:17 AST 24 Units/L (15-37) 12/11/17 04:17 ALT 24 Units/L (12-78) 12/11/17 04:17 Alkaline Phosphatase 83 Units/L (46-116) 12/11/17 04:17 C-Reactive Protein 290.00 mg/L (0-3.0) H 11/30/17 13:41 Total Protein 6.9 g/dL (6.4-8.2) 12/11/17 04:17 Albumin 2.3 g/dL (3.4-5.0) L 12/11/17 04:17 Globulin 4.6 g/dL (2.5-4.5) H 12/11/17 04:17 Albumin/Globulin Ratio 0.5 Ratio (1.1-2.1) L 12/11/17 04:17 Vancomycin Trough 19.0 ug/mL (15-20) 12/08/17 06:02 - Assessment and Plan 1: still extensive cellulitis Rt leg. no abscess formation or necrosis. on IV ATB , local Silvadene ,leg elevation and DVT prophylaxis. maybe switch to Oxicillin one Gm IV q 4 hours. .. - Problem Patient Problems: Patient Problems Cellulitis of right lower leg (Acute) L03.115 Open wound of right lower extremity (Acute) S81.801A COPD (chronic obstructive pulmonary disease) (Acute) J44.9 Leg abscess (Acute) L02.419 CHF (congestive heart failure) (Acute) I50.9 SOB (shortness of breath) (Acute) R06.02
[2017-12-11] MEDS: COLACE CAP 100 MG PO SCH (21:57)
[2017-12-12] MEDS: NORCO 10/325 TAB PO PRN ×2 (03:21→19:15)
[2017-12-12] MEDS: PROVENTIL NEB TX 0.083% 2.5MG/ 3ML IN PRN (04:45)
[2017-12-12 06:40] LABS: BASOPHILS # (AUTO) 0.1 X10^3/uL (0.0-0.1); BASOPHILS % (AUTO) 0.7 % (0.2-1.0); EOSINOPHILS # (AUTO) 0.3 x10^3/uL (0.0-0.2); EOSINOPHILS % (AUTO) 2.5 % (0.9-2.9); HEMATOCRIT 38.7 % (42.0-54.0); HEMOGLOBIN 13.1 g/dL (13.5-18.0); LYMPHOCYTES # (AUTO) 1.4 X10^3/uL (1.3-2.9); LYMPHOCYTES % (AUTO) 12.1 % (21.0-51.0); MEAN CORPUSCULAR HEMOGLOBIN 33.3 pg (27.0-34.0); MEAN CORPUSCULAR HGB CONC 33.9 g/dL (33.0-35.0); MEAN CORPUSCULAR VOLUME 98.3 fL (80.0-100.0); MEAN PLATELET VOLUME 8.8 fL (7.4-11.0); MONOCYTES # (AUTO) 0.7 x10^3/uL (0.3-0.8); NEUTROPHILS # (AUTO) 9.3 x10^3/uL (2.2-4.8); NEUTROPHILS % (AUTO) 78.7 % (42.0-75.0); PLATELET COUNT 367 X10^3/uL (150.0-450.0); RED BLOOD COUNT 3.94 X10^6/uL (4.7-6.0); RED CELL DISTRIBUTION WIDTH 13.2 % (11.6-16.5); WHITE BLOOD COUNT 11.8 X10^3/uL (3.6-10.0)
[2017-12-12 06:50] LABS: ALBUMIN 2.5 g/dL (3.4-5.0); CALCIUM 9.2 mg/dL (8.5-10.1); CARBON DIOXIDE 29.9 mmol/L (21-32); COR CA(FOR HYPOALB) 10.4 mg/dL (8.5-10.1); CREATININE 1.86 mg/dL (0.70-1.30); TOTAL PROTEIN 7.7 g/dL (6.4-8.2)
[2017-12-12 07:25] LABS: ANISOCYTOSIS 1+; PLATELET MORPHOLOGY COMMENT NORMAL (NORMAL); STOMATOCYTES 2+
[2017-12-12] MEDS: NS 1000 ML 1,000 ML IV SCH ×3 (08:08→16:14)
[2017-12-12] MEDS: LOVENOX INJ 40 MG SYR SC SCH (08:10)
[2017-12-12] MEDS: ZYVOX 600MG IV 600 MG/300 ML BAG IV SCH ×2 (08:11→20:32)
[2017-12-12] MEDS: SILVADENE TOP SCH ×2 (08:11→20:32)
[2017-12-12] MEDS: PULMICORT NEB TX 0.5 MG NEB SCH ×2 (08:49→21:09)
[2017-12-12] MEDS: DUONEB 0.5 MG/3 MG NEB SCH ×4 (08:49→21:09)
[2017-12-12] MEDS ORDERED: CONSULT PHARMACY - ANTIBIOTIC XX SCH (09:00)
--- NOTE | 2017-12-12 09:59 | DR.PROGNOT ---
Hospital Progress Notes - Progress Note for Day of: Progress Note Date: 12/12/17 - Chief Complaint Chief Complaint: no changes with moderate pain as before ,. still having seepage from posterior and lateral aspect of Rt leg . CTA showed no obstruction . CBC and CMP are normal - Past Medical Family Social History Past Med/Fam/Surg Hx: No changes since H&P Allergies: Allergies No Known Drug Allergies Allergy (Verified 11/30/17 12:36) - Review Of Systems ROS: No change since H&P - Vital Signs Vital Signs: Temperature 98.4 F Pulse Rate [Right Brachial] 90 Pulse Rate [Apical] 102 Pulse Rate [Bilateral Brachial 104 ] Pulse Rate 101 Respiratory Rate 20 Blood Pressure [Right Arm] 128/67 Blood Pressure [Left Arm] 157/73 Blood Pressure 122/86 O2 Sat by Pulse Oximetry 98 - Physical Exam Oriented: Normal Eyes: Normal Ear: Normal Nose: Normal Throat: Normal Respiratory: Diminished, Wheezes Cardiovascular: Normal, Edema : Normal GI:Auscultation: Normal GI:Palpation: Normal GI: Tenderness: Normal Skin: Other (multiple skin ulcers , no necrosis or abscess formation ..) Musculoskeletal: Right (still having erythema extending above the knee with edema 2 +.. distal pulses present ), Leg Psychiatric: Normal Speech Pattern: Clear, Appropriate - Laboratory and Diagnostics Result Diagrams: 12/12/17 05:45 12/12/17 05:45 Labs: 12/05/17 11:52 Foot - Right Gram Stain - Final 12/05/17 11:52 Foot - Right Wound Culture - Final Staphylococcus Haemolyticus 12/03/17 10:51 Leg - Right Gram Stain - Final 12/03/17 10:51 Leg - Right Wound Culture - Final 12/04/17 23:26 Sputum - Expectorated Sputum Sputum Culture - Final 12/04/17 23:26 Sputum - Expectorated Sputum - Final 12/01/17 05:45 Blood Blood Culture - Final 12/01/17 05:33 Blood Blood Culture - Final 11/30/17 14:13 Blood Blood Culture - Final 11/30/17 14:07 Blood Blood Culture - Final 11/30/17 13:44 Leg - Right Gram Stain - Final 11/30/17 13:44 Leg - Right Wound Culture - Final Laboratory WBC 11.8 X10^3/uL (3.6-10.0) H 12/12/17 05:45 RBC 3.94 X10^6/uL (4.7-6.0) L 12/12/17 05:45 Hgb 13.1 g/dL (13.5-18.0) L 12/12/17 05:45 Hct 38.7 % (42.0-54.0) L 12/12/17 05:45 MCV 98.3 fL (80.0-100.0) 12/12/17 05:45 MCH 33.3 pg (27.0-34.0) 12/12/17 05:45 MCHC 33.9 g/dL (33.0-35.0) 12/12/17 05:45 RDW 13.2 % (11.6-16.5) 12/12/17 05:45 Plt Count 367 X10^3/uL (150.0-450.0) 12/12/17 05:45 Plt Count Comment Adequate (ADEQUATE) 12/12/17 05:45 MPV 8.8 fL (7.4-11.0) 12/12/17 05:45 Neut % (Auto) 78.7 % (42.0-75.0) H 12/12/17 05:45 Lymph % (Auto) 12.1 % (21.0-51.0) L 12/12/17 05:45 [place] % (Auto) 6.0 % (0.0-13.0) 12/12/17 05:45 Eos % (Auto) 2.5 % (0.9-2.9) 12/12/17 05:45 Baso % (Auto) 0.7 % (0.2-1.0) 12/12/17 05:45 Neut # (Auto) 9.3 x10^3/uL (2.2-4.8) H 12/12/17 05:45 Lymph # (Auto) 1.4 X10^3/uL (1.3-2.9) 12/12/17 05:45 [place] # (Auto) 0.7 x10^3/uL (0.3-0.8) 12/12/17 05:45 Eos # (Auto) 0.3 x10^3/uL (0.0-0.2) H 12/12/17 05:45 Baso # (Auto) 0.1 X10^3/uL (0.0-0.1) 12/12/17 05:45 Absolute Nucleated RBC 0.0 /100WBC 12/12/17 05:45 Total Counted 100 12/01/17 05:33 Neutrophils % (Manual) 82 % (39-76) H 12/01/17 05:33 Band Neutrophils % 6 % (0-10) 12/01/17 05:33 Lymphocytes % (Manual) 9 % (13-43) L 12/01/17 05:33 Monocytes % (Manual) 3 % (4-9) L 12/01/17 05:33 Plt Morphology Comment Normal (NORMAL) 12/12/17 05:45 RBC Morphology Abnormal (NORMAL) 12/12/17 05:45 Anisocytosis 1+ A 12/12/17 05:45 Stomatocytes 2+ A 12/12/17 05:45 D-Dimer 1990 ng/mL (0-400) H* 11/30/17 14:07 Sodium 140 mmol/L (136-145) 12/12/17 05:45 Corrected Sodium 140 mmol/L (136-145) 12/12/17 05:45 Potassium 3.5 mmol/L (3.5-5.1) 12/12/17 05:45 Chloride 102 mmol/L (98-107) 12/12/17 05:45 Carbon Dioxide 29.9 mmol/L (21-32) 12/12/17 05:45 BUN 10 mg/dL (7-18) 12/12/17 05:45 Creatinine 1.86 mg/dL (0.70-1.30) H 12/12/17 05:45 Est GFR (MDRD) Af Amer 47 (>60) L 12/12/17 05:45 Est GFR (MDRD) Non-Af 39 (>60) L 12/12/17 05:45 Glucose 120 mg/dL (65-99) H 12/12/17 05:45 Lactic Acid 1.4 mmol/L (0.4-2.0) 11/30/17 14:07 Calcium 9.2 mg/dL (8.5-10.1) 12/12/17 05:45 Corrected Calcium 10.4 mg/dL (8.5-10.1) H 12/12/17 05:45 Magnesium 2.2 mg/dL (1.7-2.9) 12/06/17 17:35 Total Bilirubin 0.20 mg/dL (0.2-1.0) 12/12/17 05:45 AST 22 Units/L (15-37) 12/12/17 05:45 ALT 23 Units/L (12-78) 12/12/17 05:45 Alkaline Phosphatase 90 Units/L (46-116) 12/12/17 05:45 C-Reactive Protein 290.00 mg/L (0-3.0) H 11/30/17 13:41 Total Protein 7.7 g/dL (6.4-8.2) 12/12/17 05:45 Albumin 2.5 g/dL (3.4-5.0) L 12/12/17 05:45 Globulin 5.2 g/dL (2.5-4.5) H 12/12/17 05:45 Albumin/Globulin Ratio 0.5 Ratio (1.1-2.1) L 12/12/17 05:45 Vancomycin Trough 19.0 ug/mL (15-20) 12/08/17 06:02 - Assessment and Plan 1: still extensive cellulitis Rt leg. no abscess formation or necrosis. on IV ATB , local Silvadene ,leg elevation and DVT prophylaxis. maybe switch to Nafcillin two Gm IV q 4 hours . .. - Problem Patient Problems: Patient Problems Cellulitis of right lower leg (Acute) L03.115 Open wound of right lower extremity (Acute) S81.801A COPD (chronic obstructive pulmonary disease) (Acute) J44.9 Leg abscess (Acute) L02.419 CHF (congestive heart failure) (Acute) I50.9 SOB (shortness of breath) (Acute) R06.02
[2017-12-12] MEDS: NAFCILLIN SODIUM 2 G in NS 100 ML IV 100 ML IV SCH ×3 (12:00→20:32)
[2017-12-12] MEDS: COLACE CAP 100 MG PO SCH (20:32)
[2017-12-13] MEDS: NS 1000 ML 1,000 ML IV SCH ×2 (03:50→11:18)
[2017-12-13] MEDS: NAFCILLIN SODIUM 2 G in NS 100 ML IV 100 ML IV SCH ×7 (03:54→20:33)
[2017-12-13] MEDS: NORCO 10/325 TAB PO PRN ×4 (04:22→22:06)
[2017-12-13] MEDS: PROVENTIL NEB TX 0.083% 2.5MG/ 3ML IN PRN (05:44)
[2017-12-13 06:23] LABS: BASOPHILS % (AUTO) 0.7 % (0.2-1.0); EOSINOPHILS # (AUTO) 0.2 x10^3/uL (0.0-0.2); EOSINOPHILS % (AUTO) 2.7 % (0.9-2.9); HEMATOCRIT 34.1 % (42.0-54.0); HEMOGLOBIN 11.8 g/dL (13.5-18.0); LYMPHOCYTES % (AUTO) 14.7 % (21.0-51.0); MEAN CORPUSCULAR HEMOGLOBIN 33.7 pg (27.0-34.0); MEAN CORPUSCULAR HGB CONC 34.5 g/dL (33.0-35.0); MEAN CORPUSCULAR VOLUME 97.4 fL (80.0-100.0); MEAN PLATELET VOLUME 8.1 fL (7.4-11.0); MONOCYTES # (AUTO) 0.5 x10^3/uL (0.3-0.8); NEUTROPHILS # (AUTO) 5.2 x10^3/uL (2.2-4.8); NEUTROPHILS % (AUTO) 74.9 % (42.0-75.0); PLATELET COUNT 293 X10^3/uL (150.0-450.0); RED CELL DISTRIBUTION WIDTH 13.3 % (11.6-16.5)
[2017-12-13 06:41] LABS: ALBUMIN 2.2 g/dL (3.4-5.0); CALCIUM 8.6 mg/dL (8.5-10.1); CARBON DIOXIDE 32.8 mmol/L (21-32); CREATININE 1.79 mg/dL (0.70-1.30); TOTAL PROTEIN 6.6 g/dL (6.4-8.2)
--- NOTE | 2017-12-13 08:24 | DR.PROGNOT ---
Hospital Progress Notes - Progress Note for Day of: Progress Note Date: 12/13/17 - Chief Complaint Chief Complaint: slight improvement with less swelling and pain as before ,. still having seepage from posterior and lateral aspect of Rt leg . CTA showed no obstruction . CBC and CMP are normal - Past Medical Family Social History Past Med/Fam/Surg Hx: No changes since H&P Allergies: Allergies No Known Drug Allergies Allergy (Verified 11/30/17 12:36) - Review Of Systems ROS: No change since H&P - Vital Signs Vital Signs: Temperature 98.3 F Pulse Rate [Right Brachial] 97 Pulse Rate [Apical] 102 Pulse Rate [Bilateral Brachial 104 ] Pulse Rate 95 Respiratory Rate 20 Blood Pressure [Right Arm] 127/73 Blood Pressure [Left Arm] 157/73 Blood Pressure 122/86 O2 Sat by Pulse Oximetry 98 - Physical Exam Oriented: Normal Eyes: Normal Ear: Normal Nose: Normal Throat: Normal Respiratory: Diminished, Wheezes Cardiovascular: Normal, Edema : Normal GI:Auscultation: Normal GI:Palpation: Normal GI: Tenderness: Normal Skin: Other (multiple skin ulcers , no necrosis or abscess formation ..) Musculoskeletal: Right (still having erythema extending above the knee with edema 2 +.. distal pulses present ), Leg Psychiatric: Normal Speech Pattern: Clear, Appropriate - Laboratory and Diagnostics Result Diagrams: 12/13/17 05:30 12/13/17 05:30 Labs: 12/05/17 11:52 Foot - Right Gram Stain - Final 12/05/17 11:52 Foot - Right Wound Culture - Final Staphylococcus Haemolyticus 12/03/17 10:51 Leg - Right Gram Stain - Final 12/03/17 10:51 Leg - Right Wound Culture - Final 12/04/17 23:26 Sputum - Expectorated Sputum Sputum Culture - Final 12/04/17 23:26 Sputum - Expectorated Sputum - Final 12/01/17 05:45 Blood Blood Culture - Final 12/01/17 05:33 Blood Blood Culture - Final 11/30/17 14:13 Blood Blood Culture - Final 11/30/17 14:07 Blood Blood Culture - Final 11/30/17 13:44 Leg - Right Gram Stain - Final 11/30/17 13:44 Leg - Right Wound Culture - Final Laboratory WBC 7.0 X10^3/uL (3.6-10.0) 12/13/17 05:30 RBC 3.50 X10^6/uL (4.7-6.0) L 12/13/17 05:30 Hgb 11.8 g/dL (13.5-18.0) L 12/13/17 05:30 Hct 34.1 % (42.0-54.0) L 12/13/17 05:30 MCV 97.4 fL (80.0-100.0) 12/13/17 05:30 MCH 33.7 pg (27.0-34.0) 12/13/17 05:30 MCHC 34.5 g/dL (33.0-35.0) 12/13/17 05:30 RDW 13.3 % (11.6-16.5) 12/13/17 05:30 Plt Count 293 X10^3/uL (150.0-450.0) 12/13/17 05:30 Plt Count Comment Adequate (ADEQUATE) 12/12/17 05:45 MPV 8.1 fL (7.4-11.0) 12/13/17 05:30 Neut % (Auto) 74.9 % (42.0-75.0) 12/13/17 05:30 Lymph % (Auto) 14.7 % (21.0-51.0) L 12/13/17 05:30 [place] % (Auto) 7.0 % (0.0-13.0) 12/13/17 05:30 Eos % (Auto) 2.7 % (0.9-2.9) 12/13/17 05:30 Baso % (Auto) 0.7 % (0.2-1.0) 12/13/17 05:30 Neut # (Auto) 5.2 x10^3/uL (2.2-4.8) H 12/13/17 05:30 Lymph # (Auto) 1.0 X10^3/uL (1.3-2.9) L 12/13/17 05:30 [place] # (Auto) 0.5 x10^3/uL (0.3-0.8) 12/13/17 05:30 Eos # (Auto) 0.2 x10^3/uL (0.0-0.2) 12/13/17 05:30 Baso # (Auto) 0.0 X10^3/uL (0.0-0.1) 12/13/17 05:30 Absolute Nucleated RBC 0.1 /100WBC 12/13/17 05:30 Total Counted 100 12/01/17 05:33 Neutrophils % (Manual) 82 % (39-76) H 12/01/17 05:33 Band Neutrophils % 6 % (0-10) 12/01/17 05:33 Lymphocytes % (Manual) 9 % (13-43) L 12/01/17 05:33 Monocytes % (Manual) 3 % (4-9) L 12/01/17 05:33 Plt Morphology Comment Normal (NORMAL) 12/12/17 05:45 RBC Morphology Abnormal (NORMAL) 12/12/17 05:45 Anisocytosis 1+ A 12/12/17 05:45 Stomatocytes 2+ A 12/12/17 05:45 D-Dimer 1990 ng/mL (0-400) H* 11/30/17 14:07 Sodium 141 mmol/L (136-145) 12/13/17 05:30 Corrected Sodium 142 mmol/L (136-145) 12/13/17 05:30 Potassium 3.3 mmol/L (3.5-5.1) L 12/13/17 05:30 Chloride 102 mmol/L (98-107) 12/13/17 05:30 Carbon Dioxide 32.8 mmol/L (21-32) H 12/13/17 05:30 BUN 10 mg/dL (7-18) 12/13/17 05:30 Creatinine 1.79 mg/dL (0.70-1.30) H 12/13/17 05:30 Est GFR (MDRD) Af Amer 49 (>60) L 12/13/17 05:30 Est GFR (MDRD) Non-Af 41 (>60) L 12/13/17 05:30 Glucose 159 mg/dL (65-99) H 12/13/17 05:30 Hemoglobin A1c 6.3 % 12/12/17 05:45 Lactic Acid 1.4 mmol/L (0.4-2.0) 11/30/17 14:07 Calcium 8.6 mg/dL (8.5-10.1) 12/13/17 05:30 Corrected Calcium 10.0 mg/dL (8.5-10.1) 12/13/17 05:30 Magnesium 2.2 mg/dL (1.7-2.9) 12/06/17 17:35 Total Bilirubin 0.40 mg/dL (0.2-1.0) 12/13/17 05:30 AST 19 Units/L (15-37) 12/13/17 05:30 ALT 13 Units/L (12-78) 12/13/17 05:30 Alkaline Phosphatase 74 Units/L (46-116) 12/13/17 05:30 C-Reactive Protein 290.00 mg/L (0-3.0) H 11/30/17 13:41 Total Protein 6.6 g/dL (6.4-8.2) 12/13/17 05:30 Albumin 2.2 g/dL (3.4-5.0) L 12/13/17 05:30 Globulin 4.4 g/dL (2.5-4.5) 12/13/17 05:30 Albumin/Globulin Ratio 0.5 Ratio (1.1-2.1) L 12/13/17 05:30 Vancomycin Trough 19.0 ug/mL (15-20) 12/08/17 06:02 - Assessment and Plan 1: still extensive cellulitis Rt leg. no abscess formation or necrosis. on IV Nafcillin , local Silvadene ,leg elevation and DVT prophylaxis. same Nafcillin for now and local care.. .. - Problem Patient Problems: Patient Problems Cellulitis of right lower leg (Acute) L03.115 Open wound of right lower extremity (Acute) S81.801A COPD (chronic obstructive pulmonary disease) (Acute) J44.9 Leg abscess (Acute) L02.419 CHF (congestive heart failure) (Acute) I50.9 SOB (shortness of breath) (Acute) R06.02
[2017-12-13] MEDS: DUONEB 0.5 MG/3 MG NEB SCH ×4 (08:47→20:22)
[2017-12-13] MEDS: PULMICORT NEB TX 0.5 MG NEB SCH ×2 (08:47→20:22)
[2017-12-13] MEDS: ZYVOX 600MG IV 600 MG/300 ML BAG IV SCH ×2 (08:48→21:34)
[2017-12-13] MEDS: LOVENOX INJ 40 MG SYR SC SCH (08:48)
[2017-12-13] MEDS: SILVADENE TOP SCH ×2 (08:49→21:34)
[2017-12-13] MEDS: ACTOS PO SCH (11:18)
[2017-12-13] MEDS: K-LYTE EFFERVESCENT PO PRN (13:59)
[2017-12-13] MEDS: COLACE CAP 100 MG PO SCH (21:34)
[2017-12-14] MEDS: NAFCILLIN SODIUM 2 G in NS 100 ML IV 100 ML IV SCH ×7 (03:51→19:35)
[2017-12-14] MEDS: PROVENTIL NEB TX 0.083% 2.5MG/ 3ML IN PRN (04:01)
[2017-12-14 06:23] LABS: BLOOD UREA NITROGEN 10 mg/dL (7-18); CALCIUM 8.7 mg/dL (8.5-10.1); CARBON DIOXIDE 34.2 mmol/L (21-32); CHLORIDE 101 mmol/L (98-107); SODIUM 140 mmol/L (136-145); eGFR NON BLACK RACES 41 (>60)
[2017-12-14 06:25] LABS: BASOPHILS # (AUTO) 0.1 X10^3/uL (0.0-0.1); EOSINOPHILS # (AUTO) 0.2 x10^3/uL (0.0-0.2); EOSINOPHILS % (AUTO) 2.8 % (0.9-2.9); HEMATOCRIT 35.8 % (42.0-54.0); HEMOGLOBIN 12.1 g/dL (13.5-18.0); LYMPHOCYTES # (AUTO) 1.2 X10^3/uL (1.3-2.9); LYMPHOCYTES % (AUTO) 17.8 % (21.0-51.0); MEAN CORPUSCULAR HGB CONC 33.9 g/dL (33.0-35.0); MEAN CORPUSCULAR VOLUME 97.5 fL (80.0-100.0); MEAN PLATELET VOLUME 8.1 fL (7.4-11.0); MONOCYTES # (AUTO) 0.4 x10^3/uL (0.3-0.8); NEUTROPHILS # (AUTO) 4.9 x10^3/uL (2.2-4.8); NEUTROPHILS % (AUTO) 72.4 % (42.0-75.0); PLATELET COUNT 284 X10^3/uL (150.0-450.0); RED BLOOD COUNT 3.67 X10^6/uL (4.7-6.0); RED CELL DISTRIBUTION WIDTH 13.4 % (11.6-16.5); WHITE BLOOD COUNT 6.8 X10^3/uL (3.6-10.0)
[2017-12-14] MEDS: PULMICORT NEB TX 0.5 MG NEB SCH ×2 (08:44→21:53)
[2017-12-14] MEDS: DUONEB 0.5 MG/3 MG NEB SCH ×4 (08:44→21:53)
[2017-12-14] MEDS: NORCO 10/325 TAB PO PRN ×2 (08:48→22:06)
[2017-12-14] MEDS: ZYVOX 600MG IV 600 MG/300 ML BAG IV SCH ×2 (08:48→22:06)
[2017-12-14] MEDS: LOVENOX INJ 40 MG SYR SC SCH (08:48)
[2017-12-14] MEDS: ACTOS PO SCH (08:49)
[2017-12-14] MEDS: SILVADENE TOP SCH ×2 (08:49→21:06)
--- NOTE | 2017-12-14 09:35 | DR.PROGNOT ---
Hospital Progress Notes - Progress Note for Day of: Progress Note Date: 12/14/17 - Chief Complaint Chief Complaint: improving with less swelling and less erythema ,. still having seepage from posterior and lateral aspect of Rt leg . CBC and CMP are normal - Past Medical Family Social History Past Med/Fam/Surg Hx: No changes since H&P Allergies: Allergies No Known Drug Allergies Allergy (Verified 11/30/17 12:36) - Review Of Systems ROS: No change since H&P - Vital Signs Vital Signs: Temperature 98.4 F Pulse Rate [Right Brachial] 101 Pulse Rate [Apical] 102 Pulse Rate [Bilateral Brachial 104 ] Pulse Rate 118 Respiratory Rate 20 Blood Pressure [Right Arm] 126/72 Blood Pressure [Left Arm] 157/73 Blood Pressure 122/86 O2 Sat by Pulse Oximetry 94 - Physical Exam Oriented: Normal Eyes: Normal Ear: Normal Nose: Normal Throat: Normal Respiratory: Diminished, Wheezes Cardiovascular: Normal, Edema : Normal GI:Auscultation: Normal GI:Palpation: Normal GI: Tenderness: Normal Skin: Other (multiple skin ulcers , no necrosis or abscess formation ..) Musculoskeletal: Right (still having erythema extending above the knee with edema 2 +.. distal pulses present ), Leg Psychiatric: Normal Speech Pattern: Clear, Appropriate - Laboratory and Diagnostics Result Diagrams: 12/14/17 05:25 12/14/17 05:25 Labs: 12/05/17 11:52 Foot - Right Gram Stain - Final 12/05/17 11:52 Foot - Right Wound Culture - Final Staphylococcus Haemolyticus 12/03/17 10:51 Leg - Right Gram Stain - Final 12/03/17 10:51 Leg - Right Wound Culture - Final 12/04/17 23:26 Sputum - Expectorated Sputum Sputum Culture - Final 12/04/17 23:26 Sputum - Expectorated Sputum - Final 12/01/17 05:45 Blood Blood Culture - Final 12/01/17 05:33 Blood Blood Culture - Final 11/30/17 14:13 Blood Blood Culture - Final 11/30/17 14:07 Blood Blood Culture - Final 11/30/17 13:44 Leg - Right Gram Stain - Final 11/30/17 13:44 Leg - Right Wound Culture - Final Laboratory WBC 6.8 X10^3/uL (3.6-10.0) 12/14/17 05:25 RBC 3.67 X10^6/uL (4.7-6.0) L 12/14/17 05:25 Hgb 12.1 g/dL (13.5-18.0) L 12/14/17 05:25 Hct 35.8 % (42.0-54.0) L 12/14/17 05:25 MCV 97.5 fL (80.0-100.0) 12/14/17 05:25 MCH 33.0 pg (27.0-34.0) 12/14/17 05:25 MCHC 33.9 g/dL (33.0-35.0) 12/14/17 05:25 RDW 13.4 % (11.6-16.5) 12/14/17 05:25 Plt Count 284 X10^3/uL (150.0-450.0) 12/14/17 05:25 Plt Count Comment Adequate (ADEQUATE) 12/12/17 05:45 MPV 8.1 fL (7.4-11.0) 12/14/17 05:25 Neut % (Auto) 72.4 % (42.0-75.0) 12/14/17 05:25 Lymph % (Auto) 17.8 % (21.0-51.0) L 12/14/17 05:25 [place] % (Auto) 6.0 % (0.0-13.0) 12/14/17 05:25 Eos % (Auto) 2.8 % (0.9-2.9) 12/14/17 05:25 Baso % (Auto) 1.0 % (0.2-1.0) 12/14/17 05:25 Neut # (Auto) 4.9 x10^3/uL (2.2-4.8) H 12/14/17 05:25 Lymph # (Auto) 1.2 X10^3/uL (1.3-2.9) L 12/14/17 05:25 [place] # (Auto) 0.4 x10^3/uL (0.3-0.8) 12/14/17 05:25 Eos # (Auto) 0.2 x10^3/uL (0.0-0.2) 12/14/17 05:25 Baso # (Auto) 0.1 X10^3/uL (0.0-0.1) 12/14/17 05:25 Absolute Nucleated RBC 0.0 /100WBC 12/14/17 05:25 Total Counted 100 12/01/17 05:33 Neutrophils % (Manual) 82 % (39-76) H 12/01/17 05:33 Band Neutrophils % 6 % (0-10) 12/01/17 05:33 Lymphocytes % (Manual) 9 % (13-43) L 12/01/17 05:33 Monocytes % (Manual) 3 % (4-9) L 12/01/17 05:33 Plt Morphology Comment Normal (NORMAL) 12/12/17 05:45 RBC Morphology Abnormal (NORMAL) 12/12/17 05:45 Anisocytosis 1+ A 12/12/17 05:45 Stomatocytes 2+ A 12/12/17 05:45 D-Dimer 1990 ng/mL (0-400) H* 11/30/17 14:07 Sodium 140 mmol/L (136-145) 12/14/17 05:25 Corrected Sodium TNP 12/14/17 05:25 Potassium 3.5 mmol/L (3.5-5.1) 12/14/17 05:25 Chloride 101 mmol/L (98-107) 12/14/17 05:25 Carbon Dioxide 34.2 mmol/L (21-32) H 12/14/17 05:25 BUN 10 mg/dL (7-18) 12/14/17 05:25 Creatinine 1.80 mg/dL (0.70-1.30) H 12/14/17 05:25 Est GFR (MDRD) Af Amer 49 (>60) L 12/14/17 05:25 Est GFR (MDRD) Non-Af 41 (>60) L 12/14/17 05:25 Glucose 104 mg/dL (65-99) H 12/14/17 05:25 Hemoglobin A1c 6.3 % 12/12/17 05:45 Lactic Acid 1.4 mmol/L (0.4-2.0) 11/30/17 14:07 Calcium 8.7 mg/dL (8.5-10.1) 12/14/17 05:25 Corrected Calcium 10.0 mg/dL (8.5-10.1) 12/13/17 05:30 Magnesium 2.1 mg/dL (1.7-2.9) 12/13/17 05:30 Total Bilirubin 0.40 mg/dL (0.2-1.0) 12/13/17 05:30 AST 19 Units/L (15-37) 12/13/17 05:30 ALT 13 Units/L (12-78) 12/13/17 05:30 Alkaline Phosphatase 74 Units/L (46-116) 12/13/17 05:30 C-Reactive Protein 290.00 mg/L (0-3.0) H 11/30/17 13:41 Total Protein 6.6 g/dL (6.4-8.2) 12/13/17 05:30 Albumin 2.2 g/dL (3.4-5.0) L 12/13/17 05:30 Globulin 4.4 g/dL (2.5-4.5) 12/13/17 05:30 Albumin/Globulin Ratio 0.5 Ratio (1.1-2.1) L 12/13/17 05:30 Vancomycin Trough 19.0 ug/mL (15-20) 12/08/17 06:02 - Assessment and Plan 1: still extensive cellulitis Rt leg. no abscess formation or necrosis. on IV Nafcillin , local Silvadene ,leg elevation and DVT prophylaxis. same Nafcillin for now and local care.. .. - Problem Patient Problems: Patient Problems Cellulitis of right lower leg (Acute) L03.115 Open wound of right lower extremity (Acute) S81.801A COPD (chronic obstructive pulmonary disease) (Acute) J44.9 Leg abscess (Acute) L02.419 CHF (congestive heart failure) (Acute) I50.9 SOB (shortness of breath) (Acute) R06.02
[2017-12-14] MEDS: NS 1000 ML 1,000 ML IV SCH (11:02)
[2017-12-14] MEDS: COLACE CAP 100 MG PO SCH (22:05)
[2017-12-15] MEDS: NAFCILLIN SODIUM 2 G in NS 100 ML IV 100 ML IV SCH ×6 (00:22→20:49)
[2017-12-15 05:42] LABS: BLOOD UREA NITROGEN 9 mg/dL (7-18); CALCIUM 8.9 mg/dL (8.5-10.1); CARBON DIOXIDE 34.5 mmol/L (21-32); CHLORIDE 102 mmol/L (98-107); CREATININE 1.82 mg/dL (0.70-1.30); SODIUM 141 mmol/L (136-145); eGFR NON BLACK RACES 40 (>60)
[2017-12-15 06:11] LABS: BASOPHILS # (AUTO) 0.1 X10^3/uL (0.0-0.1); BASOPHILS % (AUTO) 1.2 % (0.2-1.0); EOSINOPHILS # (AUTO) 0.2 x10^3/uL (0.0-0.2); EOSINOPHILS % (AUTO) 2.3 % (0.9-2.9); HEMATOCRIT 36.3 % (42.0-54.0); HEMOGLOBIN 12.3 g/dL (13.5-18.0); LYMPHOCYTES # (AUTO) 1.2 X10^3/uL (1.3-2.9); LYMPHOCYTES % (AUTO) 15.5 % (21.0-51.0); MEAN CORPUSCULAR HEMOGLOBIN 33.3 pg (27.0-34.0); MEAN CORPUSCULAR HGB CONC 33.8 g/dL (33.0-35.0); MEAN CORPUSCULAR VOLUME 98.3 fL (80.0-100.0); MONOCYTES # (AUTO) 0.5 x10^3/uL (0.3-0.8); MONOCYTES % (AUTO) 6.6 % (0.0-13.0); NEUTROPHILS # (AUTO) 5.7 x10^3/uL (2.2-4.8); NEUTROPHILS % (AUTO) 74.4 % (42.0-75.0); PLATELET COUNT 260 X10^3/uL (150.0-450.0); RED CELL DISTRIBUTION WIDTH 13.4 % (11.6-16.5); WHITE BLOOD COUNT 7.6 X10^3/uL (3.6-10.0)
[2017-12-15] MEDS: LOVENOX INJ 40 MG SYR SC SCH (08:03)
[2017-12-15] MEDS: ACTOS PO SCH (08:05)
[2017-12-15] MEDS: ZYVOX 600MG IV 600 MG/300 ML BAG IV SCH ×2 (08:05→20:50)
[2017-12-15] MEDS: SILVADENE TOP SCH ×2 (08:06→20:50)
[2017-12-15] MEDS: DUONEB 0.5 MG/3 MG NEB SCH ×4 (08:50→21:41)
[2017-12-15] MEDS: PULMICORT NEB TX 0.5 MG NEB SCH ×2 (08:50→21:41)
[2017-12-15] MEDS ORDERED: HIBICLENS WASH ONE (09:02)
[2017-12-15] MEDS: NORCO 10/325 TAB PO PRN ×2 (09:59→17:30)
[2017-12-15] MEDS: NYSTATIN SUSP MT SCH ×4 (10:00→20:50)
--- NOTE | 2017-12-15 10:26 | DR.PROGNOT ---
Hospital Progress Notes - Progress Note for Day of: Progress Note Date: 12/15/17 - Chief Complaint Chief Complaint: improving with less swelling and less erythema today ,. still having seepage from posterior and lateral aspect of Rt leg . CBC and CMP are normal - Past Medical Family Social History Past Med/Fam/Surg Hx: No changes since H&P Allergies: Allergies No Known Drug Allergies Allergy (Verified 11/30/17 12:36) - Review Of Systems ROS: No change since H&P - Vital Signs Vital Signs: Temperature 98.4 F Pulse Rate [Right Brachial] 108 Pulse Rate [Apical] 102 Pulse Rate [Bilateral Brachial 104 ] Pulse Rate 86 Respiratory Rate 20 Blood Pressure [Right Arm] 132/83 Blood Pressure [Left Arm] 125/76 Blood Pressure 122/86 O2 Sat by Pulse Oximetry 97 - Physical Exam Oriented: Normal Eyes: Normal Ear: Normal Nose: Normal Throat: Normal Respiratory: Diminished, Wheezes Cardiovascular: Normal, Edema : Normal GI:Auscultation: Normal GI:Palpation: Normal GI: Tenderness: Normal Skin: Other (multiple skin ulcers , no necrosis or abscess formation ..) Musculoskeletal: Right (still having erythema extending above the knee with edema 2 +.. distal pulses present ), Leg Psychiatric: Normal Speech Pattern: Clear, Appropriate - Laboratory and Diagnostics Result Diagrams: 12/15/17 05:08 12/15/17 05:08 Labs: 12/05/17 11:52 Foot - Right Gram Stain - Final 12/05/17 11:52 Foot - Right Wound Culture - Final Staphylococcus Haemolyticus 12/03/17 10:51 Leg - Right Gram Stain - Final 12/03/17 10:51 Leg - Right Wound Culture - Final 12/04/17 23:26 Sputum - Expectorated Sputum Sputum Culture - Final 12/04/17 23:26 Sputum - Expectorated Sputum - Final 12/01/17 05:45 Blood Blood Culture - Final 12/01/17 05:33 Blood Blood Culture - Final 11/30/17 14:13 Blood Blood Culture - Final 11/30/17 14:07 Blood Blood Culture - Final 11/30/17 13:44 Leg - Right Gram Stain - Final 11/30/17 13:44 Leg - Right Wound Culture - Final Laboratory WBC 7.6 X10^3/uL (3.6-10.0) 12/15/17 05:08 RBC 3.70 X10^6/uL (4.7-6.0) L 12/15/17 05:08 Hgb 12.3 g/dL (13.5-18.0) L 12/15/17 05:08 Hct 36.3 % (42.0-54.0) L 12/15/17 05:08 MCV 98.3 fL (80.0-100.0) 12/15/17 05:08 MCH 33.3 pg (27.0-34.0) 12/15/17 05:08 MCHC 33.8 g/dL (33.0-35.0) 12/15/17 05:08 RDW 13.4 % (11.6-16.5) 12/15/17 05:08 Plt Count 260 X10^3/uL (150.0-450.0) 12/15/17 05:08 Plt Count Comment Adequate (ADEQUATE) 12/12/17 05:45 MPV 8.0 fL (7.4-11.0) 12/15/17 05:08 Neut % (Auto) 74.4 % (42.0-75.0) 12/15/17 05:08 Lymph % (Auto) 15.5 % (21.0-51.0) L 12/15/17 05:08 [place] % (Auto) 6.6 % (0.0-13.0) 12/15/17 05:08 Eos % (Auto) 2.3 % (0.9-2.9) 12/15/17 05:08 Baso % (Auto) 1.2 % (0.2-1.0) H 12/15/17 05:08 Neut # (Auto) 5.7 x10^3/uL (2.2-4.8) H 12/15/17 05:08 Lymph # (Auto) 1.2 X10^3/uL (1.3-2.9) L 12/15/17 05:08 [place] # (Auto) 0.5 x10^3/uL (0.3-0.8) 12/15/17 05:08 Eos # (Auto) 0.2 x10^3/uL (0.0-0.2) 12/15/17 05:08 Baso # (Auto) 0.1 X10^3/uL (0.0-0.1) 12/15/17 05:08 Absolute Nucleated RBC 0.0 /100WBC 12/15/17 05:08 Total Counted 100 12/01/17 05:33 Neutrophils % (Manual) 82 % (39-76) H 12/01/17 05:33 Band Neutrophils % 6 % (0-10) 12/01/17 05:33 Lymphocytes % (Manual) 9 % (13-43) L 12/01/17 05:33 Monocytes % (Manual) 3 % (4-9) L 12/01/17 05:33 Plt Morphology Comment Normal (NORMAL) 12/12/17 05:45 RBC Morphology Abnormal (NORMAL) 12/12/17 05:45 Anisocytosis 1+ A 12/12/17 05:45 Stomatocytes 2+ A 12/12/17 05:45 D-Dimer 1990 ng/mL (0-400) H* 11/30/17 14:07 Sodium 141 mmol/L (136-145) 12/15/17 05:08 Corrected Sodium TNP 12/15/17 05:08 Potassium 4.0 mmol/L (3.5-5.1) 12/15/17 05:08 Chloride 102 mmol/L (98-107) 12/15/17 05:08 Carbon Dioxide 34.5 mmol/L (21-32) H 12/15/17 05:08 BUN 9 mg/dL (7-18) 12/15/17 05:08 Creatinine 1.82 mg/dL (0.70-1.30) H 12/15/17 05:08 Est GFR (MDRD) Af Amer 48 (>60) L 12/15/17 05:08 Est GFR (MDRD) Non-Af 40 (>60) L 12/15/17 05:08 Glucose 107 mg/dL (65-99) H 12/15/17 05:08 Hemoglobin A1c 6.3 % 12/12/17 05:45 Lactic Acid 1.4 mmol/L (0.4-2.0) 11/30/17 14:07 Calcium 8.9 mg/dL (8.5-10.1) 12/15/17 05:08 Corrected Calcium 10.0 mg/dL (8.5-10.1) 12/13/17 05:30 Magnesium 2.1 mg/dL (1.7-2.9) 12/13/17 05:30 Total Bilirubin 0.40 mg/dL (0.2-1.0) 12/13/17 05:30 AST 19 Units/L (15-37) 12/13/17 05:30 ALT 13 Units/L (12-78) 12/13/17 05:30 Alkaline Phosphatase 74 Units/L (46-116) 12/13/17 05:30 C-Reactive Protein 290.00 mg/L (0-3.0) H 11/30/17 13:41 Total Protein 6.6 g/dL (6.4-8.2) 12/13/17 05:30 Albumin 2.2 g/dL (3.4-5.0) L 12/13/17 05:30 Globulin 4.4 g/dL (2.5-4.5) 12/13/17 05:30 Albumin/Globulin Ratio 0.5 Ratio (1.1-2.1) L 12/13/17 05:30 Vancomycin Trough 19.0 ug/mL (15-20) 12/08/17 06:02 - Assessment and Plan 1: still extensive cellulitis Rt leg. no abscess formation or necrosis. on IV Nafcillin , local Silvadene ,leg elevation and DVT prophylaxis. same Nafcillin for now and local care.. .. - Problem Patient Problems: Patient Problems Cellulitis of right lower leg (Acute) L03.115 Open wound of right lower extremity (Acute) S81.801A COPD (chronic obstructive pulmonary disease) (Acute) J44.9 Leg abscess (Acute) L02.419 CHF (congestive heart failure) (Acute) I50.9 SOB (shortness of breath) (Acute) R06.02
[2017-12-15] MEDS: NS 1000 ML 1,000 ML IV SCH ×2 (11:04→16:52)
[2017-12-15 13:46] LABS: ALANINE AMINOTRANSFERASE 15 Units/L (12-78); ALBUMIN 2.4 g/dL (3.4-5.0); ALKALINE PHOSPHATASE 61 Units/L (46-116); ASPARTATE AMINO TRANSFERASE 21 Units/L (15-37); COR CA(FOR HYPOALB) 10.2 mg/dL (8.5-10.1); TOTAL PROTEIN 6.8 g/dL (6.4-8.2)
--- NOTE | 2017-12-15 17:51 | PCM.PROG ---
Progress Note - Progress Note for Day of Date: 12/12/17 - Subjective Subjective: 62 WM ER ADMISSION ON 11/30 WITH RLE CELLULITIS. PT CO PAIN TO RLE WITH ERYTHEMA AND EDEMA. WE WILL CONTINUE WOUND CARE, IV ANTIBIOTICS, AND LOVENOX PROPHALAXIS. CONTINUES WITH PITTING EDEMA TO RIGHT THIGH. WE WILL FOLLOW UP WITH AM LABS AND CONTINUE TO MONITOR. ENCOURAGE ORAL HYDRATION, NAFCILLIN IV ADDED - Past Medical Family Social History Past Med/Fam/Surg Hx: No changes since H&P Allergies: Allergies No Known Drug Allergies Allergy (Verified 11/30/17 12:36) - Review of Systems ROS: No change since H&P - Vital Signs and I&O's Vital Signs: Temperature 98.3 F Pulse Rate [Right Brachial] 90 Pulse Rate [Apical] 102 Pulse Rate [Bilateral Brachial 104 ] Pulse Rate 100 Respiratory Rate 16 Blood Pressure [Right Arm] 137/59 Blood Pressure [Left Arm] 126/62 Blood Pressure 122/86 O2 Sat by Pulse Oximetry 97 Intake and Output: Intake & Output 12/13/17 12/14/17 12/15/17 12/16/17 11:59 11:59 11:59 11:59 Intake Total 3945 / 3945 4211 / 4211 3499 / 3499 202 / 2027 Output Total 650 / 650 Balance 3945 / 3945 4211 / 4211 3499 / 3499 1378 / 1378 - Physical Exam Oriented: Normal Eyes: Normal Ear: Normal Nose: Normal Throat: Normal Respiratory: Diminished, Wheezes Cardiovascular: Normal, Edema : Normal Auscultation: Bowel Sounds: Normal Tenderness: Normal Skin: Other (multiple skin ulcers , no necrosis or abscess formation ..) Musculoskeletal: Right (still having erythema extending above the knee with edema 2 +.. distal pulses present ), Leg Psychiatric: Normal Speech Pattern: Clear, Appropriate - Laboratory and Diagnostics Result Diagrams: 12/15/17 05:08 12/15/17 05:08 Labs: 12/05/17 11:52 Foot - Right Gram Stain - Final 12/05/17 11:52 Foot - Right Wound Culture - Final Staphylococcus Haemolyticus 12/03/17 10:51 Leg - Right Gram Stain - Final 12/03/17 10:51 Leg - Right Wound Culture - Final 12/04/17 23:26 Sputum - Expectorated Sputum Sputum Culture - Final 12/04/17 23:26 Sputum - Expectorated Sputum - Final 12/01/17 05:45 Blood Blood Culture - Final 12/01/17 05:33 Blood Blood Culture - Final 11/30/17 14:13 Blood Blood Culture - Final 11/30/17 14:07 Blood Blood Culture - Final 11/30/17 13:44 Leg - Right Gram Stain - Final 11/30/17 13:44 Leg - Right Wound Culture - Final Laboratory WBC 7.6 X10^3/uL (3.6-10.0) 12/15/17 05:08 RBC 3.70 X10^6/uL (4.7-6.0) L 12/15/17 05:08 Hgb 12.3 g/dL (13.5-18.0) L 12/15/17 05:08 Hct 36.3 % (42.0-54.0) L 12/15/17 05:08 MCV 98.3 fL (80.0-100.0) 12/15/17 05:08 MCH 33.3 pg (27.0-34.0) 12/15/17 05:08 MCHC 33.8 g/dL (33.0-35.0) 12/15/17 05:08 RDW 13.4 % (11.6-16.5) 12/15/17 05:08 Plt Count 260 X10^3/uL (150.0-450.0) 12/15/17 05:08 Plt Count Comment Adequate (ADEQUATE) 12/12/17 05:45 MPV 8.0 fL (7.4-11.0) 12/15/17 05:08 Neut % (Auto) 74.4 % (42.0-75.0) 12/15/17 05:08 Lymph % (Auto) 15.5 % (21.0-51.0) L 12/15/17 05:08 [place] % (Auto) 6.6 % (0.0-13.0) 12/15/17 05:08 Eos % (Auto) 2.3 % (0.9-2.9) 12/15/17 05:08 Baso % (Auto) 1.2 % (0.2-1.0) H 12/15/17 05:08 Neut # (Auto) 5.7 x10^3/uL (2.2-4.8) H 12/15/17 05:08 Lymph # (Auto) 1.2 X10^3/uL (1.3-2.9) L 12/15/17 05:08 [place] # (Auto) 0.5 x10^3/uL (0.3-0.8) 12/15/17 05:08 Eos # (Auto) 0.2 x10^3/uL (0.0-0.2) 12/15/17 05:08 Baso # (Auto) 0.1 X10^3/uL (0.0-0.1) 12/15/17 05:08 Absolute Nucleated RBC 0.0 /100WBC 12/15/17 05:08 Total Counted 100 12/01/17 05:33 Neutrophils % (Manual) 82 % (39-76) H 12/01/17 05:33 Band Neutrophils % 6 % (0-10) 12/01/17 05:33 Lymphocytes % (Manual) 9 % (13-43) L 12/01/17 05:33 Monocytes % (Manual) 3 % (4-9) L 12/01/17 05:33 Plt Morphology Comment Normal (NORMAL) 12/12/17 05:45 RBC Morphology Abnormal (NORMAL) 12/12/17 05:45 Anisocytosis 1+ A 12/12/17 05:45 Stomatocytes 2+ A 12/12/17 05:45 D-Dimer 1990 ng/mL (0-400) H* 11/30/17 14:07 Sodium 141 mmol/L (136-145) 12/15/17 05:08 Corrected Sodium TNP 12/15/17 05:08 Potassium 4.0 mmol/L (3.5-5.1) 12/15/17 05:08 Chloride 102 mmol/L (98-107) 12/15/17 05:08 Carbon Dioxide 34.5 mmol/L (21-32) H 12/15/17 05:08 BUN 9 mg/dL (7-18) 12/15/17 05:08 Creatinine 1.82 mg/dL (0.70-1.30) H 12/15/17 05:08 Est GFR (MDRD) Af Amer 48 (>60) L 12/15/17 05:08 Est GFR (MDRD) Non-Af 40 (>60) L 12/15/17 05:08 Glucose 107 mg/dL (65-99) H 12/15/17 05:08 Hemoglobin A1c 6.3 % 12/12/17 05:45 Lactic Acid 1.4 mmol/L (0.4-2.0) 11/30/17 14:07 Calcium 8.9 mg/dL (8.5-10.1) 12/15/17 05:08 Corrected Calcium 10.2 mg/dL (8.5-10.1) H 12/15/17 05:08 Magnesium 2.1 mg/dL (1.7-2.9) 12/13/17 05:30 Total Bilirubin 0.80 mg/dL (0.2-1.0) 12/15/17 05:08 AST 21 Units/L (15-37) 12/15/17 05:08 ALT 15 Units/L (12-78) 12/15/17 05:08 Alkaline Phosphatase 61 Units/L (46-116) 12/15/17 05:08 C-Reactive Protein 290.00 mg/L (0-3.0) H 11/30/17 13:41 Total Protein 6.8 g/dL (6.4-8.2) 12/15/17 05:08 Albumin 2.4 g/dL (3.4-5.0) L 12/15/17 05:08 Globulin 4.4 g/dL (2.5-4.5) 12/15/17 05:08 Albumin/Globulin Ratio 0.5 Ratio (1.1-2.1) L 12/15/17 05:08 Vancomycin Trough 19.0 ug/mL (15-20) 12/08/17 06:02 - Plan (1) Cellulitis of right lower leg Status: Acute Plan: BLOOD AND WOUND CULTURES COLLECTED ON ADMISSION. BP MONITORING, COPD RESP CONSULT. REPEAT AM LABS,. PAIN CONTROL (2) Open wound of right lower extremity Status: Acute Plan: WOUND CARE. IV ATBX, SEE CULTURE REPORT. CONTINUE WOUND CARE PER SURGICAL RECOMMENDATION (3) COPD (chronic obstructive pulmonary disease) Status: Acute (4) Leg abscess Status: Acute Plan: RLE CELLULITIS, CONSULTING SURGEON (5) CHF (congestive heart failure) Status: Acute Plan: I & O, SUPPLEMENTAL O2 PRN (6) SOB (shortness of breath) Status: Acute Plan: HX COPD, CTA CHEST R/O PE NEGATIVE FOR PE
--- NOTE | 2017-12-15 17:52 | PCM.PROG ---
Progress Note - Progress Note for Day of Date: 12/15/17 - Subjective Subjective: 62 WM ER ADMISSION ON 11/30 WITH RLE CELLULITIS. PT CO PAIN TO RLE WITH ERYTHEMA AND EDEMA. WE WILL CONTINUE WOUND CARE, IV ANTIBIOTICS, AND LOVENOX PROPHALAXIS. CONTINUES WITH PITTING EDEMA TO RIGHT THIGH, IMPROVED SINCE FRIDAY. PT HAS IMPROVING PAIN AND INCREASE ROM SINCE ADDING NAFCILLIN TO ATBX REGIMEN. WE WILL FOLLOW UP WITH AM LABS AND CONTINUE TO MONITOR. ENCOURAGE ORAL HYDRATION - Past Medical Family Social History Past Med/Fam/Surg Hx: No changes since H&P Allergies: Allergies No Known Drug Allergies Allergy (Verified 11/30/17 12:36) - Review of Systems ROS: No change since H&P - Vital Signs and I&O's Vital Signs: Temperature 98.3 F Pulse Rate [Right Brachial] 90 Pulse Rate [Apical] 102 Pulse Rate [Bilateral Brachial 104 ] Pulse Rate 100 Respiratory Rate 16 Blood Pressure [Right Arm] 137/59 Blood Pressure [Left Arm] 126/62 Blood Pressure 122/86 O2 Sat by Pulse Oximetry 97 Intake and Output: Intake & Output 12/13/17 12/14/17 12/15/17 12/16/17 11:59 11:59 11:59 11:59 Intake Total 3945 / 3945 4211 / 4211 3499 / 3499 2027 / 2027 Output Total 650 / 650 Balance 3945 / 3945 4211 / 4211 3499 / 3499 1378 / 1378 - Physical Exam Oriented: Normal Eyes: Normal Ear: Normal Nose: Normal Throat: Normal Respiratory: Diminished, Wheezes Cardiovascular: Normal, Edema : Normal Auscultation: Bowel Sounds: Normal Tenderness: Normal Skin: Other (multiple skin ulcers , no necrosis or abscess formation ..) Musculoskeletal: Right (still having erythema extending above the knee with edema 2 +.. distal pulses present ), Leg Psychiatric: Normal Speech Pattern: Clear, Appropriate - Laboratory and Diagnostics Result Diagrams: 12/15/17 05:08 12/15/17 05:08 Labs: 12/05/17 11:52 Foot - Right Gram Stain - Final 12/05/17 11:52 Foot - Right Wound Culture - Final Staphylococcus Haemolyticus 12/03/17 10:51 Leg - Right Gram Stain - Final 12/03/17 10:51 Leg - Right Wound Culture - Final 12/04/17 23:26 Sputum - Expectorated Sputum Sputum Culture - Final 12/04/17 23:26 Sputum - Expectorated Sputum - Final 12/01/17 05:45 Blood Blood Culture - Final 12/01/17 05:33 Blood Blood Culture - Final 11/30/17 14:13 Blood Blood Culture - Final 11/30/17 14:07 Blood Blood Culture - Final 11/30/17 13:44 Leg - Right Gram Stain - Final 11/30/17 13:44 Leg - Right Wound Culture - Final Laboratory WBC 7.6 X10^3/uL (3.6-10.0) 12/15/17 05:08 RBC 3.70 X10^6/uL (4.7-6.0) L 12/15/17 05:08 Hgb 12.3 g/dL (13.5-18.0) L 12/15/17 05:08 Hct 36.3 % (42.0-54.0) L 12/15/17 05:08 MCV 98.3 fL (80.0-100.0) 12/15/17 05:08 MCH 33.3 pg (27.0-34.0) 12/15/17 05:08 MCHC 33.8 g/dL (33.0-35.0) 12/15/17 05:08 RDW 13.4 % (11.6-16.5) 12/15/17 05:08 Plt Count 260 X10^3/uL (150.0-450.0) 12/15/17 05:08 Plt Count Comment Adequate (ADEQUATE) 12/12/17 05:45 MPV 8.0 fL (7.4-11.0) 12/15/17 05:08 Neut % (Auto) 74.4 % (42.0-75.0) 12/15/17 05:08 Lymph % (Auto) 15.5 % (21.0-51.0) L 12/15/17 05:08 [place] % (Auto) 6.6 % (0.0-13.0) 12/15/17 05:08 Eos % (Auto) 2.3 % (0.9-2.9) 12/15/17 05:08 Baso % (Auto) 1.2 % (0.2-1.0) H 12/15/17 05:08 Neut # (Auto) 5.7 x10^3/uL (2.2-4.8) H 12/15/17 05:08 Lymph # (Auto) 1.2 X10^3/uL (1.3-2.9) L 12/15/17 05:08 [place] # (Auto) 0.5 x10^3/uL (0.3-0.8) 12/15/17 05:08 Eos # (Auto) 0.2 x10^3/uL (0.0-0.2) 12/15/17 05:08 Baso # (Auto) 0.1 X10^3/uL (0.0-0.1) 12/15/17 05:08 Absolute Nucleated RBC 0.0 /100WBC 12/15/17 05:08 Total Counted 100 12/01/17 05:33 Neutrophils % (Manual) 82 % (39-76) H 12/01/17 05:33 Band Neutrophils % 6 % (0-10) 12/01/17 05:33 Lymphocytes % (Manual) 9 % (13-43) L 12/01/17 05:33 Monocytes % (Manual) 3 % (4-9) L 12/01/17 05:33 Plt Morphology Comment Normal (NORMAL) 12/12/17 05:45 RBC Morphology Abnormal (NORMAL) 12/12/17 05:45 Anisocytosis 1+ A 12/12/17 05:45 Stomatocytes 2+ A 12/12/17 05:45 D-Dimer 1990 ng/mL (0-400) H* 11/30/17 14:07 Sodium 141 mmol/L (136-145) 12/15/17 05:08 Corrected Sodium TNP 12/15/17 05:08 Potassium 4.0 mmol/L (3.5-5.1) 12/15/17 05:08 Chloride 102 mmol/L (98-107) 12/15/17 05:08 Carbon Dioxide 34.5 mmol/L (21-32) H 12/15/17 05:08 BUN 9 mg/dL (7-18) 12/15/17 05:08 Creatinine 1.82 mg/dL (0.70-1.30) H 12/15/17 05:08 Est GFR (MDRD) Af Amer 48 (>60) L 12/15/17 05:08 Est GFR (MDRD) Non-Af 40 (>60) L 12/15/17 05:08 Glucose 107 mg/dL (65-99) H 12/15/17 05:08 Hemoglobin A1c 6.3 % 12/12/17 05:45 Lactic Acid 1.4 mmol/L (0.4-2.0) 11/30/17 14:07 Calcium 8.9 mg/dL (8.5-10.1) 12/15/17 05:08 Corrected Calcium 10.2 mg/dL (8.5-10.1) H 12/15/17 05:08 Magnesium 2.1 mg/dL (1.7-2.9) 12/13/17 05:30 Total Bilirubin 0.80 mg/dL (0.2-1.0) 12/15/17 05:08 AST 21 Units/L (15-37) 12/15/17 05:08 ALT 15 Units/L (12-78) 12/15/17 05:08 Alkaline Phosphatase 61 Units/L (46-116) 12/15/17 05:08 C-Reactive Protein 290.00 mg/L (0-3.0) H 11/30/17 13:41 Total Protein 6.8 g/dL (6.4-8.2) 12/15/17 05:08 Albumin 2.4 g/dL (3.4-5.0) L 12/15/17 05:08 Globulin 4.4 g/dL (2.5-4.5) 12/15/17 05:08 Albumin/Globulin Ratio 0.5 Ratio (1.1-2.1) L 12/15/17 05:08 Vancomycin Trough 19.0 ug/mL (15-20) 12/08/17 06:02 - Plan (1) Cellulitis of right lower leg Status: Acute Plan: BLOOD AND WOUND CULTURES COLLECTED ON ADMISSION. BP MONITORING, COPD RESP CONSULT. REPEAT AM LABS,. PAIN CONTROL (2) Open wound of right lower extremity Status: Acute Plan: WOUND CARE. IV ATBX, SEE CULTURE REPORT. CONTINUE WOUND CARE PER SURGICAL RECOMMENDATION (3) COPD (chronic obstructive pulmonary disease) Status: Acute (4) Leg abscess Status: Acute Plan: RLE CELLULITIS, CONSULTING SURGEON (5) CHF (congestive heart failure) Status: Acute Plan: I & O, SUPPLEMENTAL O2 PRN (6) SOB (shortness of breath) Status: Acute Plan: HX COPD, CTA CHEST R/O PE NEGATIVE FOR PE
[2017-12-15] MEDS: COLACE CAP 100 MG PO SCH (20:50)
[2017-12-16] MEDS: NAFCILLIN SODIUM 2 G in NS 100 ML IV 100 ML IV SCH ×7 (00:15→23:14)
[2017-12-16 06:06] LABS: BASOPHILS # (AUTO) 0.1 X10^3/uL (0.0-0.1); BASOPHILS % (AUTO) 1.5 % (0.2-1.0); EOSINOPHILS # (AUTO) 0.2 x10^3/uL (0.0-0.2); EOSINOPHILS % (AUTO) 2.5 % (0.9-2.9); HEMATOCRIT 35.2 % (42.0-54.0); HEMOGLOBIN 11.9 g/dL (13.5-18.0); LYMPHOCYTES # (AUTO) 1.1 X10^3/uL (1.3-2.9); LYMPHOCYTES % (AUTO) 15.4 % (21.0-51.0); MEAN CORPUSCULAR HEMOGLOBIN 32.8 pg (27.0-34.0); MEAN CORPUSCULAR HGB CONC 33.8 g/dL (33.0-35.0); MEAN CORPUSCULAR VOLUME 97.1 fL (80.0-100.0); MEAN PLATELET VOLUME 7.7 fL (7.4-11.0); MONOCYTES # (AUTO) 0.6 x10^3/uL (0.3-0.8); MONOCYTES % (AUTO) 8.1 % (0.0-13.0); NEUTROPHILS # (AUTO) 5.3 x10^3/uL (2.2-4.8); NEUTROPHILS % (AUTO) 72.5 % (42.0-75.0); PLATELET COUNT 254 X10^3/uL (150.0-450.0); RED BLOOD COUNT 3.63 X10^6/uL (4.7-6.0); RED CELL DISTRIBUTION WIDTH 13.6 % (11.6-16.5); WHITE BLOOD COUNT 7.3 X10^3/uL (3.6-10.0)
[2017-12-16 06:27] LABS: ALBUMIN 2.3 g/dL (3.4-5.0); CALCIUM 8.4 mg/dL (8.5-10.1); CARBON DIOXIDE 29.9 mmol/L (21-32); COR CA(FOR HYPOALB) 9.8 mg/dL (8.5-10.1); CREATININE 1.62 mg/dL (0.70-1.30); TOTAL PROTEIN 6.6 g/dL (6.4-8.2)
[2017-12-16] MEDS: NS 1000 ML 1,000 ML IV SCH ×2 (07:39→14:11)
[2017-12-16] MEDS: PULMICORT NEB TX 0.5 MG NEB SCH ×2 (08:00→20:03)
[2017-12-16] MEDS: DUONEB 0.5 MG/3 MG NEB SCH ×4 (08:00→20:03)
[2017-12-16] MEDS: NORCO 10/325 TAB PO PRN ×2 (08:15→15:27)
[2017-12-16] MEDS: LOVENOX INJ 40 MG SYR SC SCH (08:29)
[2017-12-16] MEDS: ACTOS PO SCH (08:29)
[2017-12-16] MEDS: ZYVOX 600MG IV 600 MG/300 ML BAG IV SCH ×2 (08:30→21:16)
[2017-12-16] MEDS: NYSTATIN SUSP MT SCH ×4 (08:30→21:16)
[2017-12-16] MEDS: SILVADENE TOP SCH ×2 (08:30→21:16)
[2017-12-16] MEDS ORDERED: NS 1000 ML 1,000 ML ONE (10:58)
--- NOTE | 2017-12-16 17:51 | DR.PROGNOT ---
Hospital Progress Notes - Progress Note for Day of: Progress Note Date: 12/16/17 - Chief Complaint Chief Complaint: slow improvement with less swelling and less erythema today , . only mild seepage . no necrosis . ROM in bettrer . afebrile . - Past Medical Family Social History Past Med/Fam/Surg Hx: No changes since H&P Allergies: Allergies No Known Drug Allergies Allergy (Verified 11/30/17 12:36) - Review Of Systems ROS: No change since H&P - Vital Signs Vital Signs: Temperature 97.7 F Pulse Rate [Right Brachial] 104 Pulse Rate [Apical] 102 Pulse Rate [Bilateral Brachial 104 ] Pulse Rate 93 Respiratory Rate 22 Blood Pressure [Right Arm] 137/87 Blood Pressure [Left Arm] 126/62 Blood Pressure 122/86 O2 Sat by Pulse Oximetry 96 - Physical Exam Oriented: Normal Eyes: Normal Ear: Normal Nose: Normal Throat: Normal Respiratory: Diminished, Wheezes Cardiovascular: Normal, Edema : Normal GI:Auscultation: Normal GI:Palpation: Normal GI: Tenderness: Normal Skin: Other (erythema is subsiding to below the knee and all blisters are drying slowly .. 2+ edema ) Musculoskeletal: Right (erythema is limited to the knee with edema 2 +.. distal pulses present ), Leg Psychiatric: Normal Speech Pattern: Clear, Appropriate - Laboratory and Diagnostics Result Diagrams: 12/16/17 05:47 12/16/17 05:47 Labs: 12/05/17 11:52 Foot - Right Gram Stain - Final 12/05/17 11:52 Foot - Right Wound Culture - Final Staphylococcus Haemolyticus 12/03/17 10:51 Leg - Right Gram Stain - Final 12/03/17 10:51 Leg - Right Wound Culture - Final 12/04/17 23:26 Sputum - Expectorated Sputum Sputum Culture - Final 12/04/17 23:26 Sputum - Expectorated Sputum - Final 12/01/17 05:45 Blood Blood Culture - Final 12/01/17 05:33 Blood Blood Culture - Final 11/30/17 14:13 Blood Blood Culture - Final 11/30/17 14:07 Blood Blood Culture - Final 11/30/17 13:44 Leg - Right Gram Stain - Final 11/30/17 13:44 Leg - Right Wound Culture - Final Laboratory WBC 7.3 X10^3/uL (3.6-10.0) 12/16/17 05:47 RBC 3.63 X10^6/uL (4.7-6.0) L 12/16/17 05:47 Hgb 11.9 g/dL (13.5-18.0) L 12/16/17 05:47 Hct 35.2 % (42.0-54.0) L 12/16/17 05:47 MCV 97.1 fL (80.0-100.0) 12/16/17 05:47 MCH 32.8 pg (27.0-34.0) 12/16/17 05:47 MCHC 33.8 g/dL (33.0-35.0) 12/16/17 05:47 RDW 13.6 % (11.6-16.5) 12/16/17 05:47 Plt Count 254 X10^3/uL (150.0-450.0) 12/16/17 05:47 Plt Count Comment Adequate (ADEQUATE) 12/12/17 05:45 MPV 7.7 fL (7.4-11.0) 12/16/17 05:47 Neut % (Auto) 72.5 % (42.0-75.0) 12/16/17 05:47 Lymph % (Auto) 15.4 % (21.0-51.0) L 12/16/17 05:47 [place] % (Auto) 8.1 % (0.0-13.0) 12/16/17 05:47 Eos % (Auto) 2.5 % (0.9-2.9) 12/16/17 05:47 Baso % (Auto) 1.5 % (0.2-1.0) H 12/16/17 05:47 Neut # (Auto) 5.3 x10^3/uL (2.2-4.8) H 12/16/17 05:47 Lymph # (Auto) 1.1 X10^3/uL (1.3-2.9) L 12/16/17 05:47 [place] # (Auto) 0.6 x10^3/uL (0.3-0.8) 12/16/17 05:47 Eos # (Auto) 0.2 x10^3/uL (0.0-0.2) 12/16/17 05:47 Baso # (Auto) 0.1 X10^3/uL (0.0-0.1) 12/16/17 05:47 Absolute Nucleated RBC 0.0 /100WBC 12/16/17 05:47 Total Counted 100 12/01/17 05:33 Neutrophils % (Manual) 82 % (39-76) H 12/01/17 05:33 Band Neutrophils % 6 % (0-10) 12/01/17 05:33 Lymphocytes % (Manual) 9 % (13-43) L 12/01/17 05:33 Monocytes % (Manual) 3 % (4-9) L 12/01/17 05:33 Plt Morphology Comment Normal (NORMAL) 12/12/17 05:45 RBC Morphology Abnormal (NORMAL) 12/12/17 05:45 Anisocytosis 1+ A 12/12/17 05:45 Stomatocytes 2+ A 12/12/17 05:45 D-Dimer 1990 ng/mL (0-400) H* 11/30/17 14:07 Sodium 140 mmol/L (136-145) 12/16/17 05:47 Corrected Sodium 140 mmol/L (136-145) 12/16/17 05:47 Potassium 3.7 mmol/L (3.5-5.1) 12/16/17 05:47 Chloride 103 mmol/L (98-107) 12/16/17 05:47 Carbon Dioxide 29.9 mmol/L (21-32) 12/16/17 05:47 BUN 9 mg/dL (7-18) 12/16/17 05:47 Creatinine 1.62 mg/dL (0.70-1.30) H 12/16/17 05:47 Est GFR (MDRD) Af Amer 55 (>60) L 12/16/17 05:47 Est GFR (MDRD) Non-Af 46 (>60) L 12/16/17 05:47 Glucose 118 mg/dL (65-99) H 12/16/17 05:47 Hemoglobin A1c 6.3 % 12/12/17 05:45 Lactic Acid 1.4 mmol/L (0.4-2.0) 11/30/17 14:07 Calcium 8.4 mg/dL (8.5-10.1) L 12/16/17 05:47 Corrected Calcium 9.8 mg/dL (8.5-10.1) 12/16/17 05:47 Magnesium 2.1 mg/dL (1.7-2.9) 12/13/17 05:30 Total Bilirubin 0.60 mg/dL (0.2-1.0) 12/16/17 05:47 AST 17 Units/L (15-37) 12/16/17 05:47 ALT 14 Units/L (12-78) 12/16/17 05:47 Alkaline Phosphatase 64 Units/L (46-116) 12/16/17 05:47 C-Reactive Protein 290.00 mg/L (0-3.0) H 11/30/17 13:41 Total Protein 6.6 g/dL (6.4-8.2) 12/16/17 05:47 Albumin 2.3 g/dL (3.4-5.0) L 12/16/17 05:47 Globulin 4.3 g/dL (2.5-4.5) 12/16/17 05:47 Albumin/Globulin Ratio 0.5 Ratio (1.1-2.1) L 12/16/17 05:47 Vancomycin Trough 19.0 ug/mL (15-20) 12/08/17 06:02 - Assessment and Plan 1: cellulitis Rt leg. multiple ulcration , all improving now. on IV Nafcillin , local Silvadene ,leg elevation and DVT prophylaxis. same Nafcillin for now and local care.. .. - Problem Patient Problems: Patient Problems Cellulitis of right lower leg (Acute) L03.115 Open wound of right lower extremity (Acute) S81.801A COPD (chronic obstructive pulmonary disease) (Acute) J44.9 Leg abscess (Acute) L02.419 CHF (congestive heart failure) (Acute) I50.9 SOB (shortness of breath) (Acute) R06.02
[2017-12-16] MEDS: COLACE CAP 100 MG PO SCH (21:16)
[2017-12-17] MEDS: PROVENTIL NEB TX 0.083% 2.5MG/ 3ML IN PRN (03:18)
[2017-12-17] MEDS: NS 1000 ML 1,000 ML IV SCH ×2 (04:13→17:29)
[2017-12-17] MEDS: NAFCILLIN SODIUM 2 G in NS 100 ML IV 100 ML IV SCH ×5 (04:13→20:50)
[2017-12-17 06:21] LABS: BASOPHILS # (AUTO) 0.1 X10^3/uL (0.0-0.1); BASOPHILS % (AUTO) 1.3 % (0.2-1.0); EOSINOPHILS # (AUTO) 0.2 x10^3/uL (0.0-0.2); EOSINOPHILS % (AUTO) 2.9 % (0.9-2.9); HEMATOCRIT 35.7 % (42.0-54.0); HEMOGLOBIN 11.8 g/dL (13.5-18.0); LYMPHOCYTES # (AUTO) 1.1 X10^3/uL (1.3-2.9); LYMPHOCYTES % (AUTO) 18.8 % (21.0-51.0); MEAN CORPUSCULAR HEMOGLOBIN 32.9 pg (27.0-34.0); MEAN CORPUSCULAR HGB CONC 33.2 g/dL (33.0-35.0); MEAN CORPUSCULAR VOLUME 99.2 fL (80.0-100.0); MONOCYTES # (AUTO) 0.4 x10^3/uL (0.3-0.8); MONOCYTES % (AUTO) 7.5 % (0.0-13.0); NEUTROPHILS % (AUTO) 69.5 % (42.0-75.0); PLATELET COUNT 245 X10^3/uL (150.0-450.0); RED CELL DISTRIBUTION WIDTH 13.7 % (11.6-16.5); WHITE BLOOD COUNT 5.8 X10^3/uL (3.6-10.0)
[2017-12-17 06:27] LABS: ALBUMIN 2.3 g/dL (3.4-5.0); CALCIUM 8.3 mg/dL (8.5-10.1); CARBON DIOXIDE 29.1 mmol/L (21-32); COR CA(FOR HYPOALB) 9.7 mg/dL (8.5-10.1); CREATININE 1.65 mg/dL (0.70-1.30); TOTAL PROTEIN 6.8 g/dL (6.4-8.2)
[2017-12-17] MEDS: ACTOS PO SCH ×2 (08:03)
[2017-12-17] MEDS: NYSTATIN SUSP MT SCH ×4 (08:03→20:58)
[2017-12-17] MEDS: ZYVOX 600MG IV 600 MG/300 ML BAG IV SCH ×2 (08:04→21:55)
[2017-12-17] MEDS: LOVENOX INJ 40 MG SYR SC SCH (08:04)
[2017-12-17] MEDS: PULMICORT NEB TX 0.5 MG NEB SCH ×2 (08:05→20:18)
[2017-12-17] MEDS: DUONEB 0.5 MG/3 MG NEB SCH ×4 (08:05→20:18)
[2017-12-17] MEDS: SILVADENE TOP SCH ×2 (08:16→20:59)
--- NOTE | 2017-12-17 10:03 | RAD ---
HISTORY: Shortness of breath Study: Chest PA and lateral Comparison: 12/09/2017 Findings: The heart is enlarged. No definite congestive heart failure is noted. The jeffery are normal. Diffuse in terstitial lung disease is present. Not significantly changed from the prior examination. No definite acute alveolar infiltrates are identified. There is a left pleural effusion present. The bony thorax is unremarkable. IMPRESSION: Moderate cardiomegaly without definite congestive heart failure Diffuse interstitial lung disease unchanged from the prior examination Left pleural effusion Reported By:
[2017-12-17] MEDS ORDERED: XYLOCAINE-MPF 1% ONE (14:23)
--- NOTE | 2017-12-17 15:16 | RAD ---
History: PICC line placement Study: Chest AP portable Findings: AP portable examination of chest is performed and comparison made to the previous study of the same date. The heart is enlarged as before. Extensive bilateral interstitial disease is present w ith confluent density present at the left lung base medially. There is been interval placement of a r ight arm PICC line tip centrally within the right atrium. Impression: Right arm PICC line in appropriate position. Probable CHF with left pleural effusion. Reported By:
--- NOTE | 2017-12-17 16:48 | DR.UPDATE ---
H&P Update History and Physical Update: History and Physical reviewed and patient examined. Changes noted: NO Yes with the following:Agree with H&P from Dr Frank. Will proceed with PICC for long-term abx therapy Procedures (ALL) - Central Line Placement PCM.CLCO: written consent Time out performed: Yes Patient placed pm monitor/pulse ox: Yes prep: mask, gown, gloves, other Centrial line prep: chlorhexidine scrub Local anesthsia used: lidocane 1% Ultrasound used for placement: Yes (right basilic id'd via ultrasound) Central line lumen ininserted: double (5Fr power port. trimmed to 45cm. none exposed) Post procedure: good blood return, all ports aspirated, flushed,capped, sterile dressing applied Post procedure xray: tip oc catheter in good position Patient tolerated procedure: Yes Complications: none
[2017-12-17] MEDS: COLACE CAP 100 MG PO SCH (20:51)
[2017-12-18] MEDS: NAFCILLIN SODIUM 2 G in NS 100 ML IV 100 ML IV SCH ×4 (00:59→14:19)
[2017-12-18] MEDS: PROVENTIL NEB TX 0.083% 2.5MG/ 3ML IN PRN ×2 (01:12→14:05)
[2017-12-18] MEDS ORDERED: GLUCOPHAGE ONE (06:18)
[2017-12-18 06:35] LABS: BASOPHILS # (AUTO) 0.1 X10^3/uL (0.0-0.1); BASOPHILS % (AUTO) 1.3 % (0.2-1.0); EOSINOPHILS # (AUTO) 0.2 x10^3/uL (0.0-0.2); EOSINOPHILS % (AUTO) 2.6 % (0.9-2.9); HEMATOCRIT 34.2 % (42.0-54.0); HEMOGLOBIN 11.6 g/dL (13.5-18.0); LYMPHOCYTES # (AUTO) 1.4 X10^3/uL (1.3-2.9); LYMPHOCYTES % (AUTO) 17.6 % (21.0-51.0); MEAN CORPUSCULAR HGB CONC 33.9 g/dL (33.0-35.0); MEAN CORPUSCULAR VOLUME 97.6 fL (80.0-100.0); MEAN PLATELET VOLUME 7.4 fL (7.4-11.0); MONOCYTES # (AUTO) 0.7 x10^3/uL (0.3-0.8); MONOCYTES % (AUTO) 8.7 % (0.0-13.0); NEUTROPHILS # (AUTO) 5.5 x10^3/uL (2.2-4.8); NEUTROPHILS % (AUTO) 69.8 % (42.0-75.0); PLATELET COUNT 230 X10^3/uL (150.0-450.0); RED CELL DISTRIBUTION WIDTH 13.5 % (11.6-16.5); WHITE BLOOD COUNT 7.9 X10^3/uL (3.6-10.0)
[2017-12-18 06:45] LABS: ALANINE AMINOTRANSFERASE 13 Units/L (12-78); ALBUMIN 2.2 g/dL (3.4-5.0); ALKALINE PHOSPHATASE 56 Units/L (46-116); ASPARTATE AMINO TRANSFERASE 16 Units/L (15-37); BLOOD UREA NITROGEN 6 mg/dL (7-18); CALCIUM 8.2 mg/dL (8.5-10.1); CARBON DIOXIDE 31.7 mmol/L (21-32); CHLORIDE 105 mmol/L (98-107); COR CA(FOR HYPOALB) 9.6 mg/dL (8.5-10.1); CREATININE 1.43 mg/dL (0.70-1.30); SODIUM 142 mmol/L (136-145); TOTAL PROTEIN 6.6 g/dL (6.4-8.2); eGFR NON BLACK RACES 53 (>60)
[2017-12-18] MEDS ORDERED: GLUCOPHAGE PO SCH (07:00)
[2017-12-18] MEDS: DUONEB 0.5 MG/3 MG NEB SCH ×2 (07:30→12:00)
[2017-12-18] MEDS: PULMICORT NEB TX 0.5 MG NEB SCH (07:30)
[2017-12-18] MEDS: NYSTATIN SUSP MT SCH ×2 (08:33→14:20)
[2017-12-18] MEDS: K-LYTE EFFERVESCENT PO PRN (08:33)
[2017-12-18] MEDS: LOVENOX INJ 40 MG SYR SC SCH (08:34)
[2017-12-18] MEDS: ZYVOX 600MG IV 600 MG/300 ML BAG IV SCH (08:34)
[2017-12-18] MEDS: NS 1000 ML 1,000 ML IV SCH (08:35)
[2017-12-18] MEDS: SILVADENE TOP SCH (09:00)
[2017-12-18] MEDS ORDERED: NAFCILLIN SODIUM IV SCH (11:30)
[2017-12-18] MEDS ORDERED: NS IV SCH (11:30)
[2017-12-18] MEDS ORDERED: Q PUMP EPI ONE (12:00)
[2017-12-18 12:18] VITALS: BP 122/80
--- NOTE | 2017-12-28 07:43 | PCM.DCPLAN ---
Discharge Summary - Admission Date Date of Admission: 12/01/17 - Discharge Date Discharge Date: 12/18/17 - Admission Diagnoses (1) CHF (congestive heart failure) Status: Acute (2) COPD (chronic obstructive pulmonary disease) Status: Acute (3) Cellulitis of right lower leg Status: Acute (4) Leg abscess Status: Acute (5) Open wound of right lower extremity Status: Acute - Discharge Diagnoses Discharge Diagnosis: SAME ADMISSION DIAGNOSIS AND INCLUDE PNEUMONIA AND ACUTE SYSTOLIC CHF - Discharge Medications Discharge Medications: Home Medication List albuterol sulfate [Ventolin HFA] 1 inh INHALATION QIDRESP PRN 11/30/17 [History] apixaban [Eliquis] 5 mg PO BID #60 tab 12/18/17 [Rx] hydrocodone-acetaminophen [Stout] 1 tab PO Q6H PRN #15 tab 12/18/17 [Rx] metformin 500 mg PO DAILY #30 tab 12/18/17 [Rx] silver sulfadiazine [Silvadene] 1 applic TOPICAL BID #1 g 12/18/17 [Rx] Prescriptions: apixaban [Eliquis] KNOXDEEDEE MARADIAGA hydrocodone-acetaminophen [Stout] KIP COLBY metformin KNOX,DEEDEE silver sulfadiazine [Silvadene] KIP COLBY - Hospital Course Vital Signs: Temperature 98.5 F Pulse Rate [Left Brachial] 105 Pulse Rate [Right Brachial] 108 Pulse Rate [Apical] 66 Pulse Rate [Bilateral Brachial 104 ] Pulse Rate 104 Respiratory Rate 20 Blood Pressure [Right Arm] 143/89 Blood Pressure [Left Arm] 122/80 Blood Pressure 122/86 O2 Sat by Pulse Oximetry 94 Latest Lab Results: Laboratory Last Values WBC 7.9 X10^3/uL (3.6-10.0) 12/18/17 06:17 RBC 3.50 X10^6/uL (4.7-6.0) L 12/18/17 06:17 Hgb 11.6 g/dL (13.5-18.0) L 12/18/17 06:17 Hct 34.2 % (42.0-54.0) L 12/18/17 06:17 MCV 97.6 fL (80.0-100.0) 12/18/17 06:17 MCH 33.0 pg (27.0-34.0) 12/18/17 06:17 MCHC 33.9 g/dL (33.0-35.0) 12/18/17 06:17 RDW 13.5 % (11.6-16.5) 12/18/17 06:17 Plt Count 230 X10^3/uL (150.0-450.0) 12/18/17 06:17 Plt Count Comment Adequate (ADEQUATE) 12/12/17 05:45 MPV 7.4 fL (7.4-11.0) 12/18/17 06:17 Neut % (Auto) 69.8 % (42.0-75.0) 12/18/17 06:17 Lymph % (Auto) 17.6 % (21.0-51.0) L 12/18/17 06:17 Bates % (Auto) 8.7 % (0.0-13.0) 12/18/17 06:17 Eos % (Auto) 2.6 % (0.9-2.9) 12/18/17 06:17 Baso % (Auto) 1.3 % (0.2-1.0) H 12/18/17 06:17 Neut # (Auto) 5.5 x10^3/uL (2.2-4.8) H 12/18/17 06:17 Lymph # (Auto) 1.4 X10^3/uL (1.3-2.9) 12/18/17 06:17 Bates # (Auto) 0.7 x10^3/uL (0.3-0.8) 12/18/17 06:17 Eos # (Auto) 0.2 x10^3/uL (0.0-0.2) 12/18/17 06:17 Baso # (Auto) 0.1 X10^3/uL (0.0-0.1) 12/18/17 06:17 Absolute Nucleated RBC 0.0 /100WBC 12/18/17 06:17 Total Counted 100 12/01/17 05:33 Neutrophils % (Manual) 82 % (39-76) H 12/01/17 05:33 Band Neutrophils % 6 % (0-10) 12/01/17 05:33 Lymphocytes % (Manual) 9 % (13-43) L 12/01/17 05:33 Monocytes % (Manual) 3 % (4-9) L 12/01/17 05:33 Plt Morphology Comment Normal (NORMAL) 12/12/17 05:45 RBC Morphology Abnormal (NORMAL) 12/12/17 05:45 Anisocytosis 1+ A 12/12/17 05:45 Stomatocytes 2+ A 12/12/17 05:45 D-Dimer 1990 ng/mL (0-400) H* 11/30/17 14:07 Sodium 142 mmol/L (136-145) 12/18/17 06:17 Corrected Sodium TNP 12/18/17 06:17 Potassium 3.5 mmol/L (3.5-5.1) 12/18/17 06:17 Chloride 105 mmol/L (98-107) 12/18/17 06:17 Carbon Dioxide 31.7 mmol/L (21-32) 12/18/17 06:17 BUN 6 mg/dL (7-18) L 12/18/17 06:17 Creatinine 1.43 mg/dL (0.70-1.30) H 12/18/17 06:17 Est GFR (MDRD) Af Amer > 60 (>60) 12/18/17 06:17 Est GFR (MDRD) Non-Af 53 (>60) L 12/18/17 06:17 Glucose 106 mg/dL (65-99) H 12/18/17 06:17 Hemoglobin A1c 6.3 % 12/12/17 05:45 Lactic Acid 1.4 mmol/L (0.4-2.0) 11/30/17 14:07 Calcium 8.2 mg/dL (8.5-10.1) L 12/18/17 06:17 Corrected Calcium 9.6 mg/dL (8.5-10.1) 12/18/17 06:17 Magnesium 2.1 mg/dL (1.7-2.9) 12/13/17 05:30 Total Bilirubin 0.40 mg/dL (0.2-1.0) 12/18/17 06:17 AST 16 Units/L (15-37) 12/18/17 06:17 ALT 13 Units/L (12-78) 12/18/17 06:17 Alkaline Phosphatase 56 Units/L (46-116) 12/18/17 06:17 C-Reactive Protein 290.00 mg/L (0-3.0) H 11/30/17 13:41 Total Protein 6.6 g/dL (6.4-8.2) 12/18/17 06:17 Albumin 2.2 g/dL (3.4-5.0) L 12/18/17 06:17 Globulin 4.4 g/dL (2.5-4.5) 12/18/17 06:17 Albumin/Globulin Ratio 0.5 Ratio (1.1-2.1) L 12/18/17 06:17 Vancomycin Trough 19.0 ug/mL (15-20) 12/08/17 06:02 Hospital Course: 62 WM ER AMISSION AFTER PRESENTING WITH CIRUMFERENCIAL REDNESS AND CO SWELLING AND REDNESS TO RLE, PT DENIES KNOWN INJURY. 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 PT HAS PMH OF COPD, CURRENT SMOKER. PT HAS NEGATIVE US IN ER AND STABLE TIB/FIB XRAY. PT ADMITTED FOR IV ATBX, BLOOD AND WOUND CULTURES. PATIENT DID HAVE SURGICAL CONSULT. CT REVEALED CELLULITIS WITH NO FORMED ABSCESS. IV ANTIBIOTICS WERE GIVEN. PATIENT WAS NOTED TO HAVE PULMONARY CONGESTION AND EARLY INFILTRATES WHICH RESOLVED PRIOR TO DISCHARGE. DID HAVE IMPROVEMENT AND WAS DC HOME TO BE FOLLOWED ON OP BASIS. - Discharge Plan Disposition: 01 HOME, SELF-CARE Condition: Stable Prescriptions: apixaban [Eliquis] 5 mg PO BID #60 tab hydrocodone-acetaminophen [Stout] 1 tab PO Q6H PRN #15 tab PRN Reason: metformin 500 mg PO DAILY #30 tab silver sulfadiazine [Silvadene] 1 applic TOPICAL BID #1 g - Follow ups/Referrals Follow ups/Referrals: KARTHIKEYAN COFFMAN [Nurse Practitioner] - 01/01/18 3:15 pm KIP COLBY [Staff Physician] - 12/25/17 3:35 pm - Instructions Instructions: Steps to Quit Smoking, [id number], Type 2 Diabetes Mellitus, Diagnosis, Adult, Coping with Quitting Smoking, Preventing Type 2 Diabetes Mellitus, Hemoglobin A1c Test, PICC Insertion, Care After, Hyperglycemia, Easy- to-Read, Cellulitis, Adult, [id number], PICC Home Care Guide, Pioglitazone tablets Additional Instructions: Patient home with IV Nafcillin X 14 days pharm to dose. Patient to follow up daily to ER for Nafcillin. Forms: Patient Portal
== END 2017-12-18 14:20 | disposition home or self-care (01) | DRG 603 ==
LOC: MED/SURG 12:35 → ER 12:35 → MED/SURG 17:01
PROVIDERS: ADMIT Internal Medicine; ATTEND Internal Medicine
DX: J44.9 Chronic obstructive pulmonary disease, unspecified; R60.0 Localized edema; E87.6 Hypokalemia; L02.415 Cutaneous abscess of right lower limb; Z79.899 Other long term (current) drug therapy; I50.9 Heart failure, unspecified; B95.7 Other staphylococcus as the cause of diseases classified elsewhere; R26.89 Other abnormalities of gait and mobility; E11.65 Type 2 diabetes mellitus with hyperglycemia; R79.82 Elevated C-reactive protein (CRP); S81.801A Unspecified open wound, right lower leg, initial encounter; W18.39XA Other fall on same level, initial encounter; I87.2 Venous insufficiency (chronic) (peripheral); L03.115 Cellulitis of right lower limb
CPT/HCPCS: 36415; 36569; 71010; 71020; 71045; 71046; 71275; 73590; 73700; 73706; 80048; 80053; 80202; 82565; 83036; 83605; 83735; 84132; 85025; 85378; 86140; 87040; 87070; 87075; 87077; 87186; 87205; 93005; 93010; 93306; 93970; 93971; 94640; 94760; 96365; 96374; 97110; 97116; 97162; 97530; 99283; 99284; A4216; A4217; A4222; G0378; J1650; J1885; J1940; J2020; J2543; J3370; J3480; J3490; J7030; J7040; J7050; J7060; J7613; J7620; J7626; J8499; S0032